=== PATIENT | female | born 1945 | race Caucasian/White ===

== ENCOUNTER 2018-04-09 11:56 | Emergency (ER) | payer MEDICARE | END 2018-04-09 14:15 | disposition left against medical advice (07) | LOC: JP.ED 11:56 | DX: Z53.21 Procedure and treatment not carried out due to patient leaving prior to being seen by health care provider (principal) ==

== ENCOUNTER 2018-04-10 03:19 | Inpatient (IN) | payer MEDICARE ==
[2018-04-10] MEDS ORDERED: methylPREDNISolone Sodium Succinate 125 MG/2 ML SDV IVPUSH ONE (03:40)
[2018-04-10] MEDS ORDERED: Doxycycline 100 MG in Sodium Chloride 0.9% 100 ML IV SCH (03:45)
[2018-04-10] MEDS ORDERED: Sodium Chloride 0.9% 1,000 ML IV SCH ×2 (03:45→13:00)
[2018-04-10] MEDS ORDERED: Ondansetron 4 MG/2 ML SDV IVPUSH ONE (03:49)
[2018-04-10] MEDS ORDERED: Morphine 2 MG/ML Syringe IVPUSH ONE (03:49)
[2018-04-10] MEDS ORDERED: Albuterol 0.083% 2.5 MG/3 ML Neb Soln NEB ONE (03:50)
--- NOTE | 2018-04-10 03:57 | EDM.PDOC ---
ED HPI GENERAL MEDICAL PROBLEM - General Chief Complaint: Respiratory Problem Stated Complaint: [facility] Time Seen by Provider: 04/10/18 03:27 Source of Information: Reports: Patient, EMS, RN History Limitations: Reports: No Limitations - History of Present Illness INITIAL COMMENTS - FREE TEXT/NARRATIVE: shortness of breath: This is a 73-year-old female presents to emergency room by EMS, she is experiencing shortness of breath. Patient reports has been sick with cough for the past 1-1/2 weeks worsening the past 2 days. Yesterday she was in the emergency room but did not wait for evaluation. She denies chest pain , nausea, vomiting, rash or fever. She did experience a deer tick bite approximately 2 weeks ago. No chronic medications noted. Reports no chronic health conditions except for COPD. Reports has a albuterol multidose inhaler. Smokes cigarettes at least 4 per day, but is trying to quit. 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 ( albuterol multidose inhaler at home) , IV/IO, Oxygen headache Pain Score (Numeric/FACES): 6 - Related Data Allergies Allergy/AdvReac Type Severity Reaction Status Date / Time amoxicillin [Amoxicillin] Allergy Airway Verified 04/10/18 03:35 Tightness Sulfa (Sulfonamide Allergy Rash Verified 04/10/18 03:35 Antibiotics) Home Meds: Home Meds Albuterol Sulfate [Albuterol Sulfate HFA] 2 puff IH Q6HR PRN 03/29/14 [History] Past Medical History HEENT History: Reports: Impaired Vision Respiratory History: Reports: Bronchitis, Recurrent, 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: Musculoskeletal History: Reports: Back Pain, Chronic, Fibromyalgia, Osteoarthritis - Infectious Disease History Infectious Disease History: Reports: Chicken Pox - Past Surgical History GI Surgical History: Reports: Cholecystectomy Neurological Surgical History: Reports: None Social & Family History - Family History Family Medical History: Unobtainable - Tobacco Use Smoking Status *Q: Current Every Day Smoker Years of Tobacco use: 50 Packs/Tins Daily: 0.2 Used Tobacco, but Quit: No Second Hand Smoke Exposure: Yes - Caffeine Use Caffeine Use: Reports: Coffee - Recreational Drug Use Recreational Drug Use: No - Living Situation & Occupation Living situation: Reports: , Alone Occupation: Retired (Lives alone in [facility] area. Has 5 children 3 live in the area.) ED ROS GENERAL - Review of Systems Review Of Systems: See Below Constitutional: Reports: Fatigue, Decreased Appetite, Other (Shortness of breath 1/2 weeks) HEENT: Reports: Other (Headache) Respiratory: Reports: Shortness of Breath, Wheezing, Cough Cardiovascular: Reports: No Symptoms Endocrine: Reports: Fatigue GI/Abdominal: Reports: No Symptoms : Reports: No Symptoms Musculoskeletal: Reports: No Symptoms Skin: Reports: Dryness Neurological: Reports: Headache Psychiatric: Reports: No Symptoms Hematologic/Lymphatic: Reports: No Symptoms Immunologic: Reports: No Symptoms ED EXAM, GENERAL - Physical Exam Exam: See Below Exam Limited By: No Limitations General Appearance: Alert, WD/WN, Mild Distress, Thin Eye Exam: Bilateral Eye: PERRL Ears: Normal External Exam Nose: Normal Inspection, Normal Mucosa, No Blood Throat/Mouth: Normal Inspection, Normal Lips, Normal Teeth, Normal Gums, Normal Oropharynx, Normal Voice, No Airway Compromise Head: Atraumatic, Normocephalic Neck: Normal Inspection, Supple, Non-Tender, Full Range of Motion Respiratory/Chest: Decreased Breath Sounds, Other (Diffuse wheezing noted with cough.) Cardiovascular: Normal Peripheral Pulses, Regular Rate, Rhythm, No Edema, No Murmur GI/Abdominal: Normal Bowel Sounds, Soft, Non-Tender, No Distention (Female) Exam: Deferred Rectal (Female) Exam: Deferred Back Exam: Normal Inspection Extremities: Normal Inspection, Normal Range of Motion, Non-Tender, Normal Capillary Refill Neurological: Alert, Oriented, Normal Cognition, No Motor/Sensory Deficits Psychiatric: Normal Affect, Normal Mood Skin Exam: Warm, Dry, Intact, Normal Color, Other (Single well-healed puncture wound noted to left at the base of the spine. No bull's-eye rashes noted) Lymphatic: No Adenopathy Course - Vital Signs Last Recorded V/S: Last Vital Signs Temp 35.0 C L 04/10/18 03:23 Pulse 102 H 04/10/18 03:50 Resp 14 04/10/18 03:50 BP 123/78 04/10/18 03:50 Pulse Ox 97 04/10/18 03:50 - Orders/Labs/Meds Orders: Active Orders 24 hr Category Date Time Status EKG Documentation Completion [RC] ASDIRECTED Care 04/10/18 03:42 Active RT Aerosol Therapy [RC] ASDIRECTED Care 04/10/18 03:50 Active Chest 1V Frontal [CR] Urgent Exams 04/10/18 03:38 Taken CULTURE BLOOD [BC] Urgent Lab 04/10/18 03:52 Received CULTURE BLOOD [BC] Urgent Lab 04/10/18 04:05 Received UA W/MICROSCOPIC [URIN] Urgent Lab 04/10/18 03:39 Ordered Doxycycline [Vibramycin] 100 mg Med 04/10/18 03:45 Active Sodium Chloride 0.9% [Normal Saline] 100 ml IV Q12H Sodium Chloride 0.9% [Normal Saline] 1,000 ml Med 04/10/18 03:45 Active IV ASDIRECTED Blood Culture x2 Reflex Set [OM.PC] Urgent Oth 04/10/18 03:39 Ordered EKG 12 Lead [EK] Urgent Ther 04/10/18 03:37 Ordered Medication Orders Sodium Chloride (Normal Saline) 1,000 mls @ 100 mls/hr IV ASDIRECTED RICARDO Last Admin: 04/10/18 03:53 Dose: 100 mls/hr Doxycycline Hyclate 100 mg/ (Sodium Chloride) 100 mls @ 100 mls/hr IV Q12H [facility] Last Admin: 04/10/18 04:13 Dose: 100 mls/hr Labs: Laboratory Tests 04/10/18 04/10/18 04/10/18 Range/Units 03:37 03:37 03:52 WBC 13.5 H (4.5-11.0) K/uL RBC 5.40 (3.30-5.50) M/uL Hgb 15.3 H (12.0-15.0) g/dL Hct 46.6 (36.0-48.0) % MCV 86 (80-98) fL MCH 28 (27-31) pg MCHC 33 (32-36) % Plt Count 366 (150-400) K/uL Neut % (Auto) 72 H (36-66) % Lymph % (Auto) 15 L (24-44) % [place] % (Auto) 8 H (2-6) % Eos % (Auto) 5 H (2-4) % Baso % (Auto) 0 (0-1) % PT (9.5-12.0) sec INR (0.80-1.20) Puncture Site Lt radial ABG pH 7.358 (7.350-7.450) ABG pCO2 49.0 H (35.0-42.0) mmHg ABG pO2 94.4 (75.0-100.0) mmHg ABG HCO3 26.8 H (22.0-26.0) mmol/L ABG Total CO2 23.5 (21.0-25.0) mmol/L ABG O2 Saturation 96.9 (95.0-98.0) % ABG O2 Content 20.3 (15.0-23.0) %vol ABG Base Excess 1.1 mm/L ABG Hemoglobin 15.2 (12.0-16.0) g/dL ABG Oxyhemoglobin 94.5 % ABG Carboxyhemoglobin 1.9 H (0.0-1.6) % ABG Methemoglobin 0.6 % Emmanuel Test Passed O2 Delivery Device Hi flow nasal cannu Oxygen Flow Rate 4 L Sodium 138 L (140-148) mmol/L Potassium 4.2 (3.6-5.2) mmol/L Chloride 102 (100-108) mmol/L Carbon Dioxide 29 (21-32) mmol/L Anion Gap 11.2 (5.0-14.0) mmol/L BUN 18 (7-18) mg/dL Creatinine 0.9 (0.6-1.0) mg/dL Est Cr Clr Drug Dosing 37.90 mL/min Estimated GFR (MDRD) > 60 (>60) Glucose 153 H (74-106) mg/dL Calcium 9.0 (8.5-10.1) mg/dL Magnesium (1.8-2.4) mg/dL Total Bilirubin 0.3 (0.2-1.0) mg/dL AST 24 (15-37) U/L ALT 24 (12-78) U/L Alkaline Phosphatase 108 (46-116) U/L Troponin I (0.000-0.056) ng/mL NT-Pro-B Natriuret Pep (5-450) pg/mL Total Protein 6.9 (6.4-8.2) g/dL Albumin 3.0 L (3.4-5.0) g/dL Globulin 3.9 H (2.3-3.5) g/dL Albumin/Globulin Ratio 0.8 L (1.2-2.2) Amylase (25-115) U/L Lipase (73-393) U/L TSH, Ultra Sensitive (0.358-3.740) uIU/mL 04/10/18 04/10/18 04/10/18 Range/Units 03:52 03:52 03:52 WBC (4.5-11.0) K/uL RBC (3.30-5.50) M/uL Hgb (12.0-15.0) g/dL Hct (36.0-48.0) % MCV (80-98) fL MCH (27-31) pg MCHC (32-36) % Plt Count (150-400) K/uL Neut % (Auto) (36-66) % Lymph % (Auto) (24-44) % [place] % (Auto) (2-6) % Eos % (Auto) (2-4) % Baso % (Auto) (0-1) % PT 11.5 (9.5-12.0) sec INR 1.07 (0.80-1.20) Puncture Site ABG pH (7.350-7.450) ABG pCO2 (35.0-42.0) mmHg ABG pO2 (75.0-100.0) mmHg ABG HCO3 (22.0-26.0) mmol/L ABG Total CO2 (21.0-25.0) mmol/L ABG O2 Saturation (95.0-98.0) % ABG O2 Content (15.0-23.0) %vol ABG Base Excess mm/L ABG Hemoglobin (12.0-16.0) g/dL ABG Oxyhemoglobin % ABG Carboxyhemoglobin (0.0-1.6) % ABG Methemoglobin % Emmanuel Test O2 Delivery Device Oxygen Flow Rate L Sodium (140-148) mmol/L Potassium (3.6-5.2) mmol/L Chloride (100-108) mmol/L Carbon Dioxide (21-32) mmol/L Anion Gap (5.0-14.0) mmol/L BUN (7-18) mg/dL Creatinine (0.6-1.0) mg/dL Est Cr Clr Drug Dosing mL/min Estimated GFR (MDRD) (>60) Glucose (74-106) mg/dL Calcium (8.5-10.1) mg/dL Magnesium 2.0 (1.8-2.4) mg/dL Total Bilirubin (0.2-1.0) mg/dL AST (15-37) U/L ALT (12-78) U/L Alkaline Phosphatase (46-116) U/L Troponin I 0.072 H* (0.000-0.056) ng/mL NT-Pro-B Natriuret Pep 279 (5-450) pg/mL Total Protein (6.4-8.2) g/dL Albumin (3.4-5.0) g/dL Globulin (2.3-3.5) g/dL Albumin/Globulin Ratio (1.2-2.2) Amylase 52 (25-115) U/L Lipase 51 L (73-393) U/L TSH, Ultra Sensitive 6.503 H (0.358-3.740) uIU/mL Meds: Medications Generic Name Dose Route Start Last Admin Trade Name Freq PRN Reason Stop Dose Admin Sodium Chloride 1,000 mls @ 100 mls/hr 04/10/18 03:45 04/10/18 03:53 Normal Saline IV 100 mls/hr ASDIRECTED RICARDO Administration Doxycycline Hyclate 100 mg/ 100 mls @ 100 mls/hr 04/10/18 03:45 04/10/18 04: 13 Sodium Chloride IV 100 mls/hr Q12H RICARDO Administration Discontinued Medications Generic Name Dose Route Start Last Admin Trade Name Freq PRN Reason Stop Dose Admin Albuterol 2.5 mg 04/10/18 03:50 04/10/18 04:09 Proventil Neb Soln NEB 04/10/18 03:51 2.5 mg ONETIME ONE Administration Methylprednisolone Sodium Succinate 125 mg 04/10/18 03:40 04/10/18 04:09 Solu-Medrol IVPUSH 04/10/18 03:41 125 mg ONETIME ONE Administration Morphine Sulfate 1 mg 04/10/18 03:49 04/10/18 04:00 Morphine IVPUSH 04/10/18 03:50 1 mg ONETIME ONE Administration Ondansetron HCl 4 mg 04/10/18 03:49 04/10/18 04:05 Zofran IVPUSH 04/10/18 03:50 4 mg ONETIME ONE Administration - Re-Assessments/Exams Free Text/Narrative Re-Assessment/Exam: 04/10/18 04:01 Patient placed in room 1209, workup for COPD exacerbation. Labs: CBC, CMP, TSH, troponin, magnesium, UA, ABGs, blood cultures Imaging: Chest x-ray Other: EKG Medications: Morphine 1 mg IV, normal saline at 100 ML's per hour, Solu-Medrol 120 5I milligrams IV, Zofran 4 mg IV, doxycycline 100 mg IV. Plan We'll admit to 2 [address]. for further care and treatment. Discussed with patient and her daughter and granddaughter, all in agreement. 04/10/18 04:57 Lab: Troponin 0.072, will repeat in 6 hours. Patient is not experiencing chest pain at this time. Departure - Departure Time of Disposition: 04:09 Disposition: Admitted As Inpatient 64 Condition: Fair Clinical Impression: COPD exacerbation, Tobacco use - Discharge Information - My Orders Last 24 Hours: My Active Orders 04/10/18 03:37 EKG 12 Lead [EK] Urgent 04/10/18 03:38 Chest 1V Frontal [CR] Urgent 04/10/18 03:39 UA W/MICROSCOPIC [URIN] Urgent Blood Culture x2 Reflex Set [OM.PC] Urgent 04/10/18 03:42 EKG Documentation Completion [RC] ASDIRECTED 04/10/18 03:45 Doxycycline [Vibramycin] 100 mg Sodium Chloride 0.9% [Normal Saline] 100 ml IV Q12H Sodium Chloride 0.9% [Normal Saline] 1,000 ml IV ASDIRECTED 04/10/18 03:50 RT Aerosol Therapy [RC] ASDIRECTED 04/10/18 03:52 CULTURE BLOOD [BC] Urgent 04/10/18 04:05 CULTURE BLOOD [BC] Urgent - Assessment/Plan Last 24 Hours: My Active Orders 04/10/18 03:37 EKG 12 Lead [EK] Urgent 04/10/18 03:38 Chest 1V Frontal [CR] Urgent 04/10/18 03:39 UA W/MICROSCOPIC [URIN] Urgent Blood Culture x2 Reflex Set [OM.PC] Urgent 04/10/18 03:42 EKG Documentation Completion [RC] ASDIRECTED 04/10/18 03:45 Doxycycline [Vibramycin] 100 mg Sodium Chloride 0.9% [Normal Saline] 100 ml IV Q12H Sodium Chloride 0.9% [Normal Saline] 1,000 ml IV ASDIRECTED 04/10/18 03:50 RT Aerosol Therapy [RC] ASDIRECTED 04/10/18 03:52 CULTURE BLOOD [BC] Urgent 04/10/18 04:05 CULTURE BLOOD [BC] Urgent
--- NOTE | 2018-04-10 04:58 | PCM.HP ---
H&P History of Present Illness - General Date of Service: 04/10/18 Admit Problem/Dx: Admission Diagnosis/Problem Admission Diagnosis/Problem Chronic obstructive pulmonary disease Source of Information: Patient, RN Notes Reviewed - History of Present Illness Initial Comments - Free Text/Narative: shortness of breath: This is a 73-year-old female presents to emergency room by EMS, she is experiencing shortness of breath. Patient reports has been sick with cough for the past 1-1/2 weeks worsening the past 2 days. Yesterday she was in the emergency room but did not wait for evaluation. She denies chest pain , nausea, vomiting, rash or fever. She did experience a deer tick bite approximately 2 weeks ago. No chronic medications noted. Reports no chronic health conditions except for COPD. Reports has a albuterol multidose inhaler. Smokes cigarettes at least 4 per day, but is trying to quit. Lives alone in [facility] Patient placed in room 1209, workup for COPD exacerbation. Labs: CBC, CMP, TSH, troponin, magnesium, UA, ABGs, blood cultures Imaging: Chest x-ray Other: EKG Medications: Morphine 1 mg IV, normal saline at 100 ML's per hour, Solu-Medrol 120 5I milligrams IV, Zofran 4 mg IV, doxycycline 100 mg IV. Plan We'll admit to 2 [address]. for further care and treatment. Discussed with patient and her daughter and granddaughter, all in agreement. 04/10/18 04:57 Lab: Troponin 0.072, will repeat in 6 hours. Patient is not experiencing chest pain at this time. Onset of Symptoms: Reports: Sudden Duration of Symptoms: Reports: Week(s): (1.5 weeks), Getting Worse Severity: Moderate Improves with: Reports: None Worsens with: Reports: None Context: Reports: Other (Tobacco use and COPD) Associated Symptoms: Reports: Cough, Headaches, Loss of Appetite, Shortness of Breath headache Pain Score (Numeric/FACES): 6 - Related Data Allergies/Adverse Reactions: Allergies Allergy/AdvReac Type Severity Reaction Status Date / Time amoxicillin [Amoxicillin] Allergy Airway Verified 04/10/18 03:35 Tightness Sulfa (Sulfonamide Allergy Rash Verified 04/10/18 03:35 Antibiotics) Home Medications: Home Meds Albuterol Sulfate [Albuterol Sulfate HFA] 2 puff IH Q6HR PRN 03/29/14 [History] Past Medical History HEENT History: Reports: Impaired Vision Respiratory History: Reports: Bronchitis, Recurrent, COPD [employer] History: Reports: Musculoskeletal History: Reports: Back Pain, Chronic, Fibromyalgia, Osteoarthritis - Infectious Disease History Infectious Disease History: Reports: Chicken Pox - Past Surgical History GI Surgical History: Reports: Cholecystectomy Neurological Surgical History: Reports: None Social & Family History - Family History Family Medical History: Unobtainable - Tobacco Use Smoking Status *Q: Current Every Day Smoker Years of Tobacco use: 50 Packs/Tins Daily: 0.2 Used Tobacco, but Quit: No Second Hand Smoke Exposure: Yes - Caffeine Use Caffeine Use: Reports: Coffee - Recreational Drug Use Recreational Drug Use: No - Living Situation & Occupation Living situation: Reports: , Alone Occupation: Retired (Lives alone in [facility]. Has 5 children 3 live in the area.) H&P Review of Systems - Review of Systems: Review Of Systems: See Below General: Reports: Weakness, Other (Shortness of breath with cough) HEENT: Reports: Headaches Pulmonary: Reports: Shortness of Breath, Wheezing, Cough, Sputum Cardiovascular: Reports: No Symptoms Gastrointestinal: Reports: No Symptoms Genitourinary: Reports: No Symptoms Musculoskeletal: Reports: No Symptoms Skin: Reports: Other (Reports tick bite 2 weeks ago to the low back) Psychiatric: Reports: No Symptoms Neurological: Reports: Headache Hematologic/Lymphatic: Reports: No Symptoms Immunologic: Reports: No Symptoms Exam - Exam Exam: See Below - Vital Signs Vital Signs: Last Vital Signs Temp 35.0 C L 04/10/18 03:23 Pulse 102 H 04/10/18 03:50 Resp 14 04/10/18 03:50 BP 123/78 04/10/18 03:50 Pulse Ox 97 04/10/18 03:50 Weight: 44.452 kg - Exam Quality Assessment: Supplemental Oxygen, DVT Prophylaxis General: Alert, Oriented, Cooperative, Mild Distress, Other (Thin, neat and well-groomed) HEENT: PERRLA, Conjunctiva Clear, EACs Clear, EOMI, Hearing Intact, Mucosa Moist & [place], Nares Patent, Normal Nasal Septum, Posterior Pharynx Clear, Pupils Equal, Pupils Reactive, TMs Clear Neck: Supple, Trachea Midline Lungs: Decreased Breath Sounds, Wheezing (Diffuse bilateral wheezing noted) Cardiovascular: Regular Rate, Regular Rhythm, Normal S1, Normal S2 GI/Abdominal Exam: Normal Bowel Sounds, Soft, Non-Tender (Female) Exam: Deferred Rectal (Female) Exam: Deferred Back Exam: Normal Inspection Extremities: Normal Inspection, Normal Range of Motion, Non-Tender, No Pedal Edema, Normal Capillary Refill Peripheral Pulses: 2+: Radial (L), Radial (R), Dorsalis Pedis (L), Dorsalis Pedis (R) Skin: Warm, Dry, Intact Neurological: Reflexes Equal Bilateral, Strength Equal Bilateral, Normal Speech , Normal Tone Neuro Extensive - Mental Status: Alert, Oriented x3, Normal Mood/Affect, Normal Cognition Neuro Extensive - Motor, Sensory, Reflexes: Normal Reflexes Psychiatric: Alert, Normal Affect, Normal Mood - Patient Data Lab Results Last 24 hrs: Laboratory Results - last 24 hr 04/10/18 04/10/18 04/10/18 Range/Units 03:37 03:37 03:52 WBC 13.5 H (4.5-11.0) K/uL RBC 5.40 (3.30-5.50) M/uL Hgb 15.3 H (12.0-15.0) g/dL Hct 46.6 (36.0-48.0) % MCV 86 (80-98) fL MCH 28 (27-31) pg MCHC 33 (32-36) % Plt Count 366 (150-400) K/uL Neut % (Auto) 72 H (36-66) % Lymph % (Auto) 15 L (24-44) % Lynn % (Auto) 8 H (2-6) % Eos % (Auto) 5 H (2-4) % Baso % (Auto) 0 (0-1) % PT (9.5-12.0) sec INR (0.80-1.20) Puncture Site Lt radial ABG pH 7.358 (7.350-7.450) ABG pCO2 49.0 H (35.0-42.0) mmHg ABG pO2 94.4 (75.0-100.0) mmHg ABG HCO3 26.8 H (22.0-26.0) mmol/L ABG Total CO2 23.5 (21.0-25.0) mmol/L ABG O2 Saturation 96.9 (95.0-98.0) % ABG O2 Content 20.3 (15.0-23.0) %vol ABG Base Excess 1.1 mm/L ABG Hemoglobin 15.2 (12.0-16.0) g/dL ABG Oxyhemoglobin 94.5 % ABG Carboxyhemoglobin 1.9 H (0.0-1.6) % ABG Methemoglobin 0.6 % Emmanuel Test Passed O2 Delivery Device Hi flow nasal cannu Oxygen Flow Rate 4 L Sodium 138 L (140-148) mmol/L Potassium 4.2 (3.6-5.2) mmol/L Chloride 102 (100-108) mmol/L Carbon Dioxide 29 (21-32) mmol/L Anion Gap 11.2 (5.0-14.0) mmol/L BUN 18 (7-18) mg/dL Creatinine 0.9 (0.6-1.0) mg/dL Est Cr Clr Drug Dosing 37.90 mL/min Estimated GFR (MDRD) > 60 (>60) Glucose 153 H (74-106) mg/dL Calcium 9.0 (8.5-10.1) mg/dL Magnesium (1.8-2.4) mg/dL Total Bilirubin 0.3 (0.2-1.0) mg/dL AST 24 (15-37) U/L ALT 24 (12-78) U/L Alkaline Phosphatase 108 (46-116) U/L Troponin I (0.000-0.056) ng/mL NT-Pro-B Natriuret Pep (5-450) pg/mL Total Protein 6.9 (6.4-8.2) g/dL Albumin 3.0 L (3.4-5.0) g/dL Globulin 3.9 H (2.3-3.5) g/dL Albumin/Globulin Ratio 0.8 L (1.2-2.2) Amylase (25-115) U/L Lipase (73-393) U/L TSH, Ultra Sensitive (0.358-3.740) uIU/mL 04/10/18 04/10/18 04/10/18 Range/Units 03:52 03:52 03:52 WBC (4.5-11.0) K/uL RBC (3.30-5.50) M/uL Hgb (12.0-15.0) g/dL Hct (36.0-48.0) % MCV (80-98) fL MCH (27-31) pg MCHC (32-36) % Plt Count (150-400) K/uL Neut % (Auto) (36-66) % Lymph % (Auto) (24-44) % Lynn % (Auto) (2-6) % Eos % (Auto) (2-4) % Baso % (Auto) (0-1) % PT 11.5 (9.5-12.0) sec INR 1.07 (0.80-1.20) Puncture Site ABG pH (7.350-7.450) ABG pCO2 (35.0-42.0) mmHg ABG pO2 (75.0-100.0) mmHg ABG HCO3 (22.0-26.0) mmol/L ABG Total CO2 (21.0-25.0) mmol/L ABG O2 Saturation (95.0-98.0) % ABG O2 Content (15.0-23.0) %vol ABG Base Excess mm/L ABG Hemoglobin (12.0-16.0) g/dL ABG Oxyhemoglobin % ABG Carboxyhemoglobin (0.0-1.6) % ABG Methemoglobin % Emmanuel Test O2 Delivery Device Oxygen Flow Rate L Sodium (140-148) mmol/L Potassium (3.6-5.2) mmol/L Chloride (100-108) mmol/L Carbon Dioxide (21-32) mmol/L Anion Gap (5.0-14.0) mmol/L BUN (7-18) mg/dL Creatinine (0.6-1.0) mg/dL Est Cr Clr Drug Dosing mL/min Estimated GFR (MDRD) (>60) Glucose (74-106) mg/dL Calcium (8.5-10.1) mg/dL Magnesium 2.0 (1.8-2.4) mg/dL Total Bilirubin (0.2-1.0) mg/dL AST (15-37) U/L ALT (12-78) U/L Alkaline Phosphatase (46-116) U/L Troponin I 0.072 H* (0.000-0.056) ng/mL NT-Pro-B Natriuret Pep 279 (5-450) pg/mL Total Protein (6.4-8.2) g/dL Albumin (3.4-5.0) g/dL Globulin (2.3-3.5) g/dL Albumin/Globulin Ratio (1.2-2.2) Amylase 52 (25-115) U/L Lipase 51 L (73-393) U/L TSH, Ultra Sensitive 6.503 H (0.358-3.740) uIU/mL Result Diagrams: 04/10/18 03:37 04/10/18 03:52 - Problem List (1) COPD exacerbation SNOMED Code(s): 832109856 ICD Code: J44.1 - CHRONIC OBSTRUCTIVE PULMONARY DISEASE W (ACUTE) EXACERBATION Status: Acute Priority: High Current Visit: Yes (2) Tobacco use SNOMED Code(s): 726503744 ICD Code: Z72.0 - TOBACCO USE Status: Acute Priority: High Current Visit: Yes (3) Elevated troponin I level SNOMED Code(s): 108406339 ICD Code: R74.8 - ABNORMAL LEVELS OF OTHER SERUM ENZYMES Status: Acute Priority: Medium Current Visit: Yes (4) Tick bite of back SNOMED Code(s): 61986622 ICD Code: S30.860A - INSECT BITE (NONVENOMOUS) OF LOWER BACK AND PELVIS, INIT ; W57.XXXA - BIT/STUNG BY NONVENOM INSECT & OTH NONVENOM ARTHROPODS, INIT Status: Acute Priority: Medium Current Visit: Yes Qualifiers: Encounter type: initial encounter Qualified Code(s): S30.860A - Insect bite (nonvenomous) of lower back and pelvis, initial encounter; W57.XXXA - Bitten or stung by nonvenomous insect and other nonvenomous arthropods, initial encounter Problem List Initiated/Reviewed/Updated: Yes Orders Last 24hrs: Active Orders 24 hr Category Date Time Status Patient Status Manage Transfer [TRANSFER] Routine ADT 04/10/18 04:11 Active EKG Documentation Completion [RC] ASDIRECTED Care 04/10/18 03:42 Active RT Aerosol Therapy [RC] ASDIRECTED Care 04/10/18 03:50 Active Chest 1V Frontal [CR] Urgent Exams 04/10/18 03:38 Taken CULTURE BLOOD [BC] Urgent Lab 04/10/18 03:52 Received CULTURE BLOOD [BC] Urgent Lab 04/10/18 04:05 Received UA W/MICROSCOPIC [URIN] Urgent Lab 04/10/18 03:39 Ordered Doxycycline [Vibramycin] 100 mg Med 04/10/18 03:45 Active Sodium Chloride 0.9% [Normal Saline] 100 ml IV Q12H Sodium Chloride 0.9% [Normal Saline] 1,000 ml Med 04/10/18 03:45 Active IV ASDIRECTED Blood Culture x2 Reflex Set [OM.PC] Urgent Oth 04/10/18 03:39 Ordered Resuscitation Status Routine Resus Stat 04/10/18 04:13 Ordered EKG 12 Lead [EK] Urgent Ther 04/10/18 03:37 Ordered Medication Orders Sodium Chloride (Normal Saline) 1,000 mls @ 100 mls/hr IV ASDIRECTED RICARDO Last Admin: 04/10/18 03:53 Dose: 100 mls/hr Doxycycline Hyclate 100 mg/ (Sodium Chloride) 100 mls @ 100 mls/hr IV Q12H COUNT INCLUDES THE [facility] Last Admin: 04/10/18 04:13 Dose: 100 mls/hr Assessment/Plan Comment:: ASSESSMENT / PLAN -This is 73-year-old present to ER with complaints of shortness of breath starting for the past one and half weeks worse the last 2 days, unable to breath effectively, call ambulance to transport to the hospital/ER for further care and treatment. In emergency room she had labs, chest x-ray, EKG Medications : albuterol neb, morphine 1 mg IV, Zofran 4 mg IV, IV fluids normal saline at 100 ML's per hour, Solu-Medrol 125 mg IV COPD exacerbation -Admit to [address] [place] [address] for further monitoring -IV Fluids for rehydration NS at 100 mL per hour -IV Antibiotic: doxycycline 100mg IV every 12 hours -IV Solu-Medrol 125 mg given in ER, order 625 mg IV every 6 hrs -albuterol nebulizer every 4 hours as needed for wheezing and cough -Duo nebu ; schedule nebulize every 6 hours oxygen to keep -oxygen per high flow nasal cannula to keep oxygen sats greater than 92% -Advise to notify nurses of any chest pain or other symptoms -blood cultures x2 pending Elevated troponin - Repeat at 0900 Tobacco use -Declines patch Tick bite -Lyme disease titer pending -IV doxycycline 100 mg every 12 hours Maintenance issues -Orders home meds: no home meds -Nutrition: regular diet -Avila catheter not indicated at this time -DVT: Lovenox 30 mg subcut -PPI: IV Protonix 40mg daily CODE STATUS: FULL CODE Admission status: Admit to [address] [place] [address] Admission justification. This patient will be admitted for inpatient services and is medically appropriate meeting medical necessity for inpatient admission as outlined in my documentation. I reasonably expect the patient will require inpatient services that span. Time over 2 midnights. I reasonably expect this patient to be discharged or transferred within 96 hours after admission to the our community hospital. Disposition: home Primary care provider: Dr. Andrade Hospitalist: Dr. Hernandez
[2018-04-10] MEDS ORDERED: Morphine 2 MG/ML Syringe IVPUSH PRN (05:02)
[2018-04-10] MEDS ORDERED: Docusate Sodium 100 MG Cap PO PRN (05:02)
[2018-04-10] MEDS ORDERED: Ondansetron 4 MG Tab.DIS PO PRN (05:02)
[2018-04-10] MEDS ORDERED: Ondansetron 4 MG/2 ML SDV IV PRN (05:02)
[2018-04-10] MEDS ORDERED: LORazepam 2 MG/ML SDV IV PRN (05:02)
[2018-04-10] MEDS ORDERED: Albuterol 0.083% 2.5 MG/3 ML Neb Soln NEB PRN (05:02)
[2018-04-10] MEDS ORDERED: Bisacodyl 5 MG Tab PO PRN (05:02)
[2018-04-10] MEDS ORDERED: Acetaminophen 325 MG Tab PO PRN (05:02)
[2018-04-10] MEDS ORDERED: Albuterol/Ipratropium 3.0-0.5 MG/3 ML Neb Soln NEB SCH (06:00)
[2018-04-10] MEDS ORDERED: Pantoprazole 40 MG Vial IVPUSH SCH (07:30)
[2018-04-10] MEDS: Enoxaparin 40 MG/0.4 ML Syringe SUBCUT SCH (08:41)
--- NOTE | 2018-04-10 08:42 | CR ---
CHEST: Portable CLINICAL HISTORY:SOB COMPARISON:None available FINDINGS: The lungs are emphysematous. There is mild prominence of the right hilum. This is likely p ulmonary vascularity. No infiltrate or effusions are identified. IMPRESSION: Moderate emphysematous changes
[2018-04-10] MEDS: oxyCODONE 5 MG Tab PO PRN (08:46)
[2018-04-10] MEDS ORDERED: methylPREDNISolone Sodium Succinate 40 MG/1 ML SDV IV SCH (09:10)
[2018-04-10] MEDS: methylPREDNISolone Sodium Succinate 125 MG/2 ML SDV IV SCH ×3 (09:58→21:42)
[2018-04-10] MEDS: Albuterol/Ipratropium 3.0-0.5 MG/3 ML Neb Soln NEB SCH ×3 (11:03→20:36)
--- NOTE | 2018-04-10 12:12 | PCM.PN ---
- General Info Date of Service: 04/10/18 Admission Dx/Problem (Free Text): COPD, SOB Subjective Update: Ms. Whitten states she has been having increased SOB over the last week or so. It was worse yesterday and attempted to be seen in the ER. She left without being seen at that time but returned later and was admitted due to her SOB and COPD. This morning the patient states she feels '90%' better but still feels SOB. Functional Status: Reports: Pain Controlled - Review of Systems General: Reports: Weakness. Denies: Fever HEENT: Reports: No Symptoms Pulmonary: Reports: Shortness of Breath, Wheezing Cardiovascular: Denies: Chest Pain, Palpitations Gastrointestinal: Reports: Decreased Appetite Genitourinary: Reports: No Symptoms Skin: Reports: No Symptoms Neurological: Reports: No Symptoms - Patient Data Vitals - Most Recent: Last Vital Signs Temp 35.6 C 04/10/18 11:00 Pulse 79 04/10/18 11:00 Resp 18 04/10/18 11:00 BP 92/54 L 04/10/18 11:00 Pulse Ox 96 04/10/18 11:00 Weight - Most Recent: 44.452 kg I&O - Last 24 Hours: Intake & Output 04/09/18 04/10/18 04/10/18 22:59 06:59 14:59 Output Total 200 Balance -200 Lab Results Last 24 Hours: Laboratory Results - last 24 hr 04/10/18 04/10/18 04/10/18 Range/Units 03:37 03:37 03:52 WBC 13.5 H (4.5-11.0) K/uL RBC 5.40 (3.30-5.50) M/uL Hgb 15.3 H (12.0-15.0) g/dL Hct 46.6 (36.0-48.0) % MCV 86 (80-98) fL MCH 28 (27-31) pg MCHC 33 (32-36) % Plt Count 366 (150-400) K/uL Neut % (Auto) 72 H (36-66) % Lymph % (Auto) 15 L (24-44) % [place] % (Auto) 8 H (2-6) % Eos % (Auto) 5 H (2-4) % Baso % (Auto) 0 (0-1) % PT (9.5-12.0) sec INR (0.80-1.20) Puncture Site Lt radial ABG pH 7.358 (7.350-7.450) ABG pCO2 49.0 H (35.0-42.0) mmHg ABG pO2 94.4 (75.0-100.0) mmHg ABG HCO3 26.8 H (22.0-26.0) mmol/L ABG Total CO2 23.5 (21.0-25.0) mmol/L ABG O2 Saturation 96.9 (95.0-98.0) % ABG O2 Content 20.3 (15.0-23.0) %vol ABG Base Excess 1.1 mm/L ABG Hemoglobin 15.2 (12.0-16.0) g/dL ABG Oxyhemoglobin 94.5 % ABG Carboxyhemoglobin 1.9 H (0.0-1.6) % ABG Methemoglobin 0.6 % Emmanuel Test Passed O2 Delivery Device Hi flow nasal cannu Oxygen Flow Rate 4 L Sodium 138 L (140-148) mmol/L Potassium 4.2 (3.6-5.2) mmol/L Chloride 102 (100-108) mmol/L Carbon Dioxide 29 (21-32) mmol/L Anion Gap 11.2 (5.0-14.0) mmol/L BUN 18 (7-18) mg/dL Creatinine 0.9 (0.6-1.0) mg/dL Est Cr Clr Drug Dosing 37.90 mL/min Estimated GFR (MDRD) > 60 (>60) Glucose 153 H (74-106) mg/dL Calcium 9.0 (8.5-10.1) mg/dL Magnesium (1.8-2.4) mg/dL Total Bilirubin 0.3 (0.2-1.0) mg/dL AST 24 (15-37) U/L ALT 24 (12-78) U/L Alkaline Phosphatase 108 (46-116) U/L Troponin I (0.000-0.056) ng/mL NT-Pro-B Natriuret Pep (5-450) pg/mL Total Protein 6.9 (6.4-8.2) g/dL Albumin 3.0 L (3.4-5.0) g/dL Globulin 3.9 H (2.3-3.5) g/dL Albumin/Globulin Ratio 0.8 L (1.2-2.2) Amylase (25-115) U/L Lipase (73-393) U/L TSH, Ultra Sensitive (0.358-3.740) uIU/mL Urine Color Urine Appearance Urine pH (4.5-8.0) Ur Specific [place] (1.008-1.030) Urine Protein (NEGATIVE) mg/dL Urine Glucose (UA) (NEGATIVE) mg/dL Urine Ketones (NEGATIVE) mg/dL Urine Occult Blood (NEGATIVE) Urine Nitrite (NEGATIVE) Urine Bilirubin (NEGATIVE) Urine Urobilinogen (NORMAL) mg/dL Ur Leukocyte Esterase (NEGATIVE) Urine RBC (0-5) Urine WBC (0-5) Ur Epithelial Cells Amorphous Sediment Urine Bacteria Urine Mucus 04/10/18 04/10/18 04/10/18 Range/Units 03:52 03:52 03:52 WBC (4.5-11.0) K/uL RBC (3.30-5.50) M/uL Hgb (12.0-15.0) g/dL Hct (36.0-48.0) % MCV (80-98) fL MCH (27-31) pg MCHC (32-36) % Plt Count (150-400) K/uL Neut % (Auto) (36-66) % Lymph % (Auto) (24-44) % [place] % (Auto) (2-6) % Eos % (Auto) (2-4) % Baso % (Auto) (0-1) % PT 11.5 (9.5-12.0) sec INR 1.07 (0.80-1.20) Puncture Site ABG pH (7.350-7.450) ABG pCO2 (35.0-42.0) mmHg ABG pO2 (75.0-100.0) mmHg ABG HCO3 (22.0-26.0) mmol/L ABG Total CO2 (21.0-25.0) mmol/L ABG O2 Saturation (95.0-98.0) % ABG O2 Content (15.0-23.0) %vol ABG Base Excess mm/L ABG Hemoglobin (12.0-16.0) g/dL ABG Oxyhemoglobin % ABG Carboxyhemoglobin (0.0-1.6) % ABG Methemoglobin % Emmanuel Test O2 Delivery Device Oxygen Flow Rate L Sodium (140-148) mmol/L Potassium (3.6-5.2) mmol/L Chloride (100-108) mmol/L Carbon Dioxide (21-32) mmol/L Anion Gap (5.0-14.0) mmol/L BUN (7-18) mg/dL Creatinine (0.6-1.0) mg/dL Est Cr Clr Drug Dosing mL/min Estimated GFR (MDRD) (>60) Glucose (74-106) mg/dL Calcium (8.5-10.1) mg/dL Magnesium 2.0 (1.8-2.4) mg/dL Total Bilirubin (0.2-1.0) mg/dL AST (15-37) U/L ALT (12-78) U/L Alkaline Phosphatase (46-116) U/L Troponin I 0.072 H* (0.000-0.056) ng/mL NT-Pro-B Natriuret Pep 279 (5-450) pg/mL Total Protein (6.4-8.2) g/dL Albumin (3.4-5.0) g/dL Globulin (2.3-3.5) g/dL Albumin/Globulin Ratio (1.2-2.2) Amylase 52 (25-115) U/L Lipase 51 L (73-393) U/L TSH, Ultra Sensitive 6.503 H (0.358-3.740) uIU/mL Urine Color Urine Appearance Urine pH (4.5-8.0) Ur Specific [place] (1.008-1.030) Urine Protein (NEGATIVE) mg/dL Urine Glucose (UA) (NEGATIVE) mg/dL Urine Ketones (NEGATIVE) mg/dL Urine Occult Blood (NEGATIVE) Urine Nitrite (NEGATIVE) Urine Bilirubin (NEGATIVE) Urine Urobilinogen (NORMAL) mg/dL Ur Leukocyte Esterase (NEGATIVE) Urine RBC (0-5) Urine WBC (0-5) Ur Epithelial Cells Amorphous Sediment Urine Bacteria Urine Mucus 04/10/18 04/10/18 Range/Units 05:02 08:55 WBC (4.5-11.0) K/uL RBC (3.30-5.50) M/uL Hgb (12.0-15.0) g/dL Hct (36.0-48.0) % MCV (80-98) fL MCH (27-31) pg MCHC (32-36) % Plt Count (150-400) K/uL Neut % (Auto) (36-66) % Lymph % (Auto) (24-44) % [place] % (Auto) (2-6) % Eos % (Auto) (2-4) % Baso % (Auto) (0-1) % PT (9.5-12.0) sec INR (0.80-1.20) Puncture Site ABG pH (7.350-7.450) ABG pCO2 (35.0-42.0) mmHg ABG pO2 (75.0-100.0) mmHg ABG HCO3 (22.0-26.0) mmol/L ABG Total CO2 (21.0-25.0) mmol/L ABG O2 Saturation (95.0-98.0) % ABG O2 Content (15.0-23.0) %vol ABG Base Excess mm/L ABG Hemoglobin (12.0-16.0) g/dL ABG Oxyhemoglobin % ABG Carboxyhemoglobin (0.0-1.6) % ABG Methemoglobin % Emmanuel Test O2 Delivery Device Oxygen Flow Rate L Sodium (140-148) mmol/L Potassium (3.6-5.2) mmol/L Chloride (100-108) mmol/L Carbon Dioxide (21-32) mmol/L Anion Gap (5.0-14.0) mmol/L BUN (7-18) mg/dL Creatinine (0.6-1.0) mg/dL Est Cr Clr Drug Dosing mL/min Estimated GFR (MDRD) (>60) Glucose (74-106) mg/dL Calcium (8.5-10.1) mg/dL Magnesium (1.8-2.4) mg/dL Total Bilirubin (0.2-1.0) mg/dL AST (15-37) U/L ALT (12-78) U/L Alkaline Phosphatase (46-116) U/L Troponin I 0.113 H* (0.000-0.056) ng/mL NT-Pro-B Natriuret Pep (5-450) pg/mL Total Protein (6.4-8.2) g/dL Albumin (3.4-5.0) g/dL Globulin (2.3-3.5) g/dL Albumin/Globulin Ratio (1.2-2.2) Amylase (25-115) U/L Lipase (73-393) U/L TSH, Ultra Sensitive (0.358-3.740) uIU/mL Urine Color Yellow Urine Appearance Slightly cloudy Urine pH 5.0 (4.5-8.0) Ur Specific [place] 1.020 (1.008-1.030) Urine Protein Negative (NEGATIVE) mg/dL Urine Glucose (UA) Normal (NEGATIVE) mg/dL Urine Ketones Negative (NEGATIVE) mg/dL Urine Occult Blood Moderate (NEGATIVE) Urine Nitrite Negative (NEGATIVE) Urine Bilirubin Negative (NEGATIVE) Urine Urobilinogen Normal (NORMAL) mg/dL Ur Leukocyte Esterase Large (NEGATIVE) Urine RBC 0-5 (0-5) Urine WBC 5-10 H (0-5) Ur Epithelial Cells Moderate Amorphous Sediment Not seen Urine Bacteria Moderate Urine Mucus Few Med Orders - Current: Current Medications Acetaminophen (Tylenol) 650 mg PO Q4H PRN PRN Reason: Pain (Mild 1-3)/fever Albuterol (Proventil Neb Soln) 2.5 mg NEB Q4H PRN PRN Reason: Shortness Of Breath/wheezing Albuterol/Ipratropium (Duoneb 3.0-0.5 Mg/3 Ml) 3 ml NEB QIDRT [facility] Last Admin: 04/10/18 11:03 Dose: Not Given Bisacodyl (Dulcolax) 5 mg PO DAILY PRN PRN Reason: Constipation Docusate Sodium (Colace) 100 mg PO BID PRN PRN Reason: Constipation Enoxaparin Sodium (Lovenox) 40 mg SUBCUT DAILY [facility] Last Admin: 04/10/18 08:41 Dose: 40 mg Sodium Chloride (Normal Saline) 1,000 mls @ 100 mls/hr IV ASDIRECTED [facility] Last Admin: 04/10/18 03:53 Dose: 100 mls/hr Doxycycline Hyclate 100 mg/ (Sodium Chloride) 100 mls @ 100 mls/hr IV Q12H [facility] Lorazepam (Ativan) 1 mg IV Q6H PRN PRN Reason: Nausea/Vomiting Methylprednisolone Sodium Succinate (Solu-Medrol) 62.5 mg IV Q6H [facility] Last Admin: 04/10/18 09:58 Dose: 62.5 mg Morphine Sulfate (Morphine) 0 mg IVPUSH Q2H PRN PRN Reason: Pain (severe 7-10) Ondansetron HCl (Zofran Odt) 4 mg PO Q6H PRN PRN Reason: Nausea able to take PO Last Admin: 04/10/18 09:52 Dose: 4 mg Ondansetron HCl (Zofran) 4 mg IV Q4H PRN PRN Reason: Nausea/Vomiting Last Admin: 04/10/18 10:26 Dose: 4 mg Oxycodone HCl (Oxycodone) 5 mg PO Q4H PRN PRN Reason: Pain (moderate 4-6) Last Admin: 04/10/18 08:46 Dose: 5 mg Pantoprazole Sodium (Protonix Iv) 40 mg IVPUSH DAILY@0730 [facility] Last Admin: 04/10/18 08:39 Dose: 40 mg Discontinued Medications Albuterol (Proventil Neb Soln) 2.5 mg NEB ONETIME ONE Stop: 04/10/18 03:51 Last Admin: 04/10/18 04:09 Dose: 2.5 mg Albuterol/Ipratropium (Duoneb 3.0-0.5 Mg/3 Ml) 3 ml NEB QID [facility] Last Admin: 04/10/18 05:55 Dose: 3 ml Doxycycline Hyclate 100 mg/ (Sodium Chloride) 100 mls @ 100 mls/hr IV Q12H [facility] Last Admin: 04/10/18 04:13 Dose: 100 mls/hr Methylprednisolone Sodium Succinate (Solu-Medrol) 125 mg IVPUSH ONETIME ONE Stop: 04/10/18 03:41 Last Admin: 04/10/18 04:09 Dose: 125 mg Methylprednisolone Sodium Succinate (Solu-Medrol) 62.5 mg IV Q6H [facility] Morphine Sulfate (Morphine) 1 mg IVPUSH ONETIME ONE Stop: 04/10/18 03:50 Last Admin: 04/10/18 04:00 Dose: 1 mg Ondansetron HCl (Zofran) 4 mg IVPUSH ONETIME ONE Stop: 04/10/18 03:50 Last Admin: 04/10/18 04:05 Dose: 4 mg - Exam Quality Assessment: Supplemental Oxygen, DVT Prophylaxis General: Alert, Oriented, Cooperative HEENT: Pupils Equal, Pupils Reactive Neck: Supple Lungs: Decreased Breath Sounds, Crackles, Wheezing Cardiovascular: Regular Rate GI/Abdominal Exam: Normal Bowel Sounds, Soft, Non-Tender Extremities: Normal Inspection, No Pedal Edema Skin: Warm, Dry, Intact Neurological: No New Focal Deficit Psy/Mental Status: Alert - Problem List & Annotations (1) COPD exacerbation SNOMED Code(s): 708101158 Code(s): J44.1 - CHRONIC OBSTRUCTIVE PULMONARY DISEASE W (ACUTE) EXACERBATION Status: Acute Priority: High Current Visit: Yes (2) Elevated troponin I level SNOMED Code(s): 807039090 Code(s): R74.8 - ABNORMAL LEVELS OF OTHER SERUM ENZYMES Status: Acute Priority: Medium Current Visit: Yes (3) Tick bite of back SNOMED Code(s): 18726127 Code(s): S30.860A - INSECT BITE (NONVENOMOUS) OF LOWER BACK AND PELVIS, INIT ; W57.XXXA - BIT/STUNG BY NONVENOM INSECT & OTH NONVENOM ARTHROPODS, INIT Status: Acute Priority: Medium Current Visit: Yes Qualifiers: Encounter type: initial encounter Qualified Code(s): S30.860A - Insect bite (nonvenomous) of lower back and pelvis, initial encounter; W57.XXXA - Bitten or stung by nonvenomous insect and other nonvenomous arthropods, initial encounter - Problem List Review Problem List Initiated/Reviewed/Updated: Yes - Plan Plan:: ASSESSMENT / PLAN COPD exacerbation - patient feels she has improved since admission but still SOB. Patient continues on oxymizer at 3L with sats at 96% -IV Fluids for rehydration NS at 50mL per hour -IV Antibiotic: doxycycline 100mg IV every 12 hours -IV Solu-Medrol 125 mg given in ER, order 625 mg IV every 6 hrs -albuterol nebulizer every 4 hours as needed for wheezing and cough -Duo nebu ; schedule nebulize every 6 hours oxygen to keep -oxygen per high flow nasal cannula to keep oxygen sats greater than 92% -Advise to notify nurses of any chest pain or other symptoms -blood cultures x2 pending Elevated troponin - Repeat at 3pm -on admit 0.072 and recheck value of 0.113 - -patient denies chest pain Tobacco use -Declines patch Tick bite -Lyme disease titer pending -IV doxycycline 100 mg every 12 hours Maintenance issues -Orders home meds: no home meds -Nutrition: regular diet -Avila catheter not indicated at this time -DVT: Lovenox 30 mg subcut -PPI: IV Protonix 40mg daily CODE STATUS: FULL CODE Hospital status: Inpatient status Disposition: home Primary care provider: Dr. Andrade Hospitalist: Dr. Hernandez
[2018-04-10] MEDS: Doxycycline 100 MG in Sodium Chloride 0.9% 100 ML IV SCH (15:37)
[2018-04-11] MEDS: methylPREDNISolone Sodium Succinate 125 MG/2 ML SDV IV SCH ×2 (04:45→09:26)
[2018-04-11] MEDS: Doxycycline 100 MG in Sodium Chloride 0.9% 100 ML IV SCH ×2 (04:48→16:00)
[2018-04-11] MEDS: Albuterol/Ipratropium 3.0-0.5 MG/3 ML Neb Soln NEB SCH ×4 (07:18→20:27)
[2018-04-11] MEDS: Pantoprazole 40 MG Tab.CR PO SCH (07:48)
[2018-04-11] MEDS: Enoxaparin 40 MG/0.4 ML Syringe SUBCUT SCH (09:33)
[2018-04-11] MEDS ORDERED: LORazepam 2 MG/ML SDV IV PRN (13:43)
--- NOTE | 2018-04-11 13:46 | PCM.PN ---
- General Info Date of Service: 04/11/18 Subjective Update: This patient has noted further improvement over the past 24 hours with less shortness of breath, she continues to have episodes of coughing. Level of supplemental oxygen has been decreased now to 2 L/m via nasal cannula, she is off of the Optimizer. Vital signs have been stable and she has remained afebrile. - Review of Systems General: Reports: Weakness. Denies: Fever, Chills Pulmonary: Reports: Shortness of Breath, Cough, Wheezing. Denies: Sputum, Hemoptysis Cardiovascular: Reports: Dyspnea on Exertion. Denies: Chest Pain, Palpitations , Orthopnea, PND, Edema - Patient Data Vitals - Most Recent: Last Vital Signs Temp 96.8 F 04/11/18 11:08 Pulse 72 04/11/18 11:08 Resp 16 04/11/18 11:08 BP 93/51 L 04/11/18 11:08 Pulse Ox 95 04/11/18 13:09 Weight - Most Recent: 97 lb 15.998 oz I&O - Last 24 Hours: Intake & Output 04/10/18 04/11/18 04/11/18 22:59 06:59 14:59 Intake Total 1319 1019 Output Total 429 684 6036 Balance 894 719 -1050 Lab Results Last 24 Hours: Laboratory Results - last 24 hr 04/10/18 04/11/18 04/11/18 Range/Units 15:03 05:51 05:51 WBC 8.6 (4.5-11.0) K/uL RBC 4.51 (3.30-5.50) M/uL Hgb 12.8 D (12.0-15.0) g/dL Hct 39.9 (36.0-48.0) % MCV 89 (80-98) fL MCH 28 (27-31) pg MCHC 32 (32-36) % Plt Count 333 (150-400) K/uL Neut % (Auto) 76 H (36-66) % Lymph % (Auto) 17 L (24-44) % [place] % (Auto) 6 (2-6) % Eos % (Auto) 0 L (2-4) % Baso % (Auto) 0 (0-1) % Troponin I 0.075 H* 0.096 H* (0.000-0.056) ng/mL Richy Results Last 24 Hours: Microbiology 04/11/18 08:45 Gram Stain - Final Sputum - Expectorated 04/10/18 04:05 Aerobic Blood Culture - Preliminary Blood - Arm, Left NO GROWTH AFTER 1 DAY Anaerobic Blood Culture - Preliminary NO GROWTH AFTER 1 DAY 04/10/18 03:52 Aerobic Blood Culture - Preliminary Blood - Arm, Right NO GROWTH AFTER 1 DAY Anaerobic Blood Culture - Preliminary NO GROWTH AFTER 1 DAY Med Orders - Current: Current Medications Acetaminophen (Tylenol) 650 mg PO Q4H PRN PRN Reason: Pain (Mild 1-3)/fever Albuterol (Proventil Neb Soln) 2.5 mg NEB Q4H PRN PRN Reason: Shortness Of Breath/wheezing Albuterol/Ipratropium (Duoneb 3.0-0.5 Mg/3 Ml) 3 ml NEB QIDRT [facility] Last Admin: 04/11/18 11:13 Dose: 3 ml Bisacodyl (Dulcolax) 5 mg PO DAILY PRN PRN Reason: Constipation Docusate Sodium (Colace) 100 mg PO BID PRN PRN Reason: Constipation Enoxaparin Sodium (Lovenox) 40 mg SUBCUT DAILY [facility] Last Admin: 04/11/18 09:33 Dose: Not Given Doxycycline Hyclate 100 mg/ (Sodium Chloride) 100 mls @ 100 mls/hr IV Q12H [facility] Last Admin: 04/11/18 04:48 Dose: 100 mls/hr Morphine Sulfate (Morphine) 0 mg IVPUSH Q2H PRN PRN Reason: Pain (severe 7-10) Ondansetron HCl (Zofran Odt) 4 mg PO Q6H PRN PRN Reason: Nausea able to take PO Last Admin: 04/10/18 09:52 Dose: 4 mg Ondansetron HCl (Zofran) 4 mg IV Q4H PRN PRN Reason: Nausea/Vomiting Last Admin: 04/10/18 10:26 Dose: 4 mg Oxycodone HCl (Oxycodone) 5 mg PO Q4H PRN PRN Reason: Pain (moderate 4-6) Last Admin: 04/10/18 08:46 Dose: 5 mg Pantoprazole Sodium (Protonix) 40 mg PO ACBREAKFAST [facility] Last Admin: 04/11/18 07:48 Dose: 40 mg Discontinued Medications Albuterol (Proventil Neb Soln) 2.5 mg NEB ONETIME ONE Stop: 04/10/18 03:51 Last Admin: 04/10/18 04:09 Dose: 2.5 mg Albuterol/Ipratropium (Duoneb 3.0-0.5 Mg/3 Ml) 3 ml NEB QID [facility] Last Admin: 04/10/18 05:55 Dose: 3 ml Sodium Chloride (Normal Saline) 1,000 mls @ 100 mls/hr IV ASDIRECTED [facility] Last Admin: 04/10/18 03:53 Dose: 100 mls/hr Doxycycline Hyclate 100 mg/ (Sodium Chloride) 100 mls @ 100 mls/hr IV Q12H [facility] Last Admin: 04/10/18 04:13 Dose: 100 mls/hr Sodium Chloride (Normal Saline) 1,000 mls @ 50 mls/hr IV ASDIRECTED [facility] Last Admin: 04/11/18 04:42 Dose: 50 mls/hr Lorazepam (Ativan) 1 mg IV Q6H PRN PRN Reason: Nausea/Vomiting Methylprednisolone Sodium Succinate (Solu-Medrol) 125 mg IVPUSH ONETIME ONE Stop: 04/10/18 03:41 Last Admin: 04/10/18 04:09 Dose: 125 mg Methylprednisolone Sodium Succinate (Solu-Medrol) 62.5 mg IV Q6H [facility] Methylprednisolone Sodium Succinate (Solu-Medrol) 62.5 mg IV Q6H [facility] Last Admin: 04/11/18 09:26 Dose: 62.5 mg Morphine Sulfate (Morphine) 1 mg IVPUSH ONETIME ONE Stop: 04/10/18 03:50 Last Admin: 04/10/18 04:00 Dose: 1 mg Ondansetron HCl (Zofran) 4 mg IVPUSH ONETIME ONE Stop: 04/10/18 03:50 Last Admin: 04/10/18 04:05 Dose: 4 mg Pantoprazole Sodium (Protonix Iv) 40 mg IVPUSH DAILY@0730 [facility] Last Admin: 04/10/18 08:39 Dose: 40 mg - Exam Quality Assessment: Supplemental Oxygen, DVT Prophylaxis General: Alert, Oriented, Cooperative, Mild Distress Lungs: Decreased Breath Sounds, Wheezing. No: Crackles, Rales, Rhonchi, Rub Cardiovascular: Regular Rate, Regular Rhythm, No Murmurs GI/Abdominal Exam: Soft, Non-Tender, No Organomegaly, No Distention Extremities: Non-Tender, No Pedal Edema Skin: Warm, Dry - Problem List Review Problem List Initiated/Reviewed/Updated: Yes - My Orders Last 24 Hours: My Active Orders 04/11/18 13:42 Discontinue Telemetry Monitoring [Cardiac Monitoring Discontinue] [RC] Click to Edit Convert IV to Saline Lock [OM.PC] Routine 04/11/18 13:43 LORazepam [Ativan] 0.5 mg IV Q4H PRN 04/11/18 13:45 methylPREDNISolone Sod Succ [Solu-MEDROL] 40 mg IV Q8H - Plan Plan:: ASSESSMENT / PLAN COPD exacerbation - improved since admission with less shortness of breath and cough -Saline lock IV -IV Antibiotic: doxycycline 100mg IV every 12 hours -IV Solu-Medrol 40 mg IV every 8 hours -albuterol nebulizer every 4 hours as needed for wheezing and cough -Duo nebu ; schedule nebulize every 6 hours oxygen to keep -oxygen per high flow nasal cannula to keep oxygen sats greater than 92% -blood cultures x2 pending Elevated troponin-remains mildly elevated with no significant increase, likely baseline for this patient Tobacco use -Declines patch Tick bite -Lyme disease titer pending -IV doxycycline 100 mg every 12 hours Maintenance issues -Orders home meds: no home meds -Nutrition: regular diet -Avila catheter not indicated at this time -DVT: Lovenox 30 mg subcut -PPI: IV Protonix 40mg daily CODE STATUS: FULL CODE Hospital status: Inpatient status Disposition: home Primary care provider: Dr. Andrade Hospitalist: Dr. Hernandez
[2018-04-11] MEDS: methylPREDNISolone Sodium Succinate 40 MG/1 ML SDV IV SCH (17:24)
[2018-04-11] MEDS: oxyCODONE 5 MG Tab PO PRN (21:57)
[2018-04-12] MEDS: methylPREDNISolone Sodium Succinate 40 MG/1 ML SDV IV SCH ×2 (03:29→11:08)
[2018-04-12] MEDS: Doxycycline 100 MG in Sodium Chloride 0.9% 100 ML IV SCH (03:31)
[2018-04-12 07:03] VITALS: BP 115/61
[2018-04-12] MEDS: Albuterol/Ipratropium 3.0-0.5 MG/3 ML Neb Soln NEB SCH ×2 (07:13→11:20)
[2018-04-12] MEDS: Pantoprazole 40 MG Tab.CR PO SCH (07:24)
[2018-04-12] MEDS: Enoxaparin 40 MG/0.4 ML Syringe SUBCUT SCH (08:23)
--- NOTE | 2018-04-12 11:33 | PCM.DCSUM1 ---
Discharge Summary - Hospital Course Brief History: Ms. Whitten is a 73-year-old woman who was admitted through the emergency department with acute on chronic hypoxic respiratory failure secondary to COPD exacerbation and underlying bronchitis. - Discharge Data Discharge Date: 04/12/18 Discharge Disposition: Home, Self-Care 01 Condition: Fair - Discharge Diagnosis/Problem(s) (1) Bronchitis SNOMED Code(s): 64041163 ICD Code: J40 - BRONCHITIS, NOT SPECIFIED ACUTE OR CHRONIC Status: Acute Current Visit: Yes (2) Acute on chronic respiratory failure with hypoxia SNOMED Code(s): 76755936, 126629261 ICD Code: J96.21 - ACUTE AND CHRONIC RESPIRATORY FAILURE WITH HYPOXIA Status: Acute Current Visit: Yes (3) COPD exacerbation SNOMED Code(s): 086918882 ICD Code: J44.1 - CHRONIC OBSTRUCTIVE PULMONARY DISEASE W (ACUTE) EXACERBATION Status: Acute Priority: High Current Visit: Yes - Patient Summary/Data Hospital Course: This is a 73-year-old female presents to emergency room by EMS, she is experiencing shortness of breath. Patient reports has been sick with cough for the past 1-1/2 weeks worsening the past 2 days. Yesterday she was in the emergency room but did not wait for evaluation. She denies chest pain, nausea, vomiting, rash or fever. She did experience a deer tick bite approximately 2 weeks ago. No chronic medications noted. Reports no chronic health conditions except for COPD. Reports has a albuterol multidose inhaler. Smokes cigarettes at least 4 per day, but is trying to quit. Lives alone in [facility]. Evaluation in the emergency Department chest x-ray showed no obvious infiltrates , white blood cell count was found to be mildly to moderately elevated and she was afebrile. She had documented hypoxia at the time of arrival and was felt to have probable COPD exacerbation secondary to underlying bronchitis. She was admitted to the hospital and given IV fluids for hydration as well as antibiotic therapy with doxycycline 100 mg every 12 hours. In addition she was given IV Solu-Medrol and regular nebulizer therapy. Over the next 2 days of hospitalization she improved significantly, but was not yet back to baseline at the time of discharge. She will be discharged home with supplemental oxygen 2 L/ m via nasal cannula. On the morning of discharge she did have an oxygen saturation of 86% on room air while at rest. She will receive an additional 4 days of oral doxycycline as well as 4 days of oral prednisone. Activity will be as tolerated and she will resume her usual diet. Follow-up appointment will be scheduled with her primary care provider within one week. - Patient Instructions Diet: Usual Diet as Tolerated Activity: As Tolerated Other/Special Instructions: Please schedule follow-up appointment with primary care provider within one week. These arrange for home oxygen 2 L/m via nasal cannula. - Discharge Plan Prescriptions/Med Rec: Doxycycline [Vibramycin] 100 mg PO BID #8 cap oxyCODONE 5 mg PO Q4H PRN #12 tab PRN Reason: Pain predniSONE [Prednisone] 40 mg PO DAILY #8 tablet Home Medications: Home Meds Albuterol Sulfate [Albuterol Sulfate HFA] 2 puff IH Q6HR PRN 03/29/14 [History] Doxycycline [Vibramycin] 100 mg PO BID #8 cap 04/12/18 [Rx] oxyCODONE 5 mg PO Q4H PRN #12 tab 04/12/18 [Rx] predniSONE [Prednisone] 40 mg PO DAILY #8 tablet 04/12/18 [Rx] Referrals: Carla Swartz PA-C [Ordering Only Provider] - 04/17/18 11:00 am - Discharge Summary/Plan Comment DC Time >30 min.: No - Patient Data Vitals - Most Recent: Last Vital Signs Temp 96.1 F 04/12/18 07:00 Pulse 66 04/12/18 07:00 Resp 16 04/12/18 07:00 BP 115/61 04/12/18 07:00 Pulse Ox 97 04/12/18 07:00 Weight - Most Recent: 97 lb 15.998 oz I&O - Last 24 hours: Intake & Output 04/11/18 04/12/18 04/12/18 22:59 06:59 14:59 Intake Total 340 340 240 Output Total 250 300 Balance 90 40 240 [place] Results - Last 24 hrs: Microbiology 04/10/18 04:05 Aerobic Blood Culture - Preliminary Blood - Arm, Left NO GROWTH AFTER 2 DAYS Anaerobic Blood Culture - Preliminary NO GROWTH AFTER 2 DAYS 04/10/18 03:52 Aerobic Blood Culture - Preliminary Blood - Arm, Right NO GROWTH AFTER 2 DAYS Anaerobic Blood Culture - Preliminary NO GROWTH AFTER 2 DAYS 04/11/18 08:45 Gram Stain - Final Sputum - Expectorated Med Orders - Current: Current Medications Acetaminophen (Tylenol) 650 mg PO Q4H PRN PRN Reason: Pain (Mild 1-3)/fever Albuterol (Proventil Neb Soln) 2.5 mg NEB Q4H PRN PRN Reason: Shortness Of Breath/wheezing Albuterol/Ipratropium (Duoneb 3.0-0.5 Mg/3 Ml) 3 ml NEB QIDRT [facility] Last Admin: 04/12/18 11:20 Dose: Not Given Bisacodyl (Dulcolax) 5 mg PO DAILY PRN PRN Reason: Constipation Docusate Sodium (Colace) 100 mg PO BID PRN PRN Reason: Constipation Enoxaparin Sodium (Lovenox) 40 mg SUBCUT DAILY [facility] Last Admin: 04/12/18 08:23 Dose: Not Given Doxycycline Hyclate 100 mg/ (Sodium Chloride) 100 mls @ 100 mls/hr IV Q12H [facility] Last Admin: 04/12/18 03:31 Dose: 100 mls/hr Lorazepam (Ativan) 0.5 mg IV Q4H PRN PRN Reason: Nausea/Vomiting Methylprednisolone Sodium Succinate (Solu-Medrol) 40 mg IV Q8H [facility] Last Admin: 04/12/18 11:08 Dose: Not Given Morphine Sulfate (Morphine) 0 mg IVPUSH Q2H PRN PRN Reason: Pain (severe 7-10) Ondansetron HCl (Zofran Odt) 4 mg PO Q6H PRN PRN Reason: Nausea able to take PO Last Admin: 04/10/18 09:52 Dose: 4 mg Ondansetron HCl (Zofran) 4 mg IV Q4H PRN PRN Reason: Nausea/Vomiting Last Admin: 04/10/18 10:26 Dose: 4 mg Oxycodone HCl (Oxycodone) 5 mg PO Q4H PRN PRN Reason: Pain (moderate 4-6) Last Admin: 04/11/18 21:57 Dose: 5 mg Pantoprazole Sodium (Protonix) 40 mg PO ACBREAKFAST [facility] Last Admin: 04/12/18 07:24 Dose: 40 mg Discontinued Medications Albuterol (Proventil Neb Soln) 2.5 mg NEB ONETIME ONE Stop: 04/10/18 03:51 Last Admin: 04/10/18 04:09 Dose: 2.5 mg Albuterol/Ipratropium (Duoneb 3.0-0.5 Mg/3 Ml) 3 ml NEB QID [facility] Last Admin: 04/10/18 05:55 Dose: 3 ml Sodium Chloride (Normal Saline) 1,000 mls @ 100 mls/hr IV ASDIRECTED [facility] Last Admin: 04/10/18 03:53 Dose: 100 mls/hr Doxycycline Hyclate 100 mg/ (Sodium Chloride) 100 mls @ 100 mls/hr IV Q12H [facility] Last Admin: 04/10/18 04:13 Dose: 100 mls/hr Sodium Chloride (Normal Saline) 1,000 mls @ 50 mls/hr IV ASDIRECTED [facility] Last Admin: 04/11/18 04:42 Dose: 50 mls/hr Lorazepam (Ativan) 1 mg IV Q6H PRN PRN Reason: Nausea/Vomiting Methylprednisolone Sodium Succinate (Solu-Medrol) 125 mg IVPUSH ONETIME ONE Stop: 04/10/18 03:41 Last Admin: 04/10/18 04:09 Dose: 125 mg Methylprednisolone Sodium Succinate (Solu-Medrol) 62.5 mg IV Q6H [facility] Methylprednisolone Sodium Succinate (Solu-Medrol) 62.5 mg IV Q6H [facility] Last Admin: 04/11/18 09:26 Dose: 62.5 mg Morphine Sulfate (Morphine) 1 mg IVPUSH ONETIME ONE Stop: 04/10/18 03:50 Last Admin: 04/10/18 04:00 Dose: 1 mg Ondansetron HCl (Zofran) 4 mg IVPUSH ONETIME ONE Stop: 04/10/18 03:50 Last Admin: 04/10/18 04:05 Dose: 4 mg Pantoprazole Sodium (Protonix Iv) 40 mg IVPUSH DAILY@0730 [facility] Last Admin: 04/10/18 08:39 Dose: 40 mg - Exam Quality Assessment: Reports: DVT Prophylaxis General: Reports: Alert, Oriented, Cooperative, Mild Distress Lungs: Reports: Decreased Breath Sounds, Wheezing. Denies: Rales, Rhonchi, Rub Cardiovascular: Reports: Regular Rate, Regular Rhythm, No Murmurs GI/Abdominal Exam: Soft, Non-Tender, No Organomegaly, No Distention Extremities: Non-Tender, No Pedal Edema Skin: Reports: Warm, Dry, Intact
== END 2018-04-12 12:42 | disposition home or self-care (01) | DRG 190 ==
LOC: JP.ED 03:19 → JP.MS 04:11
PROVIDERS: ADMIT Hospitalist; ATTEND Hospitalist
DX: J44.0 Chronic obstructive pulmonary disease with (acute) lower respiratory infection (principal); J96.21 Acute and chronic respiratory failure with hypoxia; J20.9 Acute bronchitis, unspecified; J44.1 Chronic obstructive pulmonary disease with (acute) exacerbation; F17.210 Nicotine dependence, cigarettes, uncomplicated; S30.860A Insect bite (nonvenomous) of lower back and pelvis, initial encounter; R74.8 Abnormal levels of other serum enzymes; R06.02 Shortness of breath; R05 Cough; H54.7 Unspecified visual loss; Z88.1 Allergy status to other antibiotic agents; Z88.2 Allergy status to sulfonamides
CPT/HCPCS: 36415; 36600; 71045 ×2; 80053; 82150; 82803; 83690; 83735; 83880; 84443; 84484; 85025; 85610; 87040 ×2; 96374; 96375; 99285; J2270; J2405; J2930; J7030; 81001; 87070; 87077; 87205; 93005; 94640; 99284; A9270-GY; C9113; J1650; J2920; J7620

== ENCOUNTER 2018-05-11 07:16 | Emergency (ER) | payer MEDICARE ==
[2018-05-11 07:39] VITALS: BP 125/68
[2018-05-11] MEDS ORDERED: Albuterol/Ipratropium 3.0-0.5 MG/3 ML Neb Soln NEB ONE (08:03)
--- NOTE | 2018-05-11 08:09 | EDM.PDOC ---
ED HPI GENERAL MEDICAL PROBLEM - General Chief Complaint: Respiratory Problem Stated Complaint: BREATHING ISSUES Time Seen by Provider: 05/11/18 07:50 Source of Information: Reports: Patient, Old Records, RN History Limitations: Reports: No Limitations - History of Present Illness INITIAL COMMENTS - FREE TEXT/NARRATIVE: 73 yo female with known COPD and who is cutting down on her smoking presents with a complaint of a mild increase in her SOB and a productive cough. Is not sure about fever. Was hospitalized for her COPD about a month ago and her doctor extended her azithromycin once since the admission for a complaint of a productive cough. Last used albuterol via MDI about 0600h today. Is here from home with her daughter. Some rhinorrhea also, sometimes colored. Has been on low flow oxygen since her recent admission for the first time in her life. Onset: Gradual Duration: Day(s):, Getting Worse Location: Reports: Chest Quality: Reports: Other (no pain) Severity: Moderate Improves with: Reports: Medication Worsens with: Reports: Other (uncertain) Context: Reports: Other (life long smoker with known lung dz) Associated Symptoms: Reports: Cough, Shortness of Breath. 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 MDI 2 hrs ago) - Related Data Allergies Allergy/AdvReac Type Severity Reaction Status Date / Time amoxicillin [Amoxicillin] Allergy Severe Airway Verified 05/11/18 07:39 Tightness Sulfa (Sulfonamide Allergy Rash Verified 05/11/18 07:39 Antibiotics) Home Meds: Home Meds Albuterol Sulfate [Albuterol Sulfate HFA] 2 puff IH Q6HR PRN 03/29/14 [History] Doxycycline Hyclate 100 mg PO BID #14 capsule 05/11/18 [Rx] predniSONE 20 mg PO BID #10 tab 05/11/18 [Rx] Past Medical History HEENT History: Reports: Impaired Vision Respiratory History: Reports: Bronchitis, Recurrent, COPD 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: Musculoskeletal History: Reports: Back Pain, Chronic, Fibromyalgia, Osteoarthritis Dermatologic History: Reports: Psoriasis - Infectious Disease History Infectious Disease History: Reports: Chicken Pox - Past Surgical History GI Surgical History: Reports: Cholecystectomy Neurological Surgical History: Reports: None Musculoskeletal Surgical History: Reports: None Social & Family History - Family History Family Medical History: Unobtainable - Tobacco Use Smoking Status *Q: Current Every Day Smoker Years of Tobacco use: 60 Packs/Tins Daily: 0.5 - Caffeine Use Caffeine Use: Reports: Coffee - Recreational Drug Use Recreational Drug Use: No - Living Situation & Occupation Living situation: Reports: , Alone Occupation: Retired (Lives alone in [facility]. Has 5 children 3 live in the area.) ED ROS GENERAL - Review of Systems Review Of Systems: See Below Constitutional: Reports: No Symptoms HEENT: Reports: No Symptoms Respiratory: Reports: Shortness of Breath, Cough, Sputum. Denies: Wheezing, Pleuritic Chest Pain, Hemoptysis Cardiovascular: Reports: No Symptoms GI/Abdominal: Reports: No Symptoms : Reports: No Symptoms Musculoskeletal: Reports: No Symptoms Skin: Reports: No Symptoms Neurological: Reports: No Symptoms ED EXAM, GENERAL - Physical Exam Exam: See Below Exam Limited By: No Limitations General Appearance: Alert, WD/WN, No Apparent Distress Eye Exam: Bilateral Eye: Normal Inspection Ears: Normal External Exam, Normal Canal, Hearing Grossly Normal, Normal TMs Ear Exam: Bilateral Ear: Auricle Normal, Canal Normal, TM normal Nose: Normal Inspection, Normal Mucosa, No Blood Throat/Mouth: Normal Inspection, Normal Lips, Normal Oropharynx, Normal Voice, No Airway Compromise Head: Atraumatic, Normocephalic Neck: Normal Inspection, Supple Respiratory/Chest: No Respiratory Distress, Lungs Clear, No Accessory Muscle Use , Decreased Breath Sounds Cardiovascular: Regular Rate, Rhythm, No Edema GI/Abdominal: Normal Bowel Sounds, Soft, Non-Tender, No Distention Back Exam: Normal Inspection. No: CVA Tenderness (R), CVA Tenderness (L) Extremities: Normal Inspection, Normal Range of Motion, Non-Tender, No Pedal Edema Neurological: Alert, Oriented, CN II-XII Intact, Normal Cognition, No Motor/ Sensory Deficits Psychiatric: Normal Affect, Normal Mood Skin Exam: Warm, Dry, Intact, Normal Color Lymphatic: No Adenopathy Course - Vital Signs Last Recorded V/S: Last Vital Signs Temp 36.7 C 05/11/18 07:32 Pulse 114 H 05/11/18 08:17 Resp 18 05/11/18 07:32 BP 125/68 05/11/18 07:32 Pulse Ox 95 05/11/18 08:17 - Orders/Labs/Meds Orders: Active Orders 24 hr Category Date Time Status RT Aerosol Therapy [RC] ASDIRECTED Care 05/11/18 08:03 Active Labs: Laboratory Tests 05/11/18 Range/Units 08:03 WBC 7.1 (4.5-11.0) K/uL RBC 5.53 H (3.30-5.50) M/uL Hgb 15.5 H D (12.0-15.0) g/dL Hct 47.7 (36.0-48.0) % MCV 86 (80-98) fL MCH 28 (27-31) pg MCHC 33 (32-36) % Plt Count 329 (150-400) K/uL Meds: Medications Discontinued Medications Generic Name Dose Route Start Last Admin Trade Name Freq PRN Reason Stop Dose Admin Albuterol/Ipratropium 3 ml 05/11/18 08:03 05/11/18 08:15 Duoneb 3.0-0.5 Mg/3 Ml NEB 05/11/18 08:04 3 ml ONETIME ONE Administration Doxycycline Hyclate 100 mg 05/11/18 08:34 Vibramycin PO 05/11/18 08:35 ONETIME ONE Prednisone 20 mg 05/11/18 08:34 Prednisone PO 05/11/18 08:35 ONETIME ONE Departure - Departure Time of Disposition: 08:45 Disposition: Home, Self-Care 01 Condition: Fair Clinical Impression: COPD exacerbation Chronic bronchitis Qualifiers: Chronic bronchitis type: unspecified Qualified Code(s): J42 - Unspecified chronic bronchitis - Discharge Information Prescriptions: Doxycycline Hyclate 100 mg PO BID #14 capsule predniSONE 20 mg PO BID #10 tab Referrals: Carla Swartz PA-C [Primary Care Provider] - Forms: ED Department Discharge - My Orders Last 24 Hours: My Active Orders 05/11/18 08:03 RT Aerosol Therapy [RC] ASDIRECTED - Assessment/Plan Last 24 Hours: My Active Orders 05/11/18 08:03 RT Aerosol Therapy [RC] ASDIRECTED
[2018-05-11] MEDS ORDERED: predniSONE 20 MG Tab PO ONE (08:34)
[2018-05-11] MEDS ORDERED: Doxycycline 100 MG Cap PO ONE (08:34)
== END 2018-05-11 09:05 | disposition home or self-care (01) ==
LOC: JP.ED 07:16
DX: J44.1 Chronic obstructive pulmonary disease with (acute) exacerbation (principal)
CPT/HCPCS: 36415; 85027; 94640; 99285; A9270; J7620

== ENCOUNTER 2018-06-18 16:04 | Emergency (ER) | payer MEDICARE ==
[2018-06-18 16:42] VITALS: BP 120/68
--- NOTE | 2018-06-18 16:57 | EDM.PDOC ---
ED HPI GENERAL MEDICAL PROBLEM - General Chief Complaint: Respiratory Problem Stated Complaint: SOB Time Seen by Provider: 06/18/18 16:50 Source of Information: Reports: Patient, Old Records, RN History Limitations: Reports: Other (poor historian, doesn't know her meds) - History of Present Illness INITIAL COMMENTS - FREE TEXT/NARRATIVE: 73 yo female with end stage lung dz had a Chest CT 3 d ago to follow up on weight loss and chronic worsening SOB. When she was here earlier this month she was still smoking 4 cigarettes/day. Was started on Levaquin 4 d ago for a 7 d course, is not getting better, but did not let her provider know that she wasn't improving. No fever. Onset: Gradual (since finishing her prednisone started on the of this month. 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) (on Levaquin x 4 days) Back Pain Score (Numeric/FACES): 2 - Related Data Allergies Allergy/AdvReac Type Severity Reaction Status Date / Time amoxicillin [Amoxicillin] Allergy Severe Airway Verified 06/02/18 00:49 Tightness Sulfa (Sulfonamide Allergy Rash Verified 06/02/18 00:49 Antibiotics) Home Meds: Home Meds *O2 2 l INH ASDIRECTED 06/02/18 [History] Albuterol [Ventolin HFA] 8 gm IH Q4H PRN 06/02/18 [History] Ipratropium/Albuterol Sulfate [Iprat-Albut 0.5-3(2.5) MG/3 ML] 1 inhalation PO BID 06/02/18 [History] Budesonide [Pulmicort] 0.25 mg INH ASDIRECTED 06/18/18 [History] Levofloxacin 750 mg PO DAILY 06/18/18 [History] Tiotropium Donna [Spiriva Respimat] 2.5 mcg INH BTNUNITS 06/18/18 [History] predniSONE 20 mg PO BID #10 tab 06/18/18 [Rx] Past Medical History HEENT History: Reports: Impaired Vision Cardiovascular History: Reports: Heart Murmur Other Cardiovascular History: stenosis Respiratory History: Reports: Bronchitis, Recurrent, 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: Musculoskeletal History: Reports: Back Pain, Chronic, Fibromyalgia, Osteoarthritis Dermatologic History: Reports: Psoriasis - Infectious Disease History Infectious Disease History: Reports: Chicken Pox, Measles, Mumps - Past Surgical History GI Surgical History: Reports: Cholecystectomy Neurological Surgical History: Reports: None Musculoskeletal Surgical History: Reports: None Social & Family History - Family History Family Medical History: Unobtainable - Caffeine Use Caffeine Use: Reports: Coffee - Living Situation & Occupation Living situation: Reports: , Alone Occupation: Retired (Lives alone in [facility]. Has 5 children 3 live in the area.) ED ROS GENERAL - Review of Systems Review Of Systems: See Below Constitutional: Reports: No Symptoms HEENT: Reports: No Symptoms Respiratory: Reports: Shortness of Breath, Wheezing Cardiovascular: Reports: No Symptoms GI/Abdominal: Reports: No Symptoms : Reports: No Symptoms Musculoskeletal: Reports: No Symptoms Skin: Reports: No Symptoms ED EXAM, GENERAL - Physical Exam Exam: See Below Exam Limited By: No Limitations General Appearance: Alert, WD/WN, No Apparent Distress, Thin Eye Exam: Bilateral Eye: Normal Inspection Ears: Normal External Exam, Normal Canal, Hearing Grossly Normal Ear Exam: Bilateral Ear: Auricle Normal, Canal Normal Nose: Normal Inspection, Normal Mucosa, No Blood Throat/Mouth: Normal Inspection, Normal Lips, Normal Oropharynx, Normal Voice, No Airway Compromise Head: Atraumatic, Normocephalic Neck: Normal Inspection, Supple Respiratory/Chest: Decreased Breath Sounds, Wheezing Cardiovascular: Regular Rate, Rhythm Back Exam: Normal Inspection Extremities: Normal Inspection, Normal Range of Motion, Non-Tender, No Pedal Edema Neurological: Alert, Oriented, CN II-XII Intact, Normal Cognition, No Motor/ Sensory Deficits Psychiatric: Normal Affect, Normal Mood Skin Exam: Warm, Dry, Intact, Normal Color, No Rash Course - Vital Signs Last Recorded V/S: Last Vital Signs Temp 36.8 C 06/18/18 16:51 Pulse 95 06/18/18 16:51 Resp 16 06/18/18 16:51 BP 120/68 06/18/18 16:51 Pulse Ox 90 L 06/18/18 16:51 - Orders/Labs/Meds Orders: Active Orders 24 hr Category Date Time Status RT Aerosol Therapy [RC] ASDIRECTED Care 06/18/18 17:09 Active Meds: Medications Discontinued Medications Generic Name Dose Route Start Last Admin Trade Name Randi PRN Reason Stop Dose Admin Albuterol 2.5 mg 06/18/18 17:08 06/18/18 17:18 Proventil Neb Soln NEB 06/18/18 17:09 2.5 mg ONETIME ONE Administration Prednisone 20 mg 06/18/18 17:09 06/18/18 17:18 Prednisone PO 06/18/18 17:10 20 mg ONETIME ONE Administration Departure - Departure Time of Disposition: 17:30 Disposition: Home, Self-Care 01 Condition: Fair Clinical Impression: Acute exacerbation of chronic obstructive airways disease - Discharge Information *PRESCRIPTION DRUG MONITORING PROGRAM REVIEWED*: Not Applicable *COPY OF PRESCRIPTION DRUG MONITORING REPORT IN PATIENT LEO: Not Applicable Prescriptions: predniSONE 20 mg PO BID #10 tab Instructions: Steps to Quit Smoking, [id number] Referrals: Carla Swartz PA-C [Primary Care Provider] - Forms: ED Department Discharge Additional Instructions: Take prednisone as directed. Continue and finish your Levaquin. NO SMOKING. You need to communicate more with your provider, if you get a new treatment ask when you are to return. If you get worse you need to let your provider know this. We do not have an accurate list of your medications, so the next time you are in the clinic have them write them down and how often you use them. Carry this with you at all times so that if you do end up in an ER we/they can take better care of you. - My Orders Last 24 Hours: My Active Orders 06/18/18 17:09 RT Aerosol Therapy [RC] ASDIRECTED - Assessment/Plan Last 24 Hours: My Active Orders 06/18/18 17:09 RT Aerosol Therapy [RC] ASDIRECTED
[2018-06-18] MEDS ORDERED: Albuterol 0.083% 2.5 MG/3 ML Neb Soln NEB ONE (17:08)
[2018-06-18] MEDS ORDERED: predniSONE 20 MG Tab PO ONE (17:09)
== END 2018-06-18 17:45 | disposition home or self-care (01) ==
LOC: JP.ED 16:04
DX: J44.1 Chronic obstructive pulmonary disease with (acute) exacerbation (principal); Z79.899 Other long term (current) drug therapy; Z88.1 Allergy status to other antibiotic agents; Z88.2 Allergy status to sulfonamides
CPT/HCPCS: 99285; A9270

== ENCOUNTER 2020-06-11 19:09 | Inpatient (IN) | payer MEDICARE ==
[2020-06-11] MEDS ORDERED: Albuterol/Ipratropium 3.0-0.5 MG/3 ML Neb Soln NEB ONE ×2 (19:30→21:12)
[2020-06-11] MEDS ORDERED: Sodium Chloride 0.9% 10 ML Syringe FLUSH PRN (19:30)
--- NOTE | 2020-06-11 19:31 | EDM.PDOC ---
ED HPI GENERAL MEDICAL PROBLEM - General Chief Complaint: Respiratory Problem Stated Complaint: [facility] Time Seen by Provider: 06/11/20 19:22 Source of Information: Reports: Patient, EMS History Limitations: Reports: No Limitations - History of Present Illness INITIAL COMMENTS - FREE TEXT/NARRATIVE: Patient presents by ambulance complaining of worsening shortness of breath over the last several days but overall decline in her general health and constitution for the last couple of weeks. She was seen in the clinic approximately 10 to 14 days ago and after that visit a CT scan of the chest was ordered. According to the patient she was told that her left lung is completely consolidated and there is apparently bronchoscopy upcoming to assess this further. In the last few days she has had only brief relief from inhaled medications at home. She has chronic back pain which has been worse also over the last couple of weeks although there is nothing prescription that she takes. She states that she has been consuming large amounts of ibuprofen trying to keep the head of her pain. Because of continued discomfort, she called the ambulance tonight. 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: Breathing Treatments, NSAIDS - Related Data Allergies Allergy/AdvReac Type Severity Reaction Status Date / Time amoxicillin [Amoxicillin] Allergy Severe Airway Verified 06/11/20 19:27 Tightness Sulfa (Sulfonamide Allergy Rash Verified 06/11/20 19:27 Antibiotics) Home Meds: Home Meds *O2 2 l INH ASDIRECTED 06/02/18 [History] Albuterol [Ventolin HFA] 8 gm IH Q4H PRN 06/02/18 [History] Ipratropium/Albuterol Sulfate [Iprat-Albut 0.5-3(2.5) MG/3 ML] 1 inhalation PO BID 06/02/18 [History] Fluticasone/Umeclidin/Vilanter [Trelegy Ellipta 100-62.5-25] 1 puff IN ASDIRECTED 06/11/20 [History] Past Medical History HEENT History: Reports: Impaired Vision Cardiovascular History: Reports: Heart Murmur Other Cardiovascular History: stenosis Respiratory History: Reports: Bronchitis, Recurrent, COPD 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: Musculoskeletal History: Reports: Back Pain, Chronic, Fibromyalgia, Osteoarthritis Dermatologic History: Reports: Psoriasis - Infectious Disease History Infectious Disease History: Reports: Chicken Pox, Measles, Mumps - Past Surgical History GI Surgical History: Reports: Cholecystectomy Neurological Surgical History: Reports: None Musculoskeletal Surgical History: Reports: None Social & Family History - Family History Family Medical History: Unobtainable - Caffeine Use Caffeine Use: Reports: Coffee - Living Situation & Occupation Living situation: Reports: , Alone Occupation: Retired (Lives alone in [facility]. Has 5 children 3 live in the area.) ED ROS GENERAL - Review of Systems Review Of Systems: See Below Constitutional: Reports: Malaise, Weakness, Decreased Appetite. Denies: Diaphoresis HEENT: Reports: No Symptoms Respiratory: Reports: Shortness of Breath, Wheezing. Denies: Cough, Hemoptysis Cardiovascular: Reports: Dyspnea on Exertion GI/Abdominal: Reports: No Symptoms : Reports: No Symptoms Musculoskeletal: Reports: Back Pain ED EXAM, GENERAL - Physical Exam Exam: See Below Free Text/Narrative:: This is an adult female interviewed on the cart in room 10. She is wearing nasal oxygen and is showing pursed-lipped breathing. She can only answer questions in 2 or 3 word phrases. Exam Limited By: No Limitations General Appearance: Moderate Distress Nose: Normal Inspection Throat/Mouth: Normal Inspection Head: Atraumatic Respiratory/Chest: Respiratory Distress, Decreased Breath Sounds, Wheezing Cardiovascular: Regular Rate, Rhythm, Extra Beats GI/Abdominal: Soft, Non-Tender Back Exam: Muscle Spasm, Vertebral Tenderness Extremities: Normal Range of Motion Psychiatric: Other (Pleasantly irritable.) EKG INTERPRETATION EKG Date: 06/11/20 Time: 19:41 Rhythm: NSR Bennett: LAD-Left Bennett Deviation P-Wave: Present QRS: Normal ST-T: Elevated QT: Normal Comparison: No Change EKG Interpretation Comments: EKG today appears similar to previous EKG from March 2018. Course - Vital Signs Last Recorded V/S: Last Vital Signs Temp 36.2 C 06/11/20 19:34 Pulse 92 06/11/20 20:45 Resp 28 H 06/11/20 20:45 BP 113/67 06/11/20 20:45 Pulse Ox 95 06/11/20 20:45 - Orders/Labs/Meds Orders: Active Orders 24 hr Category Date Time Status EKG Documentation Completion [RC] ASDIRECTED Care 06/11/20 19:28 Ordered RT Aerosol Therapy [RC] ASDIRECTED Care 06/11/20 19:30 Ordered RT Aerosol Therapy [RC] ASDIRECTED Care 06/11/20 21:12 Ordered Chest 1V Frontal [CR] Stat Exams 06/11/20 19:29 Ordered CORONAVIRUS COVID-19, KATIE Stat Lab 06/11/20 19:26 Ordered Sodium Chloride 0.9% [Saline Flush] Med 06/11/20 19:30 Ordered 10 ml FLUSH ASDIRECTED PRN Saline Lock Insert [OM.PC] Routine Oth 06/11/20 19:30 Ordered EKG 12 Lead [EK] Routine Ther 06/11/20 19:26 Ordered Medication Orders Sodium Chloride (Saline Flush) 10 ml FLUSH ASDIRECTED PRN PRN Reason: Keep Vein Open Last Admin: 06/11/20 19:53 Dose: 10 ml Documented by: Labs: Laboratory Tests 06/11/20 06/11/20 06/11/20 Range/Units 19:43 19:43 19:43 WBC 13.3 H (4.5-11.0) K/uL RBC 4.62 (3.30-5.50) M/uL Hgb 12.1 (12.0-15.0) g/dL Hct 39.6 (36.0-48.0) % MCV 86 (80-98) fL MCH 26 L (27-31) pg MCHC 31 L (32-36) % Plt Count 310 (150-400) K/uL Neut % (Auto) 65 (36-66) % Lymph % (Auto) 17 L (24-44) % Moody % (Auto) 12 H (2-6) % Eos % (Auto) 5 H (2-4) % Baso % (Auto) 1 (0-1) % Puncture Site ABG pH (7.350-7.450) ABG pCO2 (35.0-42.0) mmHg ABG pO2 (75.0-100.0) mmHg ABG HCO3 (22.0-26.0) mmol/L ABG Total CO2 (21.0-25.0) mmol/L ABG O2 Saturation (95.0-98.0) % ABG O2 Content (15.0-23.0) %vol ABG Base Excess mm/L ABG Hemoglobin (12.0-16.0) g/dL ABG Oxyhemoglobin % ABG Carboxyhemoglobin (0.0-1.6) % ABG Methemoglobin % Emmanuel Test O2 Delivery Device Oxygen Flow Rate L Sodium 142 (140-148) mmol/L Potassium 4.2 (3.6-5.2) mmol/L Chloride 105 (100-108) mmol/L Carbon Dioxide 28 (21-32) mmol/L Anion Gap 8.9 (5.0-14.0) mmol/L BUN 21 H D (7-18) mg/dL Creatinine 0.8 (0.6-1.0) mg/dL Est Cr Clr Drug Dosing 37.95 mL/min Estimated GFR (MDRD) > 60 (>60) Glucose 96 (74-106) mg/dL Calcium 9.0 (8.5-10.1) mg/dL Total Bilirubin 0.3 (0.2-1.0) mg/dL AST 17 (15-37) U/L ALT 15 (12-78) U/L Alkaline Phosphatase 93 (46-116) U/L Troponin I 0.068 H* (0.000-0.056) ng/mL C-Reactive Protein 3.99 H (0.0-0.3) mg/dL Total Protein 6.6 (6.4-8.2) g/dL Albumin 3.0 L (3.4-5.0) g/dL Globulin 3.6 H (2.3-3.5) g/dL Albumin/Globulin Ratio 0.8 L (1.2-2.2) 06/11/20 Range/Units 21:11 WBC (4.5-11.0) K/uL RBC (3.30-5.50) M/uL Hgb (12.0-15.0) g/dL Hct (36.0-48.0) % MCV (80-98) fL MCH (27-31) pg MCHC (32-36) % Plt Count (150-400) K/uL Neut % (Auto) (36-66) % Lymph % (Auto) (24-44) % Moody % (Auto) (2-6) % Eos % (Auto) (2-4) % Baso % (Auto) (0-1) % Puncture Site Rt.radial ABG pH 7.416 (7.350-7.450) ABG pCO2 42.0 (35.0-42.0) mmHg ABG pO2 70.7 L (75.0-100.0) mmHg ABG HCO3 26.5 H (22.0-26.0) mmol/L ABG Total CO2 23.8 (21.0-25.0) mmol/L ABG O2 Saturation 93.8 L (95.0-98.0) % ABG O2 Content 15.8 (15.0-23.0) %vol ABG Base Excess 2.2 mm/L ABG Hemoglobin 12.4 (12.0-16.0) g/dL ABG Oxyhemoglobin 90.5 % ABG Carboxyhemoglobin 2.8 H (0.0-1.6) % ABG Methemoglobin 0.7 % Emmanuel Test Passed O2 Delivery Device Nasal cannula Oxygen Flow Rate 2.0 L Sodium (140-148) mmol/L Potassium (3.6-5.2) mmol/L Chloride (100-108) mmol/L Carbon Dioxide (21-32) mmol/L Anion Gap (5.0-14.0) mmol/L BUN (7-18) mg/dL Creatinine (0.6-1.0) mg/dL Est Cr Clr Drug Dosing mL/min Estimated GFR (MDRD) (>60) Glucose (74-106) mg/dL Calcium (8.5-10.1) mg/dL Total Bilirubin (0.2-1.0) mg/dL AST (15-37) U/L ALT (12-78) U/L Alkaline Phosphatase (46-116) U/L Troponin I (0.000-0.056) ng/mL C-Reactive Protein (0.0-0.3) mg/dL Total Protein (6.4-8.2) g/dL Albumin (3.4-5.0) g/dL Globulin (2.3-3.5) g/dL Albumin/Globulin Ratio (1.2-2.2) Meds: Medications Generic Name Dose Route Start Last Admin Trade Name Freq PRN Reason Stop Dose Admin Sodium Chloride 10 ml 06/11/20 19:30 06/11/20 19:53 Saline Flush FLUSH 10 ml ASDIRECTED PRN Administration Keep Vein Open Discontinued Medications Generic Name Dose Route Start Last Admin Trade Name Randi PRN Reason Stop Dose Admin Albuterol/Ipratropium 3 ml 06/11/20 19:30 06/11/20 19:43 Duoneb 3.0-0.5 Mg/3 Ml NEB 06/11/20 19:31 3 ml ONETIME ONE Administration Albuterol/Ipratropium 3 ml 06/11/20 21:12 06/11/20 21:24 Duoneb 3.0-0.5 Mg/3 Ml NEB 06/11/20 21:13 3 ml ONETIME ONE Administration Methylprednisolone Sodium Succinate 125 mg 06/11/20 21:12 06/11/20 21:18 Solu-Medrol IVPUSH 06/11/20 21:13 125 mg ONETIME ONE Administration Morphine Sulfate 2 mg 06/11/20 19:42 06/11/20 19:52 Morphine IVPUSH 06/11/20 19:43 2 mg ONETIME ONE Administration Ondansetron HCl 4 mg 06/11/20 20:00 06/11/20 20:07 Zofran IVPUSH 06/11/20 20:01 4 mg ONETIME ONE Administration - Re-Assessments/Exams Free Text/Narrative Re-Assessment/Exam: 06/11/20 19:42 Patient will receive DuoNeb treatments. I will give her morphine 2 mg IV and see what it does for her back discomfort but also her breathing. I asked the patient if she has been in the hospital this year and she stated no. I told her she might have to be depending on what we find today and her response to treatment. She is hoping she will be able to go home! 06/11/20 19:43 06/11/20 21:23 I returned later to review test results. Her chest x-ray shows some hyperinflation and basal lung infiltrates acute versus chronic. Review of her CT scan from May 30 shows that there was concern for pneumonia in the bases of each lung and she had moderate emphysematous changes with large bulla present on the CT. She improved somewhat with a DuoNeb treatment but she still has bilateral wheezing. Her work of breathing is somewhat decreased partly from the DuoNeb and I suspect partly from the low-dose morphine. I discussed with her that she needs to be a get this under control and she stated that 1 month ago she felt substantially different as an better than she did now. She cannot walk from her chair to her bathroom without getting short of breath. I reviewed her case with hospitalist service to arrange admission and further care. I also discussed that her troponin is slightly elevated which could be related to her difficult work of breathing but also could be an early sign of cardiac ischemia. She understands the principles involved in her care tonight. We will check her ABG, give her 125 mg of Solu-Medrol and get a COVID swab as well. 06/11/20 21:28 Departure - Departure Time of Disposition: 21:17 Disposition: Admitted As Inpatient 64 Condition: Fair Clinical Impression: COPD exacerbation, Troponin I above reference range Pneumonia Qualifiers: Pneumonia type: due to unspecified organism Laterality: bilateral Lung location: lower lobe of lung Qualified Code(s): J18.9 - Pneumonia, unspecified organism - Discharge Information Referrals: Carla Swartz PA-C [Primary Care Provider] - Forms: ED Department Discharge Sepsis Event Note (ED) - Focused Exam Vital Signs: Vital Signs Temp Pulse Resp BP Pulse Ox 06/11/20 20:45 92 28 H 113/67 95 06/11/20 20:15 89 22 H 130/70 92 L 06/11/20 19:57 91 06/11/20 19:45 91 33 H 115/82 99 06/11/20 19:34 36.2 C 61 26 H 143/95 H 96 06/11/20 19:20 94 18 116/79 06/11/20 19:18 36.2 C 61 26 H 143/95 H 96 - My Orders Last 24 Hours: My Active Orders 06/11/20 19:26 CORONAVIRUS COVID-19, KATIE Stat EKG 12 Lead [EK] Routine 06/11/20 19:28 EKG Documentation Completion [RC] ASDIRECTED 06/11/20 19:29 Chest 1V Frontal [CR] Stat 06/11/20 19:30 RT Aerosol Therapy [RC] ASDIRECTED Sodium Chloride 0.9% [Saline Flush] 10 ml FLUSH ASDIRECTED PRN Saline Lock Insert [OM.PC] Routine 06/11/20 21:12 RT Aerosol Therapy [RC] ASDIRECTED - Assessment/Plan Last 24 Hours: My Active Orders 06/11/20 19:26 CORONAVIRUS COVID-19, KATIE Stat EKG 12 Lead [EK] Routine 06/11/20 19:28 EKG Documentation Completion [RC] ASDIRECTED 06/11/20 19:29 Chest 1V Frontal [CR] Stat 06/11/20 19:30 RT Aerosol Therapy [RC] ASDIRECTED Sodium Chloride 0.9% [Saline Flush] 10 ml FLUSH ASDIRECTED PRN Saline Lock Insert [OM.PC] Routine 06/11/20 21:12 RT Aerosol Therapy [RC] ASDIRECTED
[2020-06-11] MEDS ORDERED: Morphine 2 MG/ML SYRINGE IVPUSH ONE (19:42)
[2020-06-11] MEDS ORDERED: Ondansetron 4 MG/2 ML SDV IVPUSH ONE (20:00)
[2020-06-11] MEDS ORDERED: methylPREDNISolone Sodium Succinate 125 MG/2 ML SDV IVPUSH ONE (21:12)
[2020-06-11] MEDS ORDERED: Ondansetron 4 MG Tab.DIS PO PRN (23:56)
[2020-06-11] MEDS ORDERED: Morphine 2 MG/ML SYRINGE IVPUSH PRN (23:56)
[2020-06-11] MEDS ORDERED: Acetaminophen 325 MG Tab PO PRN (23:56)
[2020-06-11] MEDS ORDERED: Albuterol 0.083% 2.5 MG/3 ML Neb Soln NEB PRN (23:56)
[2020-06-11] MEDS ORDERED: LORazepam 2 MG/ML SDV IV PRN (23:56)
[2020-06-11] MEDS ORDERED: Docusate Sodium 100 MG Cap PO PRN (23:56)
[2020-06-11] MEDS ORDERED: O2 INH SCH (23:56)
[2020-06-11] MEDS ORDERED: Sodium Chloride 0.9% 1,000 ML IV SCH (23:56)
--- NOTE | 2020-06-12 00:15 | PCM.HP.2 ---
H&P History of Present Illness - General Date of Service: 06/11/20 Admit Problem/Dx: Admission Diagnosis/Problem Admission Diagnosis/Problem COPD, Severe chronic obstructive pulmonary disease Source of Information: Patient, Provider, RN History Limitations: Reports: No Limitations - History of Present Illness Initial Comments - Free Text/Narative: chief complaint: shortness of breath presents by ambulance complaining of worsening shortness of breath over the last several days but overall decline in her general health and constitution for the last couple of weeks. She was seen in the clinic approximately 10 to 14 days ago and after that visit a CT scan of the chest was ordered. According to the patient she was told that her left lung is completely consolidated and there is apparently bronchoscopy upcoming to assess this further. In the last few days she has had only brief relief from inhaled medications at home. She has chronic back pain which has been worse also over the last couple of weeks although there is nothing prescription that she takes. She states that she has been consuming large amounts of ibuprofen trying to keep the head of her pain. Because of continued discomfort, she called the ambulance jay Onset of Symptoms: Reports: Gradual Duration of Symptoms: Reports: Day(s):, Getting Worse Location: Reports: Chest, Generalized (fatigue) Quality: Reports: Same as Previous Episode Severity: Severe Improves with: Reports: None Worsens with: Reports: Movement Associated Symptoms: Reports: Cough, Loss of Appetite, Shortness of Breath, Weakness Left Lower Chest Pain Score (Numeric/FACES): 4 - Related Data Allergies/Adverse Reactions: Allergies Allergy/AdvReac Type Severity Reaction Status Date / Time amoxicillin [Amoxicillin] Allergy Severe Airway Verified 06/11/20 19:27 Tightness Sulfa (Sulfonamide Allergy Rash Verified 06/11/20 19:27 Antibiotics) Home Medications: Home Meds *O2 2 l INH ASDIRECTED 06/02/18 [History] Albuterol [Ventolin HFA] 8 gm IH Q4H PRN 06/02/18 [History] Ipratropium/Albuterol Sulfate [Iprat-Albut 0.5-3(2.5) MG/3 ML] 1 inhalation PO BID 06/02/18 [History] Fluticasone/Umeclidin/Vilanter [Trelegy Ellipta 100-62.5-25] 1 puff IN ASDIRECTED 06/11/20 [History] Past Medical History HEENT History: Reports: Impaired Vision Cardiovascular History: Reports: Heart Murmur Other Cardiovascular History: stenosis Respiratory History: Reports: Bronchitis, Recurrent, COPD Other Respiratory History: left lung consolidation 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: Musculoskeletal History: Reports: Back Pain, Chronic, Fibromyalgia, Osteoarthritis Psychiatric History: Reports: Addiction Dermatologic History: Reports: Psoriasis - Infectious Disease History Infectious Disease History: Reports: Chicken Pox, Measles, Mumps - Past Surgical History GI Surgical History: Reports: Cholecystectomy Neurological Surgical History: Reports: None Musculoskeletal Surgical History: Reports: None Social & Family History - Family History Family Medical History: Unobtainable - Tobacco Use Smoking Status *Q: Current Every Day Smoker Years of Tobacco use: 65 Packs/Tins Daily: 0.2 - Caffeine Use Caffeine Use: Reports: Coffee Caffeine Use Comment: "lots" - Recreational Drug Use Recreational Drug Use: No - Living Situation & Occupation Living situation: Reports: , Alone Occupation: Retired (Lives alone in [facility]. Has 5 children 3 live in the area.) H&P Review of Systems - Review of Systems: Review Of Systems: See Below General: Reports: Weakness, Fatigue, Decreased Appetite HEENT: Reports: Glasses Pulmonary: Reports: Shortness of Breath, Wheezing, Pleuritic Chest Pain, Cough, Sputum Cardiovascular: Reports: No Symptoms Gastrointestinal: Reports: No Symptoms Genitourinary: Reports: No Symptoms Musculoskeletal: Reports: No Symptoms Skin: Reports: No Symptoms Psychiatric: Reports: No Symptoms Neurological: Reports: No Symptoms Hematologic/Lymphatic: Reports: No Symptoms Immunologic: Reports: No Symptoms Exam - Exam Exam: See Below - Vital Signs Vital Signs: Last Vital Signs Temp 36.2 C 06/11/20 19:34 Pulse 92 06/11/20 21:45 Resp 25 H 06/11/20 21:45 BP 125/65 06/11/20 21:45 Pulse Ox 100 06/11/20 21:45 Weight: 40.823 kg - Exam Quality Assessment: Supplemental Oxygen, DVT Prophylaxis General: Alert, Oriented, Cooperative, Mild Distress HEENT: PERRLA, Hearing Intact, Mucosa Moist & [place], Nares Patent, Normal Nasal Septum, Posterior Pharynx Clear, Conjunctiva Clear, EOMI, EACs Clear, TMs Clear Neck: Supple, Trachea Midline, 2 Lungs: Decreased Breath Sounds, Crackles, Wheezing Cardiovascular: Regular Rate, Regular Rhythm, Normal S1, Normal S2 GI/Abdominal Exam: Normal Bowel Sounds, Soft, Non-Tender, No Organomegaly, No Distention, No Abnormal Bruit, No Mass, Pelvis Stable (Female) Exam: Deferred Rectal (Female) Exam: Deferred Back Exam: Normal Inspection, Full Range of Motion, NT Extremities: Normal Inspection, Normal Range of Motion, Non-Tender, No Pedal Edema, Normal Capillary Refill Peripheral Pulses: 2+: Radial (L), Radial (R), Dorsalis Pedis (L), Dorsalis Pedis (R) Skin: Warm, Dry, Intact Neurological: Cranial Nerves Intact, Reflexes Equal Bilateral Neuro Extensive - Mental Status: Alert, Oriented x3, Normal Mood/Affect, Normal Cognition Neuro Extensive - Motor, Sensory, Reflexes: CN II-XII Intact, Normal Gait, Normal Reflexes Psychiatric: Alert, Normal Affect, Normal Mood - Patient Data Lab Results Last 24 hrs: Laboratory Results - last 24 hr 06/11/20 06/11/20 06/11/20 Range/Units 19:43 19:43 19:43 WBC 13.3 H (4.5-11.0) K/uL RBC 4.62 (3.30-5.50) M/uL Hgb 12.1 (12.0-15.0) g/dL Hct 39.6 (36.0-48.0) % MCV 86 (80-98) fL MCH 26 L (27-31) pg MCHC 31 L (32-36) % Plt Count 310 (150-400) K/uL Neut % (Auto) 65 (36-66) % Lymph % (Auto) 17 L (24-44) % [place] % (Auto) 12 H (2-6) % Eos % (Auto) 5 H (2-4) % Baso % (Auto) 1 (0-1) % Puncture Site ABG pH (7.350-7.450) ABG pCO2 (35.0-42.0) mmHg ABG pO2 (75.0-100.0) mmHg ABG HCO3 (22.0-26.0) mmol/L ABG Total CO2 (21.0-25.0) mmol/L ABG O2 Saturation (95.0-98.0) % ABG O2 Content (15.0-23.0) %vol ABG Base Excess mm/L ABG Hemoglobin (12.0-16.0) g/dL ABG Oxyhemoglobin % ABG Carboxyhemoglobin (0.0-1.6) % ABG Methemoglobin % Emmanuel Test O2 Delivery Device Oxygen Flow Rate L Sodium 142 (140-148) mmol/L Potassium 4.2 (3.6-5.2) mmol/L Chloride 105 (100-108) mmol/L Carbon Dioxide 28 (21-32) mmol/L Anion Gap 8.9 (5.0-14.0) mmol/L BUN 21 H D (7-18) mg/dL Creatinine 0.8 (0.6-1.0) mg/dL Est Cr Clr Drug Dosing 37.95 mL/min Estimated GFR (MDRD) > 60 (>60) Glucose 96 (74-106) mg/dL Calcium 9.0 (8.5-10.1) mg/dL Total Bilirubin 0.3 (0.2-1.0) mg/dL AST 17 (15-37) U/L ALT 15 (12-78) U/L Alkaline Phosphatase 93 (46-116) U/L Troponin I 0.068 H* (0.000-0.056) ng/mL C-Reactive Protein 3.99 H (0.0-0.3) mg/dL Total Protein 6.6 (6.4-8.2) g/dL Albumin 3.0 L (3.4-5.0) g/dL Globulin 3.6 H (2.3-3.5) g/dL Albumin/Globulin Ratio 0.8 L (1.2-2.2) SARS Virus RNA (PCR) (NEGATIVE) 06/11/20 06/11/20 Range/Units 21:11 21:34 WBC (4.5-11.0) K/uL RBC (3.30-5.50) M/uL Hgb (12.0-15.0) g/dL Hct (36.0-48.0) % MCV (80-98) fL MCH (27-31) pg MCHC (32-36) % Plt Count (150-400) K/uL Neut % (Auto) (36-66) % Lymph % (Auto) (24-44) % [place] % (Auto) (2-6) % Eos % (Auto) (2-4) % Baso % (Auto) (0-1) % Puncture Site Rt.radial ABG pH 7.416 (7.350-7.450) ABG pCO2 42.0 (35.0-42.0) mmHg ABG pO2 70.7 L (75.0-100.0) mmHg ABG HCO3 26.5 H (22.0-26.0) mmol/L ABG Total CO2 23.8 (21.0-25.0) mmol/L ABG O2 Saturation 93.8 L (95.0-98.0) % ABG O2 Content 15.8 (15.0-23.0) %vol ABG Base Excess 2.2 mm/L ABG Hemoglobin 12.4 (12.0-16.0) g/dL ABG Oxyhemoglobin 90.5 % ABG Carboxyhemoglobin 2.8 H (0.0-1.6) % ABG Methemoglobin 0.7 % Emmanuel Test Passed O2 Delivery Device Nasal cannula Oxygen Flow Rate 2.0 L Sodium (140-148) mmol/L Potassium (3.6-5.2) mmol/L Chloride (100-108) mmol/L Carbon Dioxide (21-32) mmol/L Anion Gap (5.0-14.0) mmol/L BUN (7-18) mg/dL Creatinine (0.6-1.0) mg/dL Est Cr Clr Drug Dosing mL/min Estimated GFR (MDRD) (>60) Glucose (74-106) mg/dL Calcium (8.5-10.1) mg/dL Total Bilirubin (0.2-1.0) mg/dL AST (15-37) U/L ALT (12-78) U/L Alkaline Phosphatase (46-116) U/L Troponin I (0.000-0.056) ng/mL C-Reactive Protein (0.0-0.3) mg/dL Total Protein (6.4-8.2) g/dL Albumin (3.4-5.0) g/dL Globulin (2.3-3.5) g/dL Albumin/Globulin Ratio (1.2-2.2) SARS Virus RNA (PCR) Negative (NEGATIVE) Result Diagrams: 06/11/20 19:43 06/11/20 19:43 Sepsis Event Note - Evaluation Sepsis Screening Result: No Definite Risk - Focused Exam Vital Signs: Vital Signs Temp Pulse Resp BP Pulse Ox 06/11/20 21:45 92 25 H 125/65 100 06/11/20 21:15 91 18 132/67 95 06/11/20 20:45 92 28 H 113/67 95 06/11/20 20:15 89 22 H 130/70 92 L 06/11/20 19:57 91 06/11/20 19:45 91 33 H 115/82 99 06/11/20 19:34 36.2 C 61 26 H 143/95 H 96 06/11/20 19:20 94 18 116/79 06/11/20 19:18 36.2 C 61 26 H 143/95 H 96 - Problem List (1) Acute exacerbation of chronic obstructive airways disease SNOMED Code(s): 712371825 ICD Code: J44.1 - CHRONIC OBSTRUCTIVE PULMONARY DISEASE W (ACUTE) EXACERBATION Status: Acute Priority: High Current Visit: Yes (2) Troponin I above reference range SNOMED Code(s): 688857056 ICD Code: R79.89 - OTHER SPECIFIED ABNORMAL FINDINGS OF BLOOD CHEMISTRY Status: Acute Priority: High Current Visit: Yes (3) Tobacco use SNOMED Code(s): 519081684 ICD Code: Z72.0 - TOBACCO USE Status: Chronic Priority: High Current Visit: Yes Problem List Initiated/Reviewed/Updated: Yes Orders Last 24hrs: Active Orders 24 hr Category Date Time Status Cardiac Monitoring [RC] CONTINUOUS Care 06/11/20 23:56 Active Communication Order [RC] ASDIRECTED Care 06/11/20 23:56 Active Intake and Output [RC] QSHIFT Care 06/11/20 23:56 Active Notify Provider Vital Signs [RC] ASDIRECTED Care 06/11/20 23:56 Active Notify Provider [RC] PRN Care 06/11/20 23:56 Active Oxygen Therapy [RC] PRN Care 06/11/20 23:56 Active Pulse Oximetry [RC] CONTINUOUS Care 06/11/20 23:56 Active RT Aerosol Therapy [RC] ASDIRECTED Care 06/11/20 23:56 Active Up ad Perlita [RC] ASDIRECTED Care 06/11/20 23:56 Active VTE/DVT Education [RC] Per Unit Routine Care 06/11/20 23:56 Active Vital Signs [RC] Q4H Care 06/11/20 23:56 Active Regular Diet [DIET] Diet 06/11/20 Breakfast Active Chest 1V Frontal [CR] Stat Exams 06/11/20 19:29 Taken BASIC METABOLIC PANEL,BMP [CHEM] AM Lab 06/12/20 05:11 Ordered CBC WITH AUTO DIFF [HEME] AM Lab 06/12/20 05:11 Ordered TROPONIN I [CHEM] Routine Lab 06/12/20 02:10 Ordered TROPONIN I [CHEM] Routine Lab 06/12/20 08:10 Ordered *O2 Med 06/11/20 23:56 Ordered 2 l INH ASDIRECTED Acetaminophen [Tylenol] Med 06/11/20 23:56 Ordered 650 mg PO Q4H PRN Albuterol [Proventil Neb Soln] Med 06/11/20 23:56 Ordered 2.5 mg NEB Q4H PRN Albuterol/Ipratropium [DuoNeb 3.0-0.5 MG/3 ML] Med 06/12/20 03:10 Ordered 3 ml NEB QID Docusate Sodium [Colace] Med 06/11/20 23:56 Ordered 100 mg PO BID PRN Enoxaparin [Lovenox] Med 06/12/20 09:00 Ordered 30 mg SUBCUT DAILY LORazepam [Ativan] Med 06/11/20 23:56 Ordered 1 mg IV Q6H PRN Montelukast [Singulair] Med 06/12/20 21:00 Ordered 10 mg PO BEDTIME Morphine Med 06/11/20 23:56 Ordered 2 mg IVPUSH Q2H PRN Ondansetron [Zofran ODT] Med 06/11/20 23:56 Ordered 4 mg PO Q6H PRN Pantoprazole [ProTONIX] Med 06/12/20 09:00 Ordered 40 mg PO DAILY Sodium Chloride 0.9% [Normal Saline] 1,000 ml Med 06/11/20 23:56 Ordered IV ASDIRECTED Sodium Chloride 0.9% [Saline Flush] Med 06/11/20 19:30 Active 10 ml FLUSH ASDIRECTED PRN cefTRIAXone [Rocephin] 1 gm Med 06/12/20 00:00 Active Sodium Chloride 0.9% [Normal Saline] 50 ml IV Q24H methylPREDNISolone Sod Succ [Solu-MEDROL] Med 06/12/20 03:10 Ordered 62.5 mg IV Q6H oxyCODONE Med 06/11/20 23:56 Ordered 5 mg PO Q4H PRN Resuscitation Status Routine Resus Stat 06/11/20 23:35 Ordered EKG 12 Lead [EK] Routine Ther 06/11/20 19:26 Stop Req Medication Orders Acetaminophen (Tylenol) 650 mg PO Q4H PRN PRN Reason: Pain (Mild 1-3)/fever Albuterol (Proventil Neb Soln) 2.5 mg NEB Q4H PRN PRN Reason: Shortness Of Breath/wheezing Albuterol/Ipratropium (Duoneb 3.0-0.5 Mg/3 Ml) 3 ml NEB QID RICARDO Docusate Sodium (Colace) 100 mg PO BID PRN PRN Reason: Constipation Enoxaparin Sodium (Lovenox) 30 mg SUBCUT DAILY [facility] Ceftriaxone Sodium 1 gm/ (Sodium Chloride) 50 mls @ 100 mls/hr IV Q24H RICARDO Sodium Chloride (Normal Saline) 1,000 mls @ 75 mls/hr IV ASDIRECTED R[facility] Lorazepam (Ativan) 1 mg IV Q6H PRN PRN Reason: Nausea/Vomiting Methylprednisolone Sodium Succinate (Solu-Medrol) 62.5 mg IV Q6H [facility] Montelukast Sodium (Singulair) 10 mg PO BEDTIME RICARDO Morphine Sulfate (Morphine) 2 mg IVPUSH Q2H PRN PRN Reason: Pain (severe 7-10) Non-Formulary Medication (*O2) 2 l INH ASDIRECTED [facility] Ondansetron HCl (Zofran Odt) 4 mg PO Q6H PRN PRN Reason: Nausea able to take PO Oxycodone HCl (Oxycodone) 5 mg PO Q4H PRN PRN Reason: Pain (moderate 4-6) Pantoprazole Sodium (Protonix) 40 mg PO DAILY [facility] Sodium Chloride (Saline Flush) 10 ml FLUSH ASDIRECTED PRN PRN Reason: Keep Vein Open Last Admin: 06/11/20 19:53 Dose: 10 ml Documented by: ENZO Assessment/Plan Comment:: Assessment/Plan Comment:: ASSESSMENT AND PLAN- COPD EXACERBATION ER Course Patient will receive DuoNeb treatments. I will give her morphine 2 mg IV and see what it does for her back discomfort but also her breathing. I asked the patient if she has been in the hospital this year and she stated no. I told her she might have to be depending on what we find today and her response to treatment. She is hoping she will be able to go home! 06/11/20 19:43 06/11/20 21:23 Her chest x-ray shows some hyperinflation and basal lung infiltrates acute versus chronic. Review of her CT scan from May 30 shows that there was concern for pneumonia in the bases of each lung and she had moderate emphysematous changes with large bulla present on the CT. She improved somewhat with a DuoNeb treatment but she still has bilateral wheezing. Her work of breathing is somewhat decreased partly from the DuoNeb and I suspect partly from the low-dose morphine. I discussed with her that she needs to be a get this un susan control and she stated that 1 month ago she felt substantially different as an better than she did now. She cannot walk from her chair to her bathroom without getting short of breath. I reviewed her case with hospitalist service to arrange admission and further care. I also discussed that her troponin is slightly elevated which could be related to her difficult work of breathing but also could be an early sign of cardiac ischemia. She understands the principles involved in her care tonight. We will check her ABG, give her 125 mg of Solu- Medrol and get a COVID swab as well COPD EXACERBATION - on home oxygen at 2 liter per NC. smoke 6 cigarettes daily. -oxygen at 2 liter per NC -IV fluids for hydration -IV Rocephin 1 gm every 24 hours -IV Solu-Medrol 125mg once then IV 62.5 mg. every 6 hours -Duo-neb scheduled every 6 hours -Albuterol nebs every 4 hours as needed -am lab CBC, BMP Elevated Tropin -Telemetry -labs at 0200 and 0800 Tobacco use -declines patch or gum MAINTENANCE ISSUES -DVT prophylaxis- SCD -GI prophylaxis- Protonix 40 mg daily -Avila catheter- not indicated -Nutrition- regular diet -Nicotine dependence- declines patch CODE STATUS-FULL CODE ADMISSION STATUS-patient will be admitted to inpatient status, expect at least a 2 night hospital stay for evaluation and management of problems as outlined above. At the time of this admission I do not reasonably expected evaluation and management of this problem will require more than a 96 hour hospital stay. DISPOSITION-anticipate discharge to home after the hospital stay. PRIMARY CARE PROVIDER- Carla Swartz [facility] HOSPITALIST- Dr. Ingram - Mortality Measure Prognosis:: Good - Mortality Measure Prognosis:: Good - Mortality Measure Prognosis:: Good
[2020-06-12] MEDS: cefTRIAXone 1 GM in Sodium Chloride 0.9% 50 ML IV SCH ×2 (00:53→23:40)
[2020-06-12] MEDS: methylPREDNISolone Sodium Succinate 125 MG/2 ML SDV IV SCH ×4 (02:15→20:46)
[2020-06-12] MEDS: Albuterol/Ipratropium 3.0-0.5 MG/3 ML Neb Soln NEB SCH ×5 (02:15→20:46)
[2020-06-12] MEDS: Enoxaparin 40 MG/0.4 ML Syringe SUBCUT SCH (08:20)
[2020-06-12] MEDS: Pantoprazole 40 MG Tab.CR PO SCH (08:20)
[2020-06-12] MEDS ORDERED: Pantoprazole 40 MG Tab.CR PO SCH (09:00)
--- NOTE | 2020-06-12 09:53 | CR ---
CHEST: Portable 06/11/2020 at 7:56 PM CLINICAL HISTORY:COPD, dyspnea COMPARISON:05/15/2020 FINDINGS: Lungs are emphysematous. Heart size and pulmonary vascularity are normal. There are atherosclerotic changes in the aorta. There is patchy right infrahilar density. There is patchy bibasal fibrosis. Impression: Changes of COPD Patchy right infrahilar density may represent superimposed pneumonia
[2020-06-12] MEDS: oxyCODONE 5 MG Tab PO PRN (11:28)
--- NOTE | 2020-06-12 13:41 | PCM.PN ---
- General Info Date of Service: 06/12/20 Subjective Update: Ms. Whitten last night with shortness of breath secondary to COPD exacerbation and underlying bronchitis. Already feels somewhat improved with less shortness of breath and cough. Functional Status: Reports: Tolerating Diet, Ambulating, Urinating - Review of Systems General: Reports: Weakness, Fatigue. Denies: Fever, Chills Pulmonary: Reports: Shortness of Breath, Cough. Denies: Pleuritic Chest Pain, Sputum, Hemoptysis, Wheezing Cardiovascular: Reports: Dyspnea on Exertion. Denies: Chest Pain, Palpitations, Orthopnea, PND, Edema, Lightheadedness Gastrointestinal: Reports: No Symptoms - Patient Data Vitals - Most Recent: Last Vital Signs Temp 96.9 F 06/12/20 11:24 Pulse 75 06/12/20 11:24 Resp 16 06/12/20 11:24 BP 103/62 06/12/20 11:24 Pulse Ox 94 L 06/12/20 13:17 Weight - Most Recent: 90 lb I&O - Last 24 Hours: Intake & Output 06/11/20 06/12/20 06/12/20 22:59 06:59 14:59 Intake Total 480 Balance 480 Lab Results Last 24 Hours: Laboratory Results - last 24 hr 06/11/20 06/11/20 06/11/20 Range/Units 19:43 19:43 19:43 WBC 13.3 H (4.5-11.0) K/uL RBC 4.62 (3.30-5.50) M/uL Hgb 12.1 (12.0-15.0) g/dL Hct 39.6 (36.0-48.0) % MCV 86 (80-98) fL MCH 26 L (27-31) pg MCHC 31 L (32-36) % Plt Count 310 (150-400) K/uL Neut % (Auto) 65 (36-66) % Lymph % (Auto) 17 L (24-44) % [place] % (Auto) 12 H (2-6) % Eos % (Auto) 5 H (2-4) % Baso % (Auto) 1 (0-1) % Puncture Site ABG pH (7.350-7.450) ABG pCO2 (35.0-42.0) mmHg ABG pO2 (75.0-100.0) mmHg ABG HCO3 (22.0-26.0) mmol/L ABG Total CO2 (21.0-25.0) mmol/L ABG O2 Saturation (95.0-98.0) % ABG O2 Content (15.0-23.0) %vol ABG Base Excess mm/L ABG Hemoglobin (12.0-16.0) g/dL ABG Oxyhemoglobin % ABG Carboxyhemoglobin (0.0-1.6) % ABG Methemoglobin % Emmanuel Test O2 Delivery Device Oxygen Flow Rate L Sodium 142 (140-148) mmol/L Potassium 4.2 (3.6-5.2) mmol/L Chloride 105 (100-108) mmol/L Carbon Dioxide 28 (21-32) mmol/L Anion Gap 8.9 (5.0-14.0) mmol/L BUN 21 H D (7-18) mg/dL Creatinine 0.8 (0.6-1.0) mg/dL Est Cr Clr Drug Dosing 37.95 mL/min Estimated GFR (MDRD) > 60 (>60) Glucose 96 (74-106) mg/dL Calcium 9.0 (8.5-10.1) mg/dL Total Bilirubin 0.3 (0.2-1.0) mg/dL AST 17 (15-37) U/L ALT 15 (12-78) U/L Alkaline Phosphatase 93 (46-116) U/L Troponin I 0.068 H* (0.000-0.056) ng/mL C-Reactive Protein 3.99 H (0.0-0.3) mg/dL Total Protein 6.6 (6.4-8.2) g/dL Albumin 3.0 L (3.4-5.0) g/dL Globulin 3.6 H (2.3-3.5) g/dL Albumin/Globulin Ratio 0.8 L (1.2-2.2) SARS Virus RNA (PCR) (NEGATIVE) 06/11/20 06/11/20 06/12/20 Range/Units 21:11 21:34 02:10 WBC (4.5-11.0) K/uL RBC (3.30-5.50) M/uL Hgb (12.0-15.0) g/dL Hct (36.0-48.0) % MCV (80-98) fL MCH (27-31) pg MCHC (32-36) % Plt Count (150-400) K/uL Neut % (Auto) (36-66) % Lymph % (Auto) (24-44) % [place] % (Auto) (2-6) % Eos % (Auto) (2-4) % Baso % (Auto) (0-1) % Puncture Site Rt.radial ABG pH 7.416 (7.350-7.450) ABG pCO2 42.0 (35.0-42.0) mmHg ABG pO2 70.7 L (75.0-100.0) mmHg ABG HCO3 26.5 H (22.0-26.0) mmol/L ABG Total CO2 23.8 (21.0-25.0) mmol/L ABG O2 Saturation 93.8 L (95.0-98.0) % ABG O2 Content 15.8 (15.0-23.0) %vol ABG Base Excess 2.2 mm/L ABG Hemoglobin 12.4 (12.0-16.0) g/dL ABG Oxyhemoglobin 90.5 % ABG Carboxyhemoglobin 2.8 H (0.0-1.6) % ABG Methemoglobin 0.7 % Emmanuel Test Passed O2 Delivery Device Nasal cannula Oxygen Flow Rate 2.0 L Sodium (140-148) mmol/L Potassium (3.6-5.2) mmol/L Chloride (100-108) mmol/L Carbon Dioxide (21-32) mmol/L Anion Gap (5.0-14.0) mmol/L BUN (7-18) mg/dL Creatinine (0.6-1.0) mg/dL Est Cr Clr Drug Dosing mL/min Estimated GFR (MDRD) (>60) Glucose (74-106) mg/dL Calcium (8.5-10.1) mg/dL Total Bilirubin (0.2-1.0) mg/dL AST (15-37) U/L ALT (12-78) U/L Alkaline Phosphatase (46-116) U/L Troponin I 0.076 H* (0.000-0.056) ng/mL C-Reactive Protein (0.0-0.3) mg/dL Total Protein (6.4-8.2) g/dL Albumin (3.4-5.0) g/dL Globulin (2.3-3.5) g/dL Albumin/Globulin Ratio (1.2-2.2) SARS Virus RNA (PCR) Negative (NEGATIVE) 06/12/20 06/12/20 06/12/20 Range/Units 08:23 08:23 08:23 WBC 6.7 (4.5-11.0) K/uL RBC 4.43 (3.30-5.50) M/uL Hgb 11.7 L (12.0-15.0) g/dL Hct 38.0 (36.0-48.0) % MCV 86 (80-98) fL MCH 26 L (27-31) pg MCHC 31 L (32-36) % Plt Count 294 (150-400) K/uL Neut % (Auto) 84 H (36-66) % Lymph % (Auto) 14 L (24-44) % [place] % (Auto) 2 (2-6) % Eos % (Auto) 0 L (2-4) % Baso % (Auto) 0 (0-1) % Puncture Site ABG pH (7.350-7.450) ABG pCO2 (35.0-42.0) mmHg ABG pO2 (75.0-100.0) mmHg ABG HCO3 (22.0-26.0) mmol/L ABG Total CO2 (21.0-25.0) mmol/L ABG O2 Saturation (95.0-98.0) % ABG O2 Content (15.0-23.0) %vol ABG Base Excess mm/L ABG Hemoglobin (12.0-16.0) g/dL ABG Oxyhemoglobin % ABG Carboxyhemoglobin (0.0-1.6) % ABG Methemoglobin % Emmanuel Test O2 Delivery Device Oxygen Flow Rate L Sodium 139 L (140-148) mmol/L Potassium 4.3 (3.6-5.2) mmol/L Chloride 103 (100-108) mmol/L Carbon Dioxide 27 (21-32) mmol/L Anion Gap 13.3 (5.0-14.0) mmol/L BUN 23 H (7-18) mg/dL Creatinine 0.7 (0.6-1.0) mg/dL Est Cr Clr Drug Dosing 43.37 mL/min Estimated GFR (MDRD) > 60 (>60) Glucose 144 H (74-106) mg/dL Calcium 8.5 (8.5-10.1) mg/dL Total Bilirubin (0.2-1.0) mg/dL AST (15-37) U/L ALT (12-78) U/L Alkaline Phosphatase (46-116) U/L Troponin I 0.069 H* (0.000-0.056) ng/mL C-Reactive Protein (0.0-0.3) mg/dL Total Protein (6.4-8.2) g/dL Albumin (3.4-5.0) g/dL Globulin (2.3-3.5) g/dL Albumin/Globulin Ratio (1.2-2.2) SARS Virus RNA (PCR) (NEGATIVE) Med Orders - Current: Current Medications Acetaminophen (Tylenol) 650 mg PO Q4H PRN PRN Reason: Pain (Mild 1-3)/fever Albuterol (Proventil Neb Soln) 2.5 mg NEB Q4H PRN PRN Reason: Shortness Of Breath/wheezing Albuterol/Ipratropium (Duoneb 3.0-0.5 Mg/3 Ml) 3 ml NEB QIDRT [facility] Last Admin: 06/12/20 10:58 Dose: 3 ml Documented by: Docusate Sodium (Colace) 100 mg PO BID PRN PRN Reason: Constipation Doxycycline Hyclate (Vibramycin) 100 mg PO Q12H [facility] Enoxaparin Sodium (Lovenox) 40 mg SUBCUT DAILY [facility] Last Admin: 06/12/20 08:20 Dose: 40 mg Documented by: Ceftriaxone Sodium 1 gm/ (Sodium Chloride) 50 mls @ 100 mls/hr IV Q24H [facility] Last Admin: 06/12/20 00:53 Dose: 100 mls/hr Documented by: Lactobacillus Rhamnosus (Culturelle) 1 cap PO BID [facility] Lorazepam (Ativan) 1 mg IV Q6H PRN PRN Reason: Nausea/Vomiting Methylprednisolone Sodium Succinate (Solu-Medrol) 62.5 mg IV Q6H [facility] Last Admin: 06/12/20 08:20 Dose: 62.5 mg Documented by: Montelukast Sodium (Singulair) 10 mg PO BEDTIME [facility] Morphine Sulfate (Morphine) 2 mg IVPUSH Q2H PRN PRN Reason: Pain (severe 7-10) Ondansetron HCl (Zofran Odt) 4 mg PO Q6H PRN PRN Reason: Nausea able to take PO Last Admin: 06/12/20 12:58 Dose: 4 mg Documented by: Oxycodone HCl (Oxycodone) 5 mg PO Q4H PRN PRN Reason: Pain (moderate 4-6) Last Admin: 06/12/20 11:28 Dose: 5 mg Documented by: Pantoprazole Sodium (Protonix) 40 mg PO ACBREAKFAST [facility] Last Admin: 06/12/20 08:20 Dose: 40 mg Documented by: Sodium Chloride (Saline Flush) 10 ml FLUSH ASDIRECTED PRN PRN Reason: Keep Vein Open Last Admin: 06/11/20 19:53 Dose: 10 ml Documented by: Discontinued Medications Albuterol/Ipratropium (Duoneb 3.0-0.5 Mg/3 Ml) 3 ml NEB ONETIME ONE Stop: 06/11/20 19:31 Last Admin: 06/11/20 19:43 Dose: 3 ml Documented by: Albuterol/Ipratropium (Duoneb 3.0-0.5 Mg/3 Ml) 3 ml NEB ONETIME ONE Stop: 06/11/20 21:13 Last Admin: 06/11/20 21:24 Dose: 3 ml Documented by: Sodium Chloride (Normal Saline) 1,000 mls @ 75 mls/hr IV ASDIRECTED [facility] Methylprednisolone Sodium Succinate (Solu-Medrol) 125 mg IVPUSH ONETIME ONE Stop: 06/11/20 21:13 Last Admin: 06/11/20 21:18 Dose: 125 mg Documented by: Morphine Sulfate (Morphine) 2 mg IVPUSH ONETIME ONE Stop: 06/11/20 19:43 Last Admin: 06/11/20 19:52 Dose: 2 mg Documented by: Non-Formulary Medication (*O2) 2 l INH ASDIRECTED [facility] Ondansetron HCl (Zofran) 4 mg IVPUSH ONETIME ONE Stop: 06/11/20 20:01 Last Admin: 06/11/20 20:07 Dose: 4 mg Documented by: Pantoprazole Sodium (Protonix) 40 mg PO DAILY [facility] - Exam Quality Assessment: Supplemental Oxygen, DVT Prophylaxis General: Alert, Oriented, Cooperative, Mild Distress Lungs: Normal Respiratory Effort, Decreased Breath Sounds. No: Rales, Rhonchi, Wheezing Cardiovascular: Regular Rate, Regular Rhythm, No Murmurs GI/Abdominal Exam: Soft, Non-Tender, No Organomegaly, No Distention Extremities: Non-Tender, No Pedal Edema Sepsis Event Note - Evaluation Sepsis Screening Result: Sepsis Risk - Focused Exam Vital Signs: Vital Signs Temp Pulse Resp BP Pulse Ox 06/12/20 13:17 94 L 06/12/20 11:24 96.9 F 75 16 103/62 96 06/12/20 10:58 90 06/12/20 07:23 96 F L 92 18 121/64 95 06/12/20 07:10 95 06/12/20 02:18 97.8 F 75 20 100/66 97 - Problem List Review Problem List Initiated/Reviewed/Updated: Yes - My Orders Last 24 Hours: My Active Orders 06/12/20 13:22 Convert IV to Saline Lock [OM.PC] Routine 06/12/20 13:30 Doxycycline [Vibramycin] 100 mg PO Q12H 06/12/20 13:45 Lactobacillus Rhamnosus GG [Culturelle] 1 cap PO BID 06/13/20 05:00 TROPONIN I [CHEM] Timed - Plan Plan:: ASSESSMENT AND PLAN- COPD EXACERBATION COPD EXACERBATION - on home oxygen at 2 liter per NC. smoke 6 cigarettes daily. Improved from admission with less shortness of breath and cough -oxygen at 2 liter per NC -Saline lock IV -Doxycycline 100 mg p.o. every 12 hours -IV Rocephin 1 gm every 24 hours -IV Solu-Medrol IV 62.5 mg. every 6 hours -Duo-neb scheduled every 6 hours -Albuterol nebs every 4 hours as needed Elevated Tropin-likely secondary to demand ischemia in the setting of respiratory compromise -Recheck in a.m. Tobacco use -declines patch or gum MAINTENANCE ISSUES -DVT prophylaxis- SCD -GI prophylaxis- Protonix 40 mg daily -Avila catheter- not indicated -Nutrition- regular diet -Nicotine dependence- declines patch CODE STATUS-FULL CODE ADMISSION STATUS-patient will be admitted to inpatient status, expect at least a 2 night hospital stay for evaluation and management of problems as outlined above. At the time of this admission I do not reasonably expected evaluation and management of this problem will require more than a 96 hour hospital stay. DISPOSITION-anticipate discharge to home after the hospital stay. PRIMARY CARE PROVIDER- Carla Swartz [facility] HOSPITALIST- Dr. Ingram - Mortality Measure Prognosis:: Good
[2020-06-12] MEDS: Lactobacillus Rhamnosus GG (Probiotic) Cap PO SCH ×2 (14:27→20:46)
[2020-06-12] MEDS: Doxycycline 100 MG Cap PO SCH ×2 (14:27→20:46)
[2020-06-12] MEDS ORDERED: Montelukast 10 MG Tab PO SCH (21:00)
[2020-06-13] MEDS: oxyCODONE 5 MG Tab PO PRN (00:25)
[2020-06-13] MEDS: methylPREDNISolone Sodium Succinate 125 MG/2 ML SDV IV SCH ×2 (03:26→07:17)
[2020-06-13] MEDS: Pantoprazole 40 MG Tab.CR PO SCH (07:17)
[2020-06-13] MEDS: Albuterol/Ipratropium 3.0-0.5 MG/3 ML Neb Soln NEB SCH ×2 (07:25→10:50)
[2020-06-13] MEDS: Enoxaparin 40 MG/0.4 ML Syringe SUBCUT SCH (08:10)
[2020-06-13] MEDS: Doxycycline 100 MG Cap PO SCH (08:10)
[2020-06-13] MEDS: Lactobacillus Rhamnosus GG (Probiotic) Cap PO SCH (08:10)
--- NOTE | 2020-06-13 12:04 | PCM.DCSUM1 ---
Discharge Summary - Hospital Course Brief History: Ms. Whitten is a 75-year-old woman who was admitted through the emergency department with shortness of breath and cough secondary to COPD exacerbation and underlying bronchitis. - Discharge Data Discharge Date: 06/13/20 Discharge Disposition: Home, Self-Care 01 Condition: Fair - Referral to Home Health Primary Care Physician: Carla Swartz PA-C - Discharge Diagnosis/Problem(s) (1) Troponin I above reference range SNOMED Code(s): 374394215 ICD Code: R79.89 - OTHER SPECIFIED ABNORMAL FINDINGS OF BLOOD CHEMISTRY Status: Acute Priority: High Current Visit: Yes (2) Acute exacerbation of chronic obstructive airways disease SNOMED Code(s): 519765626 ICD Code: J44.1 - CHRONIC OBSTRUCTIVE PULMONARY DISEASE W (ACUTE) EXACERBATION Status: Acute Priority: High Current Visit: Yes (3) Pneumonia SNOMED Code(s): 961402226 ICD Code: J18.9 - PNEUMONIA, UNSPECIFIED ORGANISM Status: Acute Current Visit: Yes Qualifiers: Pneumonia type: due to unspecified organism Laterality: bilateral Lung location: lower lobe of lung Qualified Code(s): J18.9 - Pneumonia, unspecified organism - Patient Summary/Data Hospital Course: Ms. Whitten presented by ambulance complaining of worsening shortness of breath over the last several days but overall decline in her general health and constitution for the last couple of weeks. She was seen in the clinic approximately 10 to 14 days ago and after that visit a CT scan of the chest was ordered. According to the patient she was told that her left lung is completely consolidated and there is apparently bronchoscopy upcoming to assess this further. In the last few days she has had only brief relief from inhaled medications at home. She reports that she has had ongoing difficulty with low back pain. She states that she has been consuming large amounts of ibuprofen trying to keep the head of her pain. On evaluation in the emergency department she was noted to have a mild elevation in white blood cell count and evidence of patchy infiltrate on chest x-ray consistent with pneumonia. Blood cultures were obtained and remained negative up until discharge. She was given IV fluids for hydration and started on antibiotic therapy with ceftriaxone and doxycycline. She improved significantly over the 2 days of hospitalization and felt as though she was back to baseline with her respiratory status by the time of discharge. White blood cell count normalized afebrile throughout hospitalization. She did receive IV Solu-Medrol as well as nebulizer therapy. She will be discharged home with an additional 4 days of oral prednisone and 5 days of oral antibiotic therapy with doxycycline. She already has home oxygen 2 L/min via nasal cannula. Follow-up appointment will be scheduled with her primary care provider within 1 week. Activity will be as tolerated and she will resume her usual diet. Of oxycodone to use for exacerbation of her low back pain. - Patient Instructions Diet: Usual Diet as Tolerated Activity: As Tolerated Other/Special Instructions: Please schedule follow-up appointment with primary care provider within 1 week. - Discharge Plan *PRESCRIPTION DRUG MONITORING PROGRAM REVIEWED*: Not Applicable *COPY OF PRESCRIPTION DRUG MONITORING REPORT IN PATIENT LEO: Not Applicable Prescriptions/Med Rec: Lactobacillus Rhamnosus GG [Culturelle] 1 cap PO BID #60 cap oxyCODONE 5 mg PO Q4H PRN #20 tablet PRN Reason: Pain (Moderate 4-6) predniSONE [Prednisone] 40 mg PO DAILY #8 tablet Doxycycline [Vibramycin] 100 mg PO BID #10 cap Home Medications: Home Meds *O2 2 l INH ASDIRECTED 06/02/18 [History] Albuterol [Ventolin HFA] 8 gm IH Q4H PRN 06/02/18 [History] Ipratropium/Albuterol Sulfate [Iprat-Albut 0.5-3(2.5) MG/3 ML] 1 inhalation PO BID 06/02/18 [History] Fluticasone/Umeclidin/Vilanter [Trelegy Ellipta 100-62.5-25] 1 puff IN ASDIRECTED 06/11/20 [History] Doxycycline [Vibramycin] 100 mg PO BID #10 cap 06/13/20 [Rx] Lactobacillus Rhamnosus GG [Culturelle] 1 cap PO BID #60 cap 06/13/20 [Rx] oxyCODONE 5 mg PO Q4H PRN #20 tablet 06/13/20 [Rx] predniSONE [Prednisone] 40 mg PO DAILY #8 tablet 06/13/20 [Rx] Oxygen Therapy Mode: Nasal Cannula Oxygen Flow Rate (L/min): 2 Patient Handouts: Chronic Obstructive Pulmonary Disease, [id number] Referrals: Carla Swartz PA-C [Primary Care Provider] - 06/20/20 11:30 am (Please arrive 15 minutes early to register for your appointment.) - Discharge Summary/Plan Comment DC Time >30 min.: No - Patient Data Vitals - Most Recent: Last Vital Signs Temp 95.2 F L 06/13/20 08:12 Pulse 86 06/13/20 10:51 Resp 18 06/13/20 08:12 BP 114/64 06/13/20 08:12 Pulse Ox 93 L 06/13/20 08:12 Weight - Most Recent: 91 lb 9.598 oz I&O - Last 24 hours: Intake & Output 06/12/20 06/13/20 06/13/20 22:59 06:59 14:59 Intake Total 240 Balance 240 Lab Results - Last 24 hrs: Laboratory Results - last 24 hr 06/13/20 Range/Units 05:58 Troponin I 0.078 H* (0.000-0.056) ng/mL Med Orders - Current: Current Medications Acetaminophen (Tylenol) 650 mg PO Q4H PRN PRN Reason: Pain (Mild 1-3)/fever Albuterol (Proventil Neb Soln) 2.5 mg NEB Q4H PRN PRN Reason: Shortness Of Breath/wheezing Albuterol/Ipratropium (Duoneb 3.0-0.5 Mg/3 Ml) 3 ml NEB QIDRT [facility] Last Admin: 06/13/20 10:50 Dose: 3 ml Documented by: Docusate Sodium (Colace) 100 mg PO BID PRN PRN Reason: Constipation Doxycycline Hyclate (Vibramycin) 100 mg PO BID [facility] Last Admin: 06/13/20 08:10 Dose: 100 mg Documented by: Enoxaparin Sodium (Lovenox) 40 mg SUBCUT DAILY [facility] Last Admin: 06/13/20 08:10 Dose: Not Given Documented by: Ceftriaxone Sodium 1 gm/ (Sodium Chloride) 50 mls @ 100 mls/hr IV Q24H [facility] Last Admin: 06/12/20 23:40 Dose: 100 mls/hr Documented by: Lactobacillus Rhamnosus (Culturelle) 1 cap PO BID [facility] Last Admin: 06/13/20 08:10 Dose: 1 cap Documented by: Lorazepam (Ativan) 1 mg IV Q6H PRN PRN Reason: Nausea/Vomiting Methylprednisolone Sodium Succinate (Solu-Medrol) 62.5 mg IV Q6H [facility] Last Admin: 06/13/20 07:17 Dose: 62.5 mg Documented by: Montelukast Sodium (Singulair) 10 mg PO BEDTIME [facility] Last Admin: 06/12/20 20:46 Dose: 10 mg Documented by: Morphine Sulfate (Morphine) 2 mg IVPUSH Q2H PRN PRN Reason: Pain (severe 7-10) Ondansetron HCl (Zofran Odt) 4 mg PO Q6H PRN PRN Reason: Nausea able to take PO Last Admin: 06/12/20 12:58 Dose: 4 mg Documented by: Oxycodone HCl (Oxycodone) 5 mg PO Q4H PRN PRN Reason: Pain (moderate 4-6) Last Admin: 06/13/20 00:25 Dose: 5 mg Documented by: Pantoprazole Sodium (Protonix) 40 mg PO ACBREAKFAST [facility] Last Admin: 06/13/20 07:17 Dose: 40 mg Documented by: Sodium Chloride (Saline Flush) 10 ml FLUSH ASDIRECTED PRN PRN Reason: Keep Vein Open Last Admin: 06/11/20 19:53 Dose: 10 ml Documented by: Discontinued Medications Albuterol/Ipratropium (Duoneb 3.0-0.5 Mg/3 Ml) 3 ml NEB ONETIME ONE Stop: 06/11/20 19:31 Last Admin: 06/11/20 19:43 Dose: 3 ml Documented by: Albuterol/Ipratropium (Duoneb 3.0-0.5 Mg/3 Ml) 3 ml NEB ONETIME ONE Stop: 06/11/20 21:13 Last Admin: 06/11/20 21:24 Dose: 3 ml Documented by: Sodium Chloride (Normal Saline) 1,000 mls @ 75 mls/hr IV ASDIRECTED [facility] Methylprednisolone Sodium Succinate (Solu-Medrol) 125 mg IVPUSH ONETIME ONE Stop: 06/11/20 21:13 Last Admin: 06/11/20 21:18 Dose: 125 mg Documented by: Morphine Sulfate (Morphine) 2 mg IVPUSH ONETIME ONE Stop: 06/11/20 19:43 Last Admin: 06/11/20 19:52 Dose: 2 mg Documented by: Non-Formulary Medication (*O2) 2 l INH ASDIRECTED [facility] Ondansetron HCl (Zofran) 4 mg IVPUSH ONETIME ONE Stop: 06/11/20 20:01 Last Admin: 06/11/20 20:07 Dose: 4 mg Documented by: Pantoprazole Sodium (Protonix) 40 mg PO DAILY [facility] - Exam General: Reports: Alert, Oriented, Cooperative, No Acute Distress Lungs: Reports: Normal Respiratory Effort, Decreased Breath Sounds. Denies: Rales, Rhonchi, Wheezing Cardiovascular: Reports: Regular Rate, No Murmurs, Irregular Rhythm GI/Abdominal Exam: Soft, Non-Tender, No Organomegaly, No Distention Extremities: Non-Tender, No Pedal Edema
[2020-06-13 12:20] VITALS: BP 127/68; PULSE 74
[2020-06-13] MEDS ORDERED: methylPREDNISolone Sodium Succinate 125 MG/2 ML SDV IV ONE (12:30)
== END 2020-06-13 13:00 | disposition home or self-care (01) | DRG 190 ==
LOC: JP.ED 19:09 → UNDOADMIN 23:34 → JP.MS 23:34
PROVIDERS: ADMIT Internal Medicine; ATTEND Internal Medicine
DX: J44.1 Chronic obstructive pulmonary disease with (acute) exacerbation (principal); J18.9 Pneumonia, unspecified organism; J44.0 Chronic obstructive pulmonary disease with (acute) lower respiratory infection; R74.8 Abnormal levels of other serum enzymes; H54.7 Unspecified visual loss; G89.29 Other chronic pain; M54.9 Dorsalgia, unspecified; M19.90 Unspecified osteoarthritis, unspecified site; M79.7 Fibromyalgia; L40.9 Psoriasis, unspecified; Z22.0 Carrier of typhoid; F17.210 Nicotine dependence, cigarettes, uncomplicated; Z90.49 Acquired absence of other specified parts of digestive tract; Z79.52 Long term (current) use of systemic steroids; Z79.899 Other long term (current) drug therapy; Z88.2 Allergy status to sulfonamides; Z88.1 Allergy status to other antibiotic agents; J40 Bronchitis, not specified as acute or chronic; Z20.828 Contact with and (suspected) exposure to other viral communicable diseases
CPT/HCPCS: 36415; 36600; 71045; 71045-26; 80048; 80053; 82803; 84484; 85025; 86140; 93005; 93010; 94640; 94762; 96374; 96375; 99285-25; A9270-GY; J0696; J1650; J2270; J2405; J2930; J7050; J7620-GY; U0002

== ENCOUNTER 2020-07-14 07:34 | Day surgery (SDC) | payer MEDICARE, OTHER ==
[~2020-07-14 07:34] MED LIST: Midazolam 1 MG/ML 2 ML SDV ONE; fentaNYL 100 MCG/2 ML SDV ONE
[2020-07-14] MEDS ORDERED: Lidocaine 2% Viscous Solution 15 ML Cup ONE (07:59)
[2020-07-14] MEDS ORDERED: Albuterol/Ipratropium 3.0-0.5 MG/3 ML Neb Soln NEB ONE (08:00)
[2020-07-14] MEDS ORDERED: Dextrose 5%-Lactated Ringers 1,000 ML IV SCH (08:00)
[2020-07-14] MEDS ORDERED: Lidocaine 4% Top Soln 50 ML Bottle ONE (08:00)
[2020-07-14] MEDS ORDERED: Propofol 200 MG/20 ML SDV ONE (08:32)
[2020-07-14] MEDS ORDERED: Lidocaine 4% Top Soln LTA 4 ML Syringe Kit ONE (08:33)
[2020-07-14 10:51] VITALS: BP 96/56; PULSE 84
--- NOTE | 2020-07-17 08:34 | OR ---
DATE OF PROCEDURE: 07/14/2020 SURGEON: Bethel Conde MD PREOPERATIVE DIAGNOSIS: Advanced chronic obstructive pulmonary disease with history of fungal infections and recent bibasilar infiltrates seen on CT scan. POSTOPERATIVE DIAGNOSES: 1. Advanced chronic obstructive pulmonary disease with history of fungal infections and recent bibasilar infiltrates seen on CT scan. 2. Large amount of thick mucoid secretions throughout the tracheobronchial tree, but otherwise grossly normal exam. OPERATIVE PROCEDURE: Flexible bronchoscopy with: 1. Tracheobronchial washings. 2. Bronchoalveolar lavage to lateral basilar segment of right lower lobe. ANESTHESIA: Topical plus IV sedation. INDICATION FOR PROCEDURE: A 75-year-old female with advanced COPD presenting for diagnostic bronchoscopy. She, in May, had a CT scan showing bibasilar infiltrates, more on the right than the left, and the plan is to proceed with flexible bronchoscopy with tracheobronchial washings and minimally otherwise a bronchoalveolar lavage to the right lower lobe and then other biopsies or brushings as indicated. Potential risks of the procedure including bleeding, aspiration of gastric contents, exacerbation of her pulmonary disability were all reviewed, and the patient wishes to proceed. DETAILS OF PROCEDURE: The patient was taken to the operative room and placed in a semi- sitting position. IV sedation was administered, after which the nasal passages, hypopharynx, and larynx were anesthetized with topical lidocaine. Anesthesia then passed via the vocal cords some endotracheal lidocaine. Flexible bronchoscope was then passed through the left side of the nose. Visualized nasopharynx, hypopharynx, and larynx were unremarkable. Cord motion was symmetrical. Within the trachea, there were no areas of significant tracheitis or bronchitis seen, and there were no endobronchial obstructing lesions. The main finding was that of a large amount of very thick tenacious clear mucoid secretions throughout the tracheobronchial tree. These were evacuated with the aid of injection of some lidocaine and saline until these were all subsequently cleared. At this point, in the lateral basilar segment of right lower lobe, the bronchoscope was wedged and 200 mL of saline was injected. The return then was fairly clear as well and did not appear to be purulent. The procedure was then concluded. The patient tolerated the procedure well and was taken to the recovery room in satisfactory condition. The tracheobronchial washings and bronchoalveolar lavage specimens will both be sent for full cytologic and microbiologic workup, including routine Gram stain and cultures, acid- fast stains and cultures, and fungal stains and cultures. The patient will be set up to see Carla Swartz in followup in 7 to 10 days. Those culture reports would be available at the hospital lab at the time of that appointment. With regard to the mucoid secretions, the patient might benefit from adding a DuoNeb with Mucomyst perhaps twice a day, to try to break up those secretions, that could be a trial initiated as an outpatient. Bethel Conde MD /[id number]
== END 2020-07-14 11:37 | disposition home or self-care (01) ==
LOC: JP.SDS 07:34
PROVIDERS: ATTEND Surgery
DX: J13 Pneumonia due to Streptococcus pneumoniae (principal); J44.9 Chronic obstructive pulmonary disease, unspecified; F17.200 Nicotine dependence, unspecified, uncomplicated; Z88.0 Allergy status to penicillin; Z86.19 Personal history of other infectious and parasitic diseases
CPT/HCPCS: 31624; 87015; 87070; 87102; 87116; 87184; 87205; 87206; 87220; 94640; A9270; J2250; J2704; J3010; J7121; J7620-GY

== ENCOUNTER 2020-07-16 18:20 | Emergency (ER) | payer MEDICARE ==
[2020-07-16] MEDS ORDERED: Sodium Chloride 0.9% 10 ML Syringe FLUSH PRN (18:26)
--- NOTE | 2020-07-16 18:35 | EDM.PDOC ---
ED HPI GENERAL MEDICAL PROBLEM - General Stated Complaint: [facility] Time Seen by Provider: 07/16/20 18:24 Source of Information: Reports: Patient, EMS, RN Notes Reviewed History Limitations: Reports: Respiratory Distress - History of Present Illness INITIAL COMMENTS - FREE TEXT/NARRATIVE: 75-year-old female presents emergency department today via EMS services for increasing shortness of breath. She is known history of COPD was recently admitted to the hospital June 13 for COPD exacerbation with bronchitis. Recently underwent bronchoscopy 3 days prior states after the bronchoscopy she i s gotten more more short of breath to where today felt she was in significant trouble called EMS services for transportation to the hospital. EMS did pick her up found her to be hypoxic they felt it was more a congestive heart failure type picture therefore they placed her on CPAP and provided 2 sprays of nitro as her initial systolic blood pressure was around 220 this did drop her blood pressure to a systolic of 90. At the time of arrival she is on CPAP she is only speaking in 1 and 2 word sentences difficult to obtain review of systems and history - Related Data Allergies Allergy/AdvReac Type Severity Reaction Status Date / Time amoxicillin [Amoxicillin] Allergy Severe Airway Verified 07/16/20 18:28 Tightness Sulfa (Sulfonamide Allergy Rash Verified 07/16/20 18:28 Antibiotics) Home Meds: Home Meds *O2 2 l INH ASDIRECTED 06/02/18 [History] Albuterol [Ventolin HFA] 2 puff IH Q4H PRN 06/02/18 [History] Ipratropium/Albuterol Sulfate [Iprat-Albut 0.5-3(2.5) MG/3 ML] 1 inhalation PO BID 06/02/18 [History] Fluticasone/Umeclidin/Vilanter [Trelegy Ellipta 100-62.5-25] 1 puff IN ASDIRECTED 06/11/20 [History] Cyclobenzaprine [Flexeril] 10 mg PO TID 07/06/20 [History] Diclofenac Sodium [Voltaren] 50 mg PO BID 07/06/20 [History] Montelukast [Singulair] 10 mg PO BEDTIME 07/06/20 [History] Ondansetron [Zofran ODT] 4 mg PO Q8HR PRN 07/06/20 [History] Past Medical History HEENT History: Reports: Cataract, Impaired Vision Cardiovascular History: Reports: Heart Murmur Other Cardiovascular History: stenosis Respiratory History: Reports: Bronchitis, Recurrent, COPD Other Respiratory History: left lung consolidation Gastrointestinal History: Reports: Chronic Constipation 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: Musculoskeletal History: Reports: Back Pain, Chronic, Fibromyalgia, Osteoarthritis Psychiatric History: Reports: Addiction Dermatologic History: Reports: Psoriasis - Infectious Disease History Infectious Disease History: Reports: Measles, Mumps - Past Surgical History HEENT Surgical History: Reports: Cataract Surgery Cardiovascular Surgical History: Reports: None Respiratory Surgical History: Reports: None GI Surgical History: Reports: Cholecystectomy, Colonoscopy Female Surgical History: Reports: Breast Biopsy Neurological Surgical History: Reports: None Musculoskeletal Surgical History: Reports: None Dermatological Surgical History: Reports: None Social & Family History - Family History Family Medical History: Noncontributory - Caffeine Use Caffeine Use: Reports: Coffee Caffeine Use Comment: "lots" - Living Situation & Occupation Living situation: Reports: , Alone Occupation: Retired (Lives alone in [facility]. Has 5 children 3 live in the area.) ED ROS GENERAL - Review of Systems Review Of Systems: See Below Constitutional: Reports: No Symptoms HEENT: Reports: No Symptoms Respiratory: Reports: Shortness of Breath, Cough. Denies: Wheezing Cardiovascular: Reports: Dyspnea on Exertion. Denies: Chest Pain GI/Abdominal: Reports: No Symptoms ED EXAM, GENERAL - Physical Exam Exam: See Below Exam Limited By: Respiratory Distress General Appearance: Alert, Mild Distress Neck: Normal Inspection, Supple, Non-Tender, Full Range of Motion Respiratory/Chest: Decreased Breath Sounds, Crackles, Rhonchi, Accessory Muscle Use Cardiovascular: No Murmur, Tachycardia Course - Orders/Labs/Meds Orders: Active Orders 24 hr Category Date Time Status Cardiac Monitoring [RC] .As Directed Care 07/16/20 18:26 Active EKG Documentation Completion [RC] ASDIRECTED Care 07/16/20 18:27 Active Peripheral IV Care [RC] . DIRECTED Care 07/16/20 18:27 Active CULTURE BLOOD [BC] Urgent Lab 07/16/20 20:37 Ordered CULTURE BLOOD [BC] Urgent Lab 07/16/20 20:37 Ordered Levofloxacin/Dextrose 5%-Water [Levaquin in D5W 750 MG/ Med 07/16/20 20:45 Ordered 150 ML] 750 mg Premix Bag 1 bag IV Q24H Sodium Chloride 0.9% [Saline Flush] Med 07/16/20 18:26 Active 10 ml FLUSH ASDIRECTED PRN Blood Culture x2 Reflex Set [OM.PC] Urgent Oth 07/16/20 20:37 Ordered Peripheral IV Insertion Adult [OM.PC] Stat Oth 07/16/20 18:26 Ordered Saline Lock Insert [OM.PC] Stat Oth 07/16/20 18:26 Ordered EKG 12 Lead [EK] Stat Ther 07/16/20 18:27 Ordered Medication Orders Levofloxacin/Dextrose 750 mg/ (Premix) 150 mls @ 100 mls/hr IV Q24H RICARDO Sodium Chloride (Saline Flush) 10 ml FLUSH ASDIRECTED PRN PRN Reason: Keep Vein Open Last Admin: 07/16/20 18:52 Dose: 10 ml Documented by: ROBERTO Labs: Laboratory Tests 07/16/20 07/16/20 07/16/20 Range/Units 18:43 18:43 18:43 WBC 12.2 H (4.5-11.0) K/uL RBC 3.08 L (3.30-5.50) M/uL Hgb 7.8 L D (12.0-15.0) g/dL Hct 25.4 L (36.0-48.0) % MCV 83 (80-98) fL MCH 25 L (27-31) pg MCHC 31 L (32-36) % Plt Count 540 H (150-400) K/uL Neut % (Auto) 78 H (36-66) % Lymph % (Auto) 11 L (24-44) % Bremer % (Auto) 10 H (2-6) % Eos % (Auto) 1 L (2-4) % Baso % (Auto) 0 (0-1) % Puncture Site ABG pH (7.350-7.450) ABG pCO2 (35.0-42.0) mmHg ABG pO2 (75.0-100.0) mmHg ABG HCO3 (22.0-26.0) mmol/L ABG Total CO2 (21.0-25.0) mmol/L ABG O2 Saturation (95.0-98.0) % ABG O2 Content (15.0-23.0) %vol ABG Base Excess mm/L ABG Hemoglobin (12.0-16.0) g/dL ABG Oxyhemoglobin % ABG Carboxyhemoglobin (0.0-1.6) % ABG Methemoglobin % Emmanuel Test O2 Delivery Device Sodium 136 L (140-148) mmol/L Potassium 4.1 (3.6-5.2) mmol/L Chloride 100 (100-108) mmol/L Carbon Dioxide 29 (21-32) mmol/L Anion Gap 11.1 (5.0-14.0) mmol/L BUN 25 H (7-18) mg/dL Creatinine 0.7 (0.6-1.0) mg/dL Est Cr Clr Drug Dosing 40.96 mL/min Estimated GFR (MDRD) > 60 (>60) Glucose 127 H (74-106) mg/dL Lactic Acid 1.2 (0.4-2.0) mmol/L Calcium 8.4 L (8.5-10.1) mg/dL Total Bilirubin 0.2 (0.2-1.0) mg/dL AST 27 (15-37) U/L ALT 18 (12-78) U/L Alkaline Phosphatase 71 (46-116) U/L Troponin I < 0.017 (0.000-0.056) ng/mL NT-Pro-B Natriuret Pep 1386 H (5-450) pg/mL Total Protein 6.0 L (6.4-8.2) g/dL Albumin 1.7 L (3.4-5.0) g/dL Globulin 4.3 H (2.3-3.5) g/dL Albumin/Globulin Ratio 0.4 L (1.2-2.2) 07/16/20 07/16/20 Range/Units 18:43 20:00 WBC (4.5-11.0) K/uL RBC (3.30-5.50) M/uL Hgb (12.0-15.0) g/dL Hct (36.0-48.0) % MCV (80-98) fL MCH (27-31) pg MCHC (32-36) % Plt Count (150-400) K/uL Neut % (Auto) (36-66) % Lymph % (Auto) (24-44) % Bremer % (Auto) (2-6) % Eos % (Auto) (2-4) % Baso % (Auto) (0-1) % Puncture Site Lt radial Tr.brachial ABG pH 7.484 H 7.497 H (7.350-7.450) ABG pCO2 37.0 35.7 (35.0-42.0) mmHg ABG pO2 120.0 H 79.0 (75.0-100.0) mmHg ABG HCO3 27.5 H 27.4 H (22.0-26.0) mmol/L ABG Total CO2 25.1 H 25.8 H (21.0-25.0) mmol/L ABG O2 Saturation 98.6 H 96.5 (95.0-98.0) % ABG O2 Content 14.1 L 10.2 L (15.0-23.0) %vol ABG Base Excess 4.3 4.3 mm/L ABG Hemoglobin 10.3 L 7.6 L (12.0-16.0) g/dL ABG Oxyhemoglobin 95.8 94.3 % ABG Carboxyhemoglobin 2.0 H 1.9 H (0.0-1.6) % ABG Methemoglobin 0.8 0.4 % Emmanuel Test Passed TNP O2 Delivery Device Cpap Bipap Sodium (140-148) mmol/L Potassium (3.6-5.2) mmol/L Chloride (100-108) mmol/L Carbon Dioxide (21-32) mmol/L Anion Gap (5.0-14.0) mmol/L BUN (7-18) mg/dL Creatinine (0.6-1.0) mg/dL Est Cr Clr Drug Dosing mL/min Estimated GFR (MDRD) (>60) Glucose (74-106) mg/dL Lactic Acid (0.4-2.0) mmol/L Calcium (8.5-10.1) mg/dL Total Bilirubin (0.2-1.0) mg/dL AST (15-37) U/L ALT (12-78) U/L Alkaline Phosphatase (46-116) U/L Troponin I (0.000-0.056) ng/mL NT-Pro-B Natriuret Pep (5-450) pg/mL Total Protein (6.4-8.2) g/dL Albumin (3.4-5.0) g/dL Globulin (2.3-3.5) g/dL Albumin/Globulin Ratio (1.2-2.2) Meds: Medications Generic Name Dose Route Start Last Admin Trade Name Freq PRN Reason Stop Dose Admin Levofloxacin/Dextrose 750 mg/ 150 mls @ 100 mls/hr 07/16/20 20:45 Premix IV Q24H RICARDO Sodium Chloride 10 ml 07/16/20 18:26 07/16/20 18:52 Saline Flush FLUSH 10 ml ASDIRECTED PRN Administration Keep Vein Open Departure - Departure Time of Disposition: 21:02 Disposition: DC/Tfer to [facility] 02 Condition: Fair Clinical Impression: Pneumothorax on right Pneumonia Qualifiers: Pneumonia type: due to unspecified organism Laterality: right Lung location: upper lobe of lung Qualified Code(s): J18.9 - Pneumonia, unspecified organism - Discharge Information Referrals: Carla Swartz PA-C [Primary Care Provider] - - My Orders Last 24 Hours: My Active Orders 07/16/20 18:26 Cardiac Monitoring [RC] .As Directed Sodium Chloride 0.9% [Saline Flush] 10 ml FLUSH ASDIRECTED PRN Peripheral IV Insertion Adult [OM.PC] Stat Saline Lock Insert [OM.PC] Stat 07/16/20 18:27 EKG Documentation Completion [RC] ASDIRECTED Peripheral IV Care [RC] . DIRECTED EKG 12 Lead [EK] Stat 07/16/20 20:37 CULTURE BLOOD [BC] Urgent CULTURE BLOOD [BC] Urgent Blood Culture x2 Reflex Set [OM.PC] Urgent 07/16/20 20:45 Levofloxacin/Dextrose 5%-Water [Levaquin in D5W 750 MG/150 ML] 750 mg Premix Bag 1 bag IV Q24H - Assessment/Plan Last 24 Hours: My Active Orders 07/16/20 18:26 Cardiac Monitoring [RC] .As Directed Sodium Chloride 0.9% [Saline Flush] 10 ml FLUSH ASDIRECTED PRN Peripheral IV Insertion Adult [OM.PC] Stat Saline Lock Insert [OM.PC] Stat 07/16/20 18:27 EKG Documentation Completion [RC] ASDIRECTED Peripheral IV Care [RC] . DIRECTED EKG 12 Lead [EK] Stat 07/16/20 20:37 CULTURE BLOOD [BC] Urgent CULTURE BLOOD [BC] Urgent Blood Culture x2 Reflex Set [OM.PC] Urgent 07/16/20 20:45 Levofloxacin/Dextrose 5%-Water [Levaquin in D5W 750 MG/150 ML] 750 mg Premix Bag 1 bag IV Q24H Plan: Assessment Acuity = acute Site and laterality = community-acquired pneumonia with small pneumothorax right upper lobe Etiology = unknown probable bacterial cause Manifestations = dyspnea exacerbation Location of injury = Home Lab values = WBC elevated 12.2 consistent leukocytosis, hemoglobin low at 7.8 which consistent with normochromic anemia this is a new finding hemoglobin 1 month ago was around 12 platelets elevated at 540 consistent with thrombocytosis ABG reveals pH 7.49 PCO2 35.7 PO2 of 79 and a bicarb 27.4 sodium low at 136 consistent with hyponatremia troponin is negative BNP elevated 1386 with a baseline around 300, albumin low at 1.7 consistent hypoalbuminemia EKG demonstrates left axis deviation sinus tachycardia no ST elevations or depressions chest x-ray reveals right upper lobe opacity consistent with a pneumonia as well as a small right upper lobe pneumothorax, COVID test 48 hours prior was negative Plan Call discussed case Dr. Ho[facility] emergency room physician at 2044 he kindly accept the patient in transport she will be transported via EMS ground we are currently out of beds at this time to take care of this patient This note was dictated using [email or web address] voice recognition software please call with any questions on syntax or grammar.
--- NOTE | 2020-07-16 20:28 | CRLCR ---
COMPARISON: Chest x-ray 06/11/2020 Findings: Mild prominent cardiac silhouette. Thoracic aorta appears ectatic tortuous. There is a small right apical pneumothorax. There is interval development of right perihilar upper lobe opacity. Basilar probable fibrotic change. Emphysema. No effusion. Impression: 1. Small right upper lobe pneumothorax. 2. Right perihilar upper lobe opacity may represent pneumonia in the correct clinical setting. Follow-up imaging is recommended to ensure resolution. 3. Emphysema Results called to Dr. Monroy on 07/16/2020 8:15 p.m. Dictated by Roxana Mancuso MD @ Jul 16 2020 8:01PM (Electronically Signed)
[2020-07-16] MEDS ORDERED: Levofloxacin/Dextrose 5%-Water 750 MG in Premix Bag 1 BAG IV SCH (20:45)
[2020-07-16] MEDS ORDERED: Ketorolac 30 MG/ML SDV IVPUSH ONE (22:18)
[2020-07-16 22:55] VITALS: BP 102/39; PULSE 96
== END 2020-07-16 23:39 ==
LOC: JP.ED 18:20
DX: J93.9 Pneumothorax, unspecified (principal); J18.9 Pneumonia, unspecified organism; J44.9 Chronic obstructive pulmonary disease, unspecified; M19.90 Unspecified osteoarthritis, unspecified site; Z88.1 Allergy status to other antibiotic agents; Z88.2 Allergy status to sulfonamides; Z79.1 Long term (current) use of non-steroidal anti-inflammatories (NSAID); Z79.899 Other long term (current) drug therapy
CPT/HCPCS: 36415; 36600; 71045; 80053; 81001; 82803; 83605; 83880; 84484; 85025; 87040; 93005; 96365; 96375; 99285; J1885; J1956; 93010

== ENCOUNTER 2020-08-28 15:26 | Emergency (ER) | payer MEDICARE ==
[2020-08-28 15:35] VITALS: BP 132/80; PULSE 108
[2020-08-28] MEDS ORDERED: Sodium Chloride 0.9% 10 ML Syringe FLUSH PRN (15:36)
[2020-08-28] MEDS ORDERED: methylPREDNISolone Sodium Succinate 125 MG/2 ML SDV IVPUSH ONE (15:36)
[2020-08-28] MEDS ORDERED: Albuterol 0.083% 2.5 MG/3 ML Neb Soln NEB ONE (15:37)
--- NOTE | 2020-08-28 15:41 | EDM.PDOC ---
ED HPI GENERAL MEDICAL PROBLEM - General Chief Complaint: Respiratory Problem Stated Complaint: MEDICAL VIA NORTH Time Seen by Provider: 08/28/20 15:37 Source of Information: Reports: Patient History Limitations: Reports: No Limitations - History of Present Illness INITIAL COMMENTS - FREE TEXT/NARRATIVE: PT HAS BEEN VERY TIGHT IN HER CHEST AND HAS INCREASED SOB. sHE HAS BEEN COUGHING UP SOME COLORED SPUTUM. sHE HAS BEEN SEEN IN [place] BY HER PULMONOLGIST AND THERE WAS SOME TALK OF HOSPICE. sHE STILL DOES WANT A FULL CODE BUT DOES NOT WANT TO BE ON A RESPIRATOR. Onset: Gradual Duration: Hour(s): Location: Reports: Chest Associated Symptoms: Reports: Cough, Shortness of Breath, Other (PT FEELS VERY TIGHT IN HER CHEST. ) - Related Data Allergies Allergy/AdvReac Type Severity Reaction Status Date / Time amoxicillin [Amoxicillin] Allergy Severe Airway Verified 08/28/20 15:38 Tightness Sulfa (Sulfonamide Allergy Rash Verified 08/28/20 15:38 Antibiotics) Home Meds: Home Meds *O2 2 unit INH ASDIRECTED 06/02/18 [History] Albuterol [Ventolin HFA] 2 puff IH Q4H PRN 06/02/18 [History] Ipratropium/Albuterol Sulfate [Iprat-Albut 0.5-3(2.5) MG/3 ML] 1 inhalation PO BID 06/02/18 [History] Cyclobenzaprine [Flexeril] 10 mg PO TID 07/06/20 [History] Montelukast [Singulair] 10 mg PO BEDTIME 07/06/20 [History] Ondansetron [Zofran ODT] 4 mg PO Q8HR PRN 07/06/20 [History] Arformoterol [Brovana] 12 puff INH BID 08/28/20 [History] Budesonide [Pulmicort] 0.5 mg IH BID 08/28/20 [History] Ferrous Sulfate 324 mg PO Q12H 08/28/20 [History] Pantoprazole [ProTONIX] 40 mg PO DAILY 08/28/20 [History] oxyCODONE HCl/Acetaminophen [Oxycodone-Acetaminophen 5-325] 1 tab PO ASDIRECTED PRN 08/28/20 [History] polyethylene glycoL 3350 [Polyethylene Glycol 3350] 17 gm PO DAILY PRN 08/28/20 [History] traMADol [Ultram] 50 mg PO Q6H PRN 08/28/20 [History] Past Medical History HEENT History: Reports: Cataract, Impaired Vision Cardiovascular History: Reports: Heart Murmur Other Cardiovascular History: stenosis Respiratory History: Reports: Bronchitis, Recurrent, COPD Other Respiratory History: left lung consolidation Gastrointestinal History: Reports: Chronic Constipation Genitourinary History: Reports: None 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: Musculoskeletal History: Reports: Back Pain, Chronic, Fibromyalgia, Osteoarthritis Psychiatric History: Reports: Addiction Dermatologic History: Reports: Psoriasis - Infectious Disease History Infectious Disease History: Reports: Measles, Mumps - Past Surgical History Head Surgeries/Procedures: Reports: None HEENT Surgical History: Reports: Cataract Surgery Cardiovascular Surgical History: Reports: None Respiratory Surgical History: Reports: None GI Surgical History: Reports: Cholecystectomy, Colonoscopy Female Surgical History: Reports: Breast Biopsy Neurological Surgical History: Reports: None Musculoskeletal Surgical History: Reports: None Dermatological Surgical History: Reports: None Social & Family History - Family History Family Medical History: Noncontributory - Tobacco Use Tobacco Use Status *Q: Current Every Day Tobacco User Years of Tobacco use: 60 Packs/Tins Daily: 0.2 Used Tobacco, but Quit: No Second Hand Smoke Exposure: No - Caffeine Use Caffeine Use: Reports: Coffee, Soda, Tea Caffeine Use Comment: "lots" - Recreational Drug Use Recreational Drug Use: No - Living Situation & Occupation Living situation: Reports: , Alone Occupation: Retired (Lives alone in [facility]. Has 5 children 3 live in the area.) ED ROS GENERAL - Review of Systems Review Of Systems: See Below Constitutional: Reports: Malaise, Weakness HEENT: Reports: No Symptoms Respiratory: Reports: Shortness of Breath, Wheezing, Cough Cardiovascular: Reports: Lightheadedness Endocrine: Reports: No Symptoms GI/Abdominal: Reports: No Symptoms : Reports: No Symptoms Musculoskeletal: Reports: No Symptoms Skin: Reports: No Symptoms Neurological: Reports: No Symptoms Psychiatric: Reports: Anxiety ED EXAM, GENERAL - Physical Exam Exam: See Below Free Text/Narrative:: PT ARRIVED FEELING VERY SOB. sHE STATES THIS HAS BEEN GOING ON FOR 2 DAYS BUT MUCH WORSE TODAY. Exam Limited By: No Limitations General Appearance: Alert, Anxious, Moderate Distress Ears: Normal TMs Nose: Normal Inspection Throat/Mouth: Normal Oropharynx Head: Atraumatic Neck: Other (NECK VEINS ARE PROMINENT AT 45 DEGREE ANGLE. ) Respiratory/Chest: Decreased Breath Sounds, Wheezing, Other ( CHEST WAS VERY TIGHT AND PT WAS NOT MOVING AIR WELL. ) Cardiovascular: Regular Rate, Rhythm, Tachycardia GI/Abdominal: Soft, Non-Tender (Female) Exam: Deferred Rectal (Female) Exam: Black Stool Back Exam: Normal Inspection Extremities: Normal Inspection, Other ( NO EDEMA PRESENT) Neurological: Alert, Oriented, Normal Cognition Psychiatric: Anxious Course - Vital Signs Last Recorded V/S: Last Vital Signs Temp 36.4 C 08/28/20 15:35 Pulse 108 H 08/28/20 15:35 Resp 24 H 08/28/20 15:35 BP 132/80 08/28/20 15:35 Pulse Ox 96 08/28/20 15:35 - Orders/Labs/Meds Orders: Active Orders 24 hr Category Date Time Status Chest 1V Frontal [CR] Stat Exams 08/28/20 15:35 Taken CULTURE BLOOD [BC] Urgent Lab 08/28/20 16:17 Received CULTURE BLOOD [BC] Urgent Lab 08/28/20 16:30 Received CULTURE RESPIRATORY + SMEAR [RM] Stat Lab 08/28/20 15:31 Results Blood Culture x2 Reflex Set [OM.PC] Urgent Oth 08/28/20 16:17 Ordered Saline Lock Insert [OM.PC] Routine Oth 08/28/20 15:36 Ordered Labs: Laboratory Tests 08/28/20 08/28/20 08/28/20 Range/Units 15:40 15:41 15:41 WBC 9.3 (4.5-11.0) K/uL RBC 4.47 (3.30-5.50) M/uL Hgb 11.5 L D (12.0-15.0) g/dL Hct 40.5 (36.0-48.0) % MCV 91 (80-98) fL MCH 26 L (27-31) pg MCHC 28 L (32-36) % Plt Count 467 H (150-400) K/uL Neut % (Auto) 56 (36-66) % Lymph % (Auto) 23 L (24-44) % [place] % (Auto) 11 H (2-6) % Eos % (Auto) 9 H (2-4) % Baso % (Auto) 1 (0-1) % Puncture Site ABG pH (7.350-7.450) ABG pCO2 (35.0-42.0) mmHg ABG pO2 (75.0-100.0) mmHg ABG HCO3 (22.0-26.0) mmol/L ABG Total CO2 (21.0-25.0) mmol/L ABG O2 Saturation (95.0-98.0) % ABG O2 Content (15.0-23.0) %vol ABG Base Excess mm/L ABG Hemoglobin (12.0-16.0) g/dL ABG Oxyhemoglobin % ABG Carboxyhemoglobin (0.0-1.6) % ABG Methemoglobin % Emmanuel Test O2 Delivery Device Sodium 138 L (140-148) mmol/L Potassium 4.1 (3.6-5.2) mmol/L Chloride 99 L (100-108) mmol/L Carbon Dioxide 36 H (21-32) mmol/L Anion Gap 7.1 (5.0-14.0) mmol/L BUN 11 D (7-18) mg/dL Creatinine 0.6 (0.6-1.0) mg/dL Est Cr Clr Drug Dosing 44.98 mL/min Estimated GFR (MDRD) > 60 (>60) Glucose 126 H (74-106) mg/dL Lactic Acid (0.4-2.0) mmol/L Calcium 9.3 (8.5-10.1) mg/dL Total Bilirubin 0.2 (0.2-1.0) mg/dL AST 16 (15-37) U/L ALT 14 (12-78) U/L Alkaline Phosphatase 98 (46-116) U/L NT-Pro-B Natriuret Pep 640 H (5-450) pg/mL Total Protein 7.1 (6.4-8.2) g/dL Albumin 2.7 L (3.4-5.0) g/dL Globulin 4.4 H (2.3-3.5) g/dL Albumin/Globulin Ratio 0.6 L (1.2-2.2) SARS CoV-2 RNA Rapid KATIE 08/28/20 08/28/20 08/28/20 Range/Units 15:52 16:43 17:00 WBC (4.5-11.0) K/uL RBC (3.30-5.50) M/uL Hgb (12.0-15.0) g/dL Hct (36.0-48.0) % MCV (80-98) fL MCH (27-31) pg MCHC (32-36) % Plt Count (150-400) K/uL Neut % (Auto) (36-66) % Lymph % (Auto) (24-44) % [place] % (Auto) (2-6) % Eos % (Auto) (2-4) % Baso % (Auto) (0-1) % Puncture Site Rt radial ABG pH 7.373 (7.350-7.450) ABG pCO2 59.9 H (35.0-42.0) mmHg ABG pO2 62.8 L (75.0-100.0) mmHg ABG HCO3 34.0 H (22.0-26.0) mmol/L ABG Total CO2 31.2 H (21.0-25.0) mmol/L ABG O2 Saturation 91.4 L (95.0-98.0) % ABG O2 Content 14.5 L (15.0-23.0) %vol ABG Base Excess 7.6 mm/L ABG Hemoglobin 11.6 L (12.0-16.0) g/dL ABG Oxyhemoglobin 88.7 % ABG Carboxyhemoglobin 2.1 H (0.0-1.6) % ABG Methemoglobin 0.8 % Emmanuel Test Passed O2 Delivery Device Nasal cannula Sodium (140-148) mmol/L Potassium (3.6-5.2) mmol/L Chloride (100-108) mmol/L Carbon Dioxide (21-32) mmol/L Anion Gap (5.0-14.0) mmol/L BUN (7-18) mg/dL Creatinine (0.6-1.0) mg/dL Est Cr Clr Drug Dosing mL/min Estimated GFR (MDRD) (>60) Glucose (74-106) mg/dL Lactic Acid 1.0 (0.4-2.0) mmol/L Calcium (8.5-10.1) mg/dL Total Bilirubin (0.2-1.0) mg/dL AST (15-37) U/L ALT (12-78) U/L Alkaline Phosphatase (46-116) U/L NT-Pro-B Natriuret Pep (5-450) pg/mL Total Protein (6.4-8.2) g/dL Albumin (3.4-5.0) g/dL Globulin (2.3-3.5) g/dL Albumin/Globulin Ratio (1.2-2.2) SARS CoV-2 RNA Rapid KATIE Negative Meds: Medications Discontinued Medications Generic Name Dose Route Start Last Admin Trade Name Freq PRN Reason Stop Dose Admin Albuterol 2.5 mg 08/28/20 15:37 08/28/20 16:20 Proventil Neb Soln NEB 08/28/20 15:38 2.5 mg ONETIME ONE Administration Sodium Chloride 1,000 mls @ 300 mls/hr 08/28/20 16:15 08/28/20 16:25 Normal Saline IV 300 mls/hr ASDIRECTED RICARDO Administration Ceftriaxone Sodium 1 gm/ 50 mls @ 100 mls/hr 08/28/20 16:19 08/28/20 16:41 Sodium Chloride IV 08/28/20 16:48 100 mls/hr ONETIME ONE Administration Methylprednisolone Sodium Succinate 125 mg 08/28/20 15:36 08/28/20 16:22 Solu-Medrol IVPUSH 08/28/20 15:37 125 mg ONETIME ONE Administration Morphine Sulfate 1 mg 08/28/20 18:14 Morphine IVPUSH 08/28/20 18:15 ONETIME ONE Sodium Chloride 10 ml 08/28/20 15:36 08/28/20 16:31 Saline Flush FLUSH 10 ml ASDIRECTED PRN Administration Keep Vein Open - Re-Assessments/Exams Free Text/Narrative Re-Assessment/Exam: 08/28/20 16:56 pT WAS FOUND TO HAVE A RESP ACIDOSIS AND A CO2 OF 60. BIPAP WAS DISCUSSED WITH THE PT AND SHE IS NOT WILLING AT THIS POINT. sHE HAS SEVERE COPD AND DOES NOT LIKE ANYTHING ON HER FASCE. sHE DOER S NOT HAVE A FEVER. a SPUTUM CULTURE AND BLOOD CULTURES WERE OBTAINED AND SHE WAS GIVEN ROCEPHEN IV. HER O2 IS DOWN TO 1 LITER AND SHE IS MAINTAINING AT 95 %. 08/28/20 17:45 PT WAS FOUND TO BE cOVID NEG. [facility] DID ACCEPT THE PT. AND WILL CALL WITH A BED. Departure - Departure Time of Disposition: 18:20 Disposition: DC/Tfer to Acute Hospital 02 Condition: Fair Clinical Impression: Right upper lobe pneumonia, Hypoxia, COPD exacerbation, Elevated CO2 level - Discharge Information Referrals: PCP,None [Primary Care Provider] - Forms: ED Department Discharge Care Plan Goals: sINCE THERE ARE NO BEDS IN [place]. sHE WAS ACCEPTED BY [facility]. Sepsis Event Note (ED) - Evaluation Sepsis Screening Result: Possible Sepsis Risk - My Orders Last 24 Hours: My Active Orders 08/28/20 15:31 CULTURE RESPIRATORY + SMEAR [RM] Stat 08/28/20 15:35 Chest 1V Frontal [CR] Stat 08/28/20 15:36 Saline Lock Insert [OM.PC] Routine 08/28/20 16:17 CULTURE BLOOD [BC] Urgent Blood Culture x2 Reflex Set [OM.PC] Urgent 08/28/20 16:30 CULTURE BLOOD [BC] Urgent - Assessment/Plan Last 24 Hours: My Active Orders 08/28/20 15:31 CULTURE RESPIRATORY + SMEAR [RM] Stat 08/28/20 15:35 Chest 1V Frontal [CR] Stat 08/28/20 15:36 Saline Lock Insert [OM.PC] Routine 08/28/20 16:17 CULTURE BLOOD [BC] Urgent Blood Culture x2 Reflex Set [OM.PC] Urgent 08/28/20 16:30 CULTURE BLOOD [BC] Urgent
[2020-08-28] MEDS ORDERED: Sodium Chloride 0.9% 1,000 ML IV SCH (16:15)
[2020-08-28] MEDS ORDERED: cefTRIAXone 1 GM in Sodium Chloride 0.9% 50 ML IV ONE (16:19)
[2020-08-28] MEDS ORDERED: Morphine 2 MG/ML SYRINGE IVPUSH ONE (18:14)
--- NOTE | 2020-08-29 09:11 | CR ---
CHEST: Portable 08/28/2020 4:02 PM CLINICAL HISTORY:SOB COMPARISON:07/16/2020 FINDINGS: Patient has severe changes of COPD greater on the right. There is increasing density in the right apex. Patient previously had the infiltrate as well as a pneumothorax in the right upper lobe.. This increased density may be pneumonic infiltrate or consolidation along. A loculated left pleural collection in the apex is not excluded. Heart size and pulmonary vascularity are normal. There are atherosclerotic changes in the aorta. IMPRESSION: Severe COPD Increasing right apical density may represent a combination of consolidation and a loculated pleural effusion. If clinically indicated CT chest should be considered
== END 2020-08-28 18:35 ==
LOC: JP.ED 15:26
DX: J18.9 Pneumonia, unspecified organism (principal); J44.1 Chronic obstructive pulmonary disease with (acute) exacerbation; R09.02 Hypoxemia; R79.81 Abnormal blood-gas level; J44.9 Chronic obstructive pulmonary disease, unspecified; Z20.828 Contact with and (suspected) exposure to other viral communicable diseases; Z88.1 Allergy status to other antibiotic agents; Z88.2 Allergy status to sulfonamides; Z90.49 Acquired absence of other specified parts of digestive tract; Z79.899 Other long term (current) drug therapy
CPT/HCPCS: 36415; 36600; 71045; 80053; 82803; 83605; 83880; 85025; 87040; 87070; 87205; 94640; 96365; 96375; 99285; J0696; J2930; J7030; J7050; U0002

== ENCOUNTER 2021-03-12 15:44 | Emergency (ER) | payer MEDICARE ==
[2021-03-12 15:59] VITALS: BP 132/82; PULSE 96
[2021-03-12] MEDS ORDERED: Sodium Chloride 0.9% 10 ML Syringe FLUSH PRN (16:05)
[2021-03-12] MEDS ORDERED: methylPREDNISolone Sodium Succinate 125 MG/2 ML SDV IVPUSH ONE (16:06)
--- NOTE | 2021-03-12 16:07 | EDM.PDOC ---
ED HPI GENERAL MEDICAL PROBLEM - General Chief Complaint: Respiratory Problem Stated Complaint: MEDICAL VIA NORTH Time Seen by Provider: 03/12/21 16:06 Source of Information: Reports: Patient History Limitations: Reports: No Limitations - History of Present Illness INITIAL COMMENTS - FREE TEXT/NARRATIVE: pt has had increased sob and very tight and wheezing. She has been sob for several days and got worse today. Onset: Gradual Duration: Hour(s): Location: Reports: Chest Associated Symptoms: Reports: Cough, Shortness of Breath - Related Data Allergies Allergy/AdvReac Type Severity Reaction Status Date / Time amoxicillin [Amoxicillin] Allergy Severe Airway Verified 03/12/21 15:48 Tightness Sulfa (Sulfonamide Allergy Rash Verified 03/12/21 15:48 Antibiotics) Home Meds: Home Meds *O2 2 unit INH ASDIRECTED 06/02/18 [History] Albuterol [Ventolin HFA] 2 puff IH Q4H PRN 06/02/18 [History] Ipratropium/Albuterol Sulfate [Iprat-Albut 0.5-3(2.5) MG/3 ML] 1 inhalation PO BID 06/02/18 [History] Cyclobenzaprine [Flexeril] 10 mg PO BEDTIME 07/06/20 [History] Montelukast [Singulair] 10 mg PO BEDTIME 07/06/20 [History] Ondansetron [Zofran ODT] 4 mg PO Q8HR PRN 07/06/20 [History] Budesonide [Pulmicort] 0.5 mg IH BID 08/28/20 [History] polyethylene glycoL 3350 [Polyethylene Glycol 3350] 17 gm PO DAILY PRN 08/28/20 [History] Past Medical History HEENT History: Reports: Cataract, Impaired Vision Cardiovascular History: Reports: Heart Murmur Other Cardiovascular History: stenosis Respiratory History: Reports: Bronchitis, Recurrent, COPD Other Respiratory History: left lung consolidation Gastrointestinal History: Reports: Chronic Constipation Genitourinary History: Reports: None 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: Musculoskeletal History: Reports: Back Pain, Chronic, Fibromyalgia, Osteoarthritis Psychiatric History: Reports: Addiction Dermatologic History: Reports: Psoriasis - Infectious Disease History Infectious Disease History: Reports: Measles, Mumps - Past Surgical History Head Surgeries/Procedures: Reports: None HEENT Surgical History: Reports: Cataract Surgery Cardiovascular Surgical History: Reports: None Respiratory Surgical History: Reports: None GI Surgical History: Reports: Cholecystectomy, Colonoscopy Female Surgical History: Reports: Breast Biopsy Neurological Surgical History: Reports: None Musculoskeletal Surgical History: Reports: None Dermatological Surgical History: Reports: None Social & Family History - Family History Family Medical History: No Pertinent Family History - Tobacco Use Tobacco Use Status *Q: Current Some Day Tobacco User Years of Tobacco use: 40 Packs/Tins Daily: 0.1 - Caffeine Use Caffeine Use: Reports: Coffee, Soda, Tea Caffeine Use Comment: "lots" - Living Situation & Occupation Living situation: Reports: , Alone Occupation: Retired (Lives alone in [facility]. Has 5 children 3 live in the area.) ED ROS GENERAL - Review of Systems Review Of Systems: See Below Constitutional: Reports: Weakness HEENT: Reports: No Symptoms Respiratory: Reports: Shortness of Breath, Wheezing, Cough Cardiovascular: Reports: No Symptoms Endocrine: Reports: No Symptoms GI/Abdominal: Reports: No Symptoms : Reports: No Symptoms Musculoskeletal: Reports: No Symptoms Skin: Reports: No Symptoms ED EXAM, GENERAL - Physical Exam Exam: See Below Free Text/Narrative:: pt arrived looking much better after she had a duol neb in the ambulance. She has not had a fever. Exam Limited By: No Limitations General Appearance: Alert, Anxious, Mild Distress Ears: Normal TMs Nose: Normal Inspection Throat/Mouth: Normal Inspection Head: Atraumatic Neck: Normal Inspection Respiratory/Chest: Decreased Breath Sounds, Wheezing Cardiovascular: Regular Rate, Rhythm GI/Abdominal: Soft, Non-Tender (Female) Exam: Deferred Rectal (Female) Exam: Deferred Back Exam: Normal Inspection Extremities: Normal Inspection Course - Vital Signs Last Recorded V/S: Last Vital Signs Temp 35.7 C L 03/12/21 16:01 Pulse 96 03/12/21 16:01 Resp 18 03/12/21 16:01 BP 132/82 03/12/21 16:01 Pulse Ox 95 03/12/21 16:01 - Orders/Labs/Meds Orders: Active Orders 24 hr Category Date Time Status Saline Lock Insert [OM.PC] Routine Oth 03/12/21 16:05 Ordered Labs: Laboratory Tests 03/12/21 03/12/21 Range/Units 16:15 16:15 WBC 8.7 (4.5-11.0) K/uL RBC 4.89 (3.30-5.50) M/uL Hgb 12.2 (12.0-15.0) g/dL Hct 39.6 (36.0-48.0) % MCV 81 (80-98) fL MCH 25 L (27-31) pg MCHC 31 L (32-36) % Plt Count 346 (150-400) K/uL Neut % (Auto) 68 H (36-66) % Lymph % (Auto) 21 L (24-44) % [place] % (Auto) 5 (2-6) % Eos % (Auto) 5 H (2-4) % Baso % (Auto) 1 (0-1) % Sodium 140 (140-148) mmol/L Potassium 4.1 (3.6-5.2) mmol/L Chloride 101 (100-108) mmol/L Carbon Dioxide 31 (21-32) mmol/L Anion Gap 8.3 (5.0-14.0) mmol/L BUN 17 D (7-18) mg/dL Creatinine 0.7 (0.6-1.0) mg/dL Est Cr Clr Drug Dosing 42.69 mL/min Estimated GFR (MDRD) > 60 (>60) Glucose 113 H (74-106) mg/dL Calcium 9.1 (8.5-10.1) mg/dL Total Bilirubin 0.3 (0.2-1.0) mg/dL AST 16 (15-37) U/L ALT 16 (12-78) U/L Alkaline Phosphatase 81 (46-116) U/L Total Protein 6.7 (6.4-8.2) g/dL Albumin 3.3 L (3.4-5.0) g/dL Globulin 3.4 (2.3-3.5) g/dL Albumin/Globulin Ratio 1.0 L (1.2-2.2) Meds: Medications Discontinued Medications Generic Name Dose Route Start Last Admin Trade Name Freq PRN Reason Stop Dose Admin Albuterol 2.5 mg 03/12/21 16:55 03/12/21 17:17 Albuterol 0.083% 2.5 Mg/3 Ml Neb Soln NEB 03/12/21 16:56 2.5 mg ONETIME ONE Administration Methylprednisolone Sodium Succinate 125 mg 03/12/21 16:06 03/12/21 16:20 Methylprednisolone Sodium Succinate 125 Mg/2 Ml Sdv IVPUSH 03/12/21 16:07 125 mg ONETIME ONE Administration Sodium Chloride 10 ml 03/12/21 16:05 03/12/21 16:20 Sodium Chloride 0.9% 10 Ml Syringe FLUSH 10 ml ASDIRECTED PRN Administration Keep Vein Open - Re-Assessments/Exams Free Text/Narrative Re-Assessment/Exam: 03/12/21 18:07 pt was given solumedrol 125 iv, albuterol neb, she was feeling much better. Chest xray actually looked better than the last film she had. Departure - Departure Time of Disposition: 17:52 Disposition: DC/Tfer to Hospice-Med Fac 51 Condition: Fair Clinical Impression: COPD exacerbation - Discharge Information Instructions: Chronic Obstructive Pulmonary Disease Exacerbation, [id number] Referrals: Carla Swartz PA-C [Primary Care Provider] - Forms: ED Department Discharge Care Plan Goals: continue same inhalers. Predisone will be increased . pt will be covered with [facility] appt with Carla Taylor in 2-3 days. i Sepsis Event Note (ED) - Evaluation Sepsis Screening Result: Possible Sepsis Risk - My Orders Last 24 Hours: My Active Orders 03/12/21 16:05 Saline Lock Insert [OM.PC] Routine - Assessment/Plan Last 24 Hours: My Active Orders 03/12/21 16:05 Saline Lock Insert [OM.PC] Routine
--- NOTE | 2021-03-12 16:44 | CRLCR ---
INDICATION: Shortness of breath, wheezing. TECHNIQUE: Chest 1 view. COMPARISON: Chest radiograph 08/28/2020. FINDINGS: Mild patchy opacity in the right lung apex is improved compared to prior exam. No pleural effusion or pneumothorax. Normal heart size and pulmonary vascularity. Calcified tortuous aorta. Surgical clips right upper quadrant. The bones are unremarkable. IMPRESSION: Mild patchy opacity in the right lung apex is improved compared to prior exam. Dictated by Annetta Bowles MD @ 03/12/2021 4:43:[address] Annetta Bowles @ Mar 12 2021 4:43PM
[2021-03-12] MEDS ORDERED: Albuterol 0.083% 2.5 MG/3 ML Neb Soln NEB ONE (16:55)
== END 2021-03-12 18:17 | disposition hospice, inpatient (51) ==
LOC: JP.ED 15:44
DX: J44.1 Chronic obstructive pulmonary disease with (acute) exacerbation (principal); Z88.0 Allergy status to penicillin; Z88.2 Allergy status to sulfonamides; Z72.0 Tobacco use
CPT/HCPCS: 36415; 71045; 80053; 85025; 96374; 99284; 99285-25; J2930

== ENCOUNTER 2021-09-09 15:18 | Emergency (ER) | payer MEDICARE ==
--- NOTE | 2021-09-09 16:20 | EDM.PDOC ---
ED HPI GENERAL MEDICAL PROBLEM - General Chief Complaint: Syncope Stated Complaint: FALL VIA [place] Time Seen by Provider: 09/09/21 16:05 Source of Information: Reports: Patient, EMS, Old Records, RN History Limitations: Reports: No Limitations - History of Present Illness INITIAL COMMENTS - FREE TEXT/NARRATIVE: 76 yo female is almost done with a bid med for "pneumonia" prescribed by one of the [facility] providers. Today she was walking to the bathroom and passed out. This has never happened to her before. She is here via EMS. She feels OK now. 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: Other (see below) (none) Left Knee Pain Score (Numeric/FACES): 5 - Related Data Allergies Allergy/AdvReac Type Severity Reaction Status Date / Time amoxicillin [Amoxicillin] Allergy Severe Airway Verified 09/09/21 15:44 Tightness Sulfa (Sulfonamide Allergy Rash Verified 09/09/21 15:44 Antibiotics) Home Meds: Home Meds *O2 2 unit INH ASDIRECTED 06/02/18 [History] Albuterol [Ventolin HFA] 2 puff IH Q4H PRN 06/02/18 [History] Ipratropium/Albuterol Sulfate [Iprat-Albut 0.5-3(2.5) MG/3 ML] 1 inhalation PO BID 06/02/18 [History] Cyclobenzaprine [Flexeril] 10 mg PO BEDTIME 07/06/20 [History] Montelukast [Singulair] 10 mg PO BEDTIME 07/06/20 [History] Ondansetron [Zofran ODT] 4 mg PO Q8HR PRN 07/06/20 [History] Doxycycline [Doxycycline Hyclate] 100 mg PO BID 09/09/21 [History] dilTIAZem HCL [Dilt-XR] 1 tab PO DAILY 09/09/21 [History] predniSONE [Prednisone] 5 mg PO ASDIRECTED 09/09/21 [History] Past Medical History HEENT History: Reports: Cataract, Impaired Vision Cardiovascular History: Reports: Heart Murmur Other Cardiovascular History: stenosis Respiratory History: Reports: Bronchitis, Recurrent, COPD Other Respiratory History: left lung consolidation Gastrointestinal History: Reports: Chronic Constipation Genitourinary History: Reports: None 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: Musculoskeletal History: Reports: Back Pain, Chronic, Fibromyalgia, Osteoarthritis Psychiatric History: Reports: Addiction Dermatologic History: Reports: Psoriasis - Infectious Disease History Infectious Disease History: Reports: Chicken Pox, Measles, Mumps - Past Surgical History Head Surgeries/Procedures: Reports: None HEENT Surgical History: Reports: Cataract Surgery Cardiovascular Surgical History: Reports: None Respiratory Surgical History: Reports: None GI Surgical History: Reports: Cholecystectomy, Colonoscopy Female Surgical History: Reports: Breast Biopsy Neurological Surgical History: Reports: None Musculoskeletal Surgical History: Reports: None Dermatological Surgical History: Reports: None Social & Family History - Family History Family Medical History: No Pertinent Family History - Tobacco Use Tobacco Use Status *Q: Current Every Day Tobacco User Years of Tobacco use: 50 Packs/Tins Daily: 0.5 - Caffeine Use Caffeine Use: Reports: Coffee, Soda Caffeine Use Comment: "lots" - Recreational Drug Use Recreational Drug Use: No - Living Situation & Occupation Living situation: Reports: , Alone Occupation: Retired (Lives alone in [facility]. Has 5 children 3 live in the area.) ED ROS GENERAL - Review of Systems Review Of Systems: See Below Constitutional: Reports: No Symptoms HEENT: Reports: No Symptoms Respiratory: Reports: No Symptoms. Denies: Shortness of Breath, Pleuritic Chest Pain Cardiovascular: Reports: Syncope. Denies: Chest Pain Endocrine: Reports: No Symptoms GI/Abdominal: Reports: No Symptoms : Reports: No Symptoms Musculoskeletal: Reports: No Symptoms Skin: Reports: No Symptoms Neurological: Reports: No Symptoms - Physical Exam Exam: See Below Exam Limited By: No Limitations General Appearance: Alert, WD/WN, No Apparent Distress Eye Exam: Bilateral Eye: Normal Inspection Ears: Normal External Exam, Normal Canal, Hearing Grossly Normal, Normal TMs Nose: Normal Inspection, No Blood Throat/Mouth: Normal Inspection, Normal Lips, Normal Oropharynx, Normal Voice, No Airway Compromise Head Exam: Atraumatic, Normocephalic Neck: Normal Inspection Respiratory/Chest: No Respiratory Distress, Lungs Clear, Normal Breath Sounds, No Accessory Muscle Use Cardiovascular: Regular Rate, Rhythm, No Edema GI/Abdominal: Normal Bowel Sounds, Soft, Non-Tender, No Distention. No: Distended Rectal (Female) Exam: Normal Exam, Other (formed stool present, dark brown in color, no rectal masses) Neuro Exam (Abbreviated): Alert, Oriented, CN II-XII Intact, Normal Cognition, No Motor/Sensory Deficits Back Exam: Normal Inspection. No: CVA Tenderness (R), CVA Tenderness (L) Extremities: Normal Inspection, Normal Range of Motion, Non-Tender, No Pedal Edema. No: Pedal Edema, Jose M's Sign Psychiatric: Normal Affect, Normal Mood Skin Exam: Warm, Dry, Intact, Normal Color, No Rash Course - Vital Signs Last Recorded V/S: Last Vital Signs Temp 36.5 C 09/09/21 15:23 Pulse 69 09/09/21 17:11 Resp 22 H 09/09/21 17:11 BP 137/66 09/09/21 17:11 Pulse Ox 100 09/09/21 17:11 Orthostatic Blood Pressure [ 145/61 Standing] Orthostatic Blood Pressure [ 126/64 Sitting] Orthostatic Blood Pressure [ 123/68 Supine] - Orders/Labs/Meds Orders: Active Orders 24 hr Category Date Time Status Cardiac Monitoring [RC] .As Directed Care 09/09/21 15:33 Active Orthostatic Vital Signs [RC] ASDIRECTED Care 09/09/21 15:33 Active Labs: Laboratory Tests 09/09/21 09/09/21 09/09/21 Range/Units 15:39 16:20 16:20 WBC 12.3 H (4.5-11.0) K/uL RBC 4.59 (3.30-5.50) M/uL Hgb 8.3 L D (12.0-15.0) g/dL Hct 30.4 L (36.0-48.0) % MCV 66 L (80-98) fL MCH 18 L (27-31) pg MCHC 27 L (32-36) % Plt Count 408 H (150-400) K/uL Sodium 143 (140-148) mmol/L Potassium 4.4 (3.6-5.2) mmol/L Chloride 104 (100-108) mmol/L Carbon Dioxide 30 (21-32) mmol/L Anion Gap 8.8 (5.0-14.0) mmol/L BUN 23 H (7-18) mg/dL Creatinine 0.7 (0.6-1.0) mg/dL Est Cr Clr Drug Dosing 46.95 mL/min Estimated GFR (MDRD) > 60 (>60) Glucose 114 H (74-106) mg/dL Calcium 9.0 (8.5-10.1) mg/dL Troponin I < 0.017 (0.000-0.056) ng/mL Urine Color Yellow (YELLOW) Urine Appearance Clear (CLEAR) Urine pH 6.0 (5.0-8.0) Ur Specific [place] 1.020 (1.008-1.030) Urine Protein Negative (NEGATIVE) mg/dL Urine Glucose (UA) Negative (NEGATIVE) mg/dL Urine Ketones Negative (NEGATIVE) mg/dL Urine Occult Blood Negative (NEGATIVE) Urine Nitrite Negative (NEGATIVE) Urine Bilirubin Negative (NEGATIVE) Urine Urobilinogen 0.2 (0.2-1.0) EU/dL Ur Leukocyte Esterase Negative (NEGATIVE) Urine RBC 0-5 (0-5) Urine WBC 0-5 (0-5) Ur Epithelial Cells Rare Amorphous Sediment Not seen Urine Bacteria Moderate Urine Mucus Few - Re-Assessments/Exams Free Text/Narrative Re-Assessment/Exam: 09/09/21 17:42 orthostats +, will give IV fluids. Departure - Departure Time of Disposition: 18:35 Disposition: Home, Self-Care 01 Condition: Fair Clinical Impression: Orthostasis Syncope Qualifiers: Syncope type: unspecified Qualified Code(s): R55 - Syncope and collapse Anemia Qualifiers: Anemia type: unspecified type Qualified Code(s): D64.9 - Anemia, unspecified - Discharge Information *PRESCRIPTION DRUG MONITORING PROGRAM REVIEWED*: Not Applicable *COPY OF PRESCRIPTION DRUG MONITORING REPORT IN PATIENT LEO: Not Applicable Referrals: PCP,None [Primary Care Provider] - Forms: ED Department Discharge Additional Instructions: Drink enough fluids so that your urine is light yellow in color. Sit with your feet dangling for awhile before you try to stand to make sure you are not going to get dizzy. Recheck in the clinic [facility] for an anemia work up . Return as needed. Sepsis Event Note (ED) - Evaluation Sepsis Screening Result: No Definite Risk - Focused Exam Vital Signs: Vital Signs Temp Pulse Resp BP Pulse Ox 09/09/21 17:11 69 22 H 137/66 100 09/09/21 15:23 36.5 C 80 16 130/65 94 L 09/09/21 15:20 36.5 C 80 16 130/65 94 L - My Orders Last 24 Hours: My Active Orders 09/09/21 15:33 Cardiac Monitoring [RC] .As Directed Orthostatic Vital Signs [RC] ASDIRECTED - Assessment/Plan Last 24 Hours: My Active Orders 09/09/21 15:33 Cardiac Monitoring [RC] .As Directed Orthostatic Vital Signs [RC] ASDIRECTED
[2021-09-09 17:12] VITALS: BP 137/66; PULSE 69
[2021-09-09] MEDS ORDERED: Lactated Ringers 1,000 ML IV ONE (17:43)
== END 2021-09-09 19:51 | disposition home or self-care (01) ==
LOC: JP.ED 15:18
DX: I95.1 Orthostatic hypotension (principal); D64.9 Anemia, unspecified; J44.9 Chronic obstructive pulmonary disease, unspecified; Z72.0 Tobacco use; Z88.0 Allergy status to penicillin; Z88.2 Allergy status to sulfonamides
CPT/HCPCS: 36415; 80048; 81001; 82272; 84484; 85027; 99284; J7120

== ENCOUNTER 2023-12-20 18:24 | Emergency (ER) | payer MEDICARE ==
[2023-12-20 18:35] VITALS: BP 126/82; PULSE 117
[2023-12-20 19:10] LABS: APPEARANCE,URINE TURBID (CLEAR); BILIRUBIN,URINE SMALL (NEGATIVE); COLOR,URINE RED (YELLOW); GLUCOSE,URINE NEGATIVE (NEGATIVE); KETONES,URINE 40 mg/dL (NEGATIVE); NITRITE,URINE NEGATIVE (NEGATIVE); PROTEIN,URINE >=300 mg/dL (NEGATIVE); UROBILINOGEN,URINE 0.2 EU/dL (0.2-1.0)
[2023-12-20 19:14] LABS: AMORPHOUS SEDIMENT,URINE NOT SEEN; BACTERIA,URINE FEW; EPITHELIAL CELLS,URINE FEW; MUCUS,URINE RARE; RBC,URINE >100 (0-5)
[2023-12-20 19:23] LABS: BASOPHILS ABSOLUTE AUTO 0.09 K/uL (0.00-0.10); BASOPHILS PERCENT AUTO 0.6 % (0.1-1.3); EOSINOPHILS ABSOLUTE AUTO 0.16 K/uL (0.00-0.40); HEMATOCRIT 41.7 % (34.3-46.0); HEMOGLOBIN 13.6 g/dL (11.2-15.5); IMMATURE GRAN ABSOLUTE AUTO 0.07 K/uL (0.00-0.23); IMMATURE GRAN PERCENT AUTO 0.5 % (0.0-0.7); LYMPHOCYTES ABSOLUTE AUTO 1.31 K/uL (0.8-3.3); LYMPHOCYTES PERCENT AUTO 8.4 % (11.4-47.7); MEAN CORPUSCULAR HEMOGLOBIN 27.5 pg (31.6-35.5); MEAN CORPUSCULAR HGB CONC 32.6 g/dL (31.6-35.5); MEAN CORPUSCULAR VOLUME 84.2 fL (81.4-99.0); MONOCYTES ABSOLUTE AUTO 1.21 K/uL (0.20-0.90); MONOCYTES PERCENT AUTO 7.8 % (3.3-12.6); NEUTROPHILS ABSOLUTE AUTO 12.71 K/uL (1.0-7.6); NEUTROPHILS PERCENT AUTO 81.7 % (40.0-78.1); PLATELET COUNT,PLT 305 K/uL (130-375); RED BLOOD CELL COUNT 4.95 M/uL (3.77-5.24); WHITE BLOOD CELL COUNT,WBC 15.6 K/uL (3.2-11.0)
[2023-12-20 19:36] LABS: OCCULT BLOOD,URINE LARGE (NEGATIVE)
[2023-12-20 19:37] LABS: LEUKOCYTE ESTERASE,URINE NEGATIVE (NEGATIVE)
[2023-12-20 19:41] LABS: CALCIUM 8.9 mg/dL (8.5-10.1); CREATININE 0.8 mg/dL (0.6-1.0); EST CRCL DRUG DOSING (CG) 35.74 mL/min; POTASSIUM,K 3.5 mmol/L (3.6-5.2)
[2023-12-20 19:46] LABS: ANION GAP 13.5 mmol/L (5.0-14.0)
[2023-12-20] MEDS: Sodium Chloride 0.9% 10 ML Syringe FLUSH ONE (21:20)
[2023-12-20] MEDS: Iopamidol 612 MG/ML 100 ML Bottle IV SCH (21:20)
[2023-12-20] MEDS: Sodium Chloride 0.9% 80 ML IV SCH (21:20)
[2023-12-20] MEDS: Cyclobenzaprine 10 MG Tab PO ONE (21:55)
[2023-12-20] MEDS: Levofloxacin 250 MG Tab PO ONE ×2 (22:40→23:18)
== END 2023-12-21 00:14 | disposition home or self-care (01) ==
LOC: JP.ED 18:24
DX: J18.9 Pneumonia, unspecified organism (principal); J44.9 Chronic obstructive pulmonary disease, unspecified; F17.210 Nicotine dependence, cigarettes, uncomplicated; Z79.51 Long term (current) use of inhaled steroids; Z88.0 Allergy status to penicillin; Z88.2 Allergy status to sulfonamides; Z79.899 Other long term (current) drug therapy
CPT/HCPCS: 36415; 71260; 74177; 80048; 81001; 83605; 85025; 86140; 87040; 87086; 93005; 99284; A9270; J3490; Q9967

== ENCOUNTER 2025-08-12 13:38 | Inpatient (IN) | payer MEDICARE ==
[2025-08-12] MEDS ORDERED: Sodium Chloride 0.9% 10 ML Syringe FLUSH PRN ×2 (13:46→14:28)
[2025-08-12 13:58] LABS: BASOPHILS ABSOLUTE AUTO 0.09 K/uL (0.00-0.10); BASOPHILS PERCENT AUTO 0.7 % (0.1-1.3); EOSINOPHILS ABSOLUTE AUTO 0.39 K/uL (0.00-0.40); EOSINOPHILS PERCENT AUTO 3.0 % (0.0-5.4); IMMATURE GRAN ABSOLUTE AUTO 0.05 K/uL (0.00-0.23); IMMATURE GRAN PERCENT AUTO 0.4 % (0.0-0.7); LYMPHOCYTES ABSOLUTE AUTO 2.05 K/uL (0.8-3.3); LYMPHOCYTES PERCENT AUTO 15.8 % (11.4-47.7); MONOCYTES ABSOLUTE AUTO 1.37 K/uL (0.20-0.90); MONOCYTES PERCENT AUTO 10.5 % (3.3-12.6); NEUTROPHILS ABSOLUTE AUTO 9.04 K/uL (1.0-7.6); NEUTROPHILS PERCENT AUTO 69.6 % (40.0-78.1); PLATELET COUNT,PLT 430 K/uL (130-375); RED BLOOD CELL COUNT 5.10 M/uL (3.77-5.24); WHITE BLOOD CELL COUNT,WBC 13.0 K/uL (3.2-11.0)
[2025-08-12] MEDS: methylPREDNISolone Sodium Succinate 125 MG/2 ML SDV IVPUSH ONE (14:11)
[2025-08-12 14:14] LABS: BASE EXCESS ARTERIAL -1.3 mm/L; BICARBONATE,ARTERIAL 24.3 mmol/L (22.0-26.0); O2 SATURATION ARTERIAL 97.1 % (95.0-98.0); OXYHEMOGLOBIN 94.5 %; PCO2 ARTERIAL 46.7 mmHg (35.0-42.0); PO2 ARTERIAL 95.3 mmHg (75.0-100.0); TOTAL HEMOGLOBIN 13.9 g/dL (12.0-16.0)
[2025-08-12 14:26] LABS: A/G RATIO 0.6 (1.2-2.2); ALANINE AMINOTRANSFERASE,ALT 10 U/L (12-78); ASPARTATE AMNIOTRANSFERASE,AST 16 U/L (15-37); BILIRUBIN TOTAL 0.4 mg/dL (0.2-1.0); BLOOD UREA NITROGEN,BUN 13 mg/dL (7-18); CARBON DIOXIDE,CO2 29 mmol/L (21-32); CHLORIDE,CL 99 mmol/L (100-108); CREATININE 0.6 mg/dL (0.6-1.0); EST CRCL DRUG DOSING (CG) 41.41 mL/min; ESTIMATED GFR 90 mL/min (>60); GLUCOSE RANDOM 98 mg/dL (74-106); POTASSIUM,K 4.1 mmol/L (3.6-5.2); PROTEIN TOTAL,TP 7.2 g/dL (6.4-8.2); SODIUM,NA 137 mmol/L (140-148); TROPONIN I HIGH SENSITIVITY 16.0 pg/mL (<=60.3)
[2025-08-12] MEDS: Ondansetron 4 MG/2 ML SDV IVPUSH ONE (15:50)
[2025-08-12] MEDS ORDERED: guaiFENesin/Dextromethorphan 100-10 MG/5 ML Soln 10 ML Cup PO PRN (16:39)
[2025-08-12] MEDS ORDERED: Ondansetron 4 MG Tab.DIS PO PRN (16:39)
[2025-08-12] MEDS ORDERED: Sennosides/Docusate Sodium 50-8.6 MG Tab PO PRN (16:39)
[2025-08-12] MEDS ORDERED: Magnesium Hydroxide 400 MG/5 ML Susp 30 ML Cup PO PRN (16:39)
[2025-08-12] MEDS ORDERED: Ondansetron 4 MG/2 ML SDV IV PRN (16:39)
[2025-08-12] MEDS: Magnesium Sulfate 2 GM/50 mL 2 GM in Premix Bag 1 BAG IV ONE (18:18)
[2025-08-12] MEDS: Lactobacillus Rhamnosus GG (Probiotic) Cap PO SCH (20:26)
[2025-08-12] MEDS: methylPREDNISolone Sodium Succinate 125 MG/2 ML SDV IVPUSH SCH (22:51)
[2025-08-13] MEDS: Albuterol 0.083% 2.5 MG/3 ML Neb Soln NEB PRN (07:55)
[2025-08-13 11:09] VITALS: BP 125/65; PULSE 103
== END 2025-08-13 11:50 | disposition home or self-care (01) | DRG 189 ==
LOC: JP.ED 13:38 → JP.MS 15:49
PROVIDERS: ADMIT Internal Medicine; ATTEND Internal Medicine
DX: J96.21 Acute and chronic respiratory failure with hypoxia (principal); J44.1 Chronic obstructive pulmonary disease with (acute) exacerbation; E87.20 Acidosis, unspecified; J20.9 Acute bronchitis, unspecified; F17.200 Nicotine dependence, unspecified, uncomplicated; Z66 Do not resuscitate; H54.7 Unspecified visual loss; J43.9 Emphysema, unspecified; K59.00 Constipation, unspecified; M54.9 Dorsalgia, unspecified; G89.29 Other chronic pain; M19.90 Unspecified osteoarthritis, unspecified site; Z88.1 Allergy status to other antibiotic agents; Z99.81 Dependence on supplemental oxygen; Z88.0 Allergy status to penicillin; Z88.2 Allergy status to sulfonamides; Z79.899 Other long term (current) drug therapy; Z79.52 Long term (current) use of systemic steroids; Z98.49 Cataract extraction status, unspecified eye; Z98.890 Other specified postprocedural states; Z90.49 Acquired absence of other specified parts of digestive tract
CPT/HCPCS: 36415; 36600; 71045 ×2; 80053; 82803; 84484; 85025; 86140; 94660; 96365; 96375; 99285; J0696; J2270; J2919; 94640; 99223; 99238; A9270-GY; J1271; J2405; J3475; J7512